=== PATIENT | female | born 1960 | race Caucasian/White ===

== ENCOUNTER 2017-07-11 04:08 | Emergency (ER) | payer OTHER ==
[~2017-07-11] VITALS: Ht 157.5 cm; Wt 59.0 kg
[2017-07-11] MEDS ORDERED: ASPI325 PO (04:38)
[2017-07-11 04:58] LABS: Source, Urine Clean Catch
[2017-07-11 05:00] LABS: Bilirubin, Urine Neg (Neg); Blood, Urine 4+ (Neg); Glucose Qualitative, Urine Neg (Neg); Ketones, Urine Neg (Neg); Leukocyte Esterase, Urine 2+ (Neg); Nitrite, Urine Pos (Neg); Protein, Urine 2+ (Neg); Specific Gravity, Urine 1.015 (1.003-1.022); Urobilinogen, Urine NORM (Normal); pH, Urine 6.5 (5.0-8.0)
[2017-07-11 05:02] LABS: BASOPHILS ABSOLUTE AUTO 0.03 K/mm3 (0.00-0.23); BASOPHILS PERCENT AUTO 0 % (0-2); EOSINOPHILS ABSOLUTE AUTO 0.03 K/mm3 (0.00-0.68); EOSINOPHILS PERCENT AUTO 0 % (0-6); Hematocrit 47.9 % (33.0-51.0); Hemoglobin 16.6 g/dL (11.5-16.0); IMMATURE GRAN ABSOLUTE AUTO 0.04 K/mm3 (0.00-0.10); IMMATURE GRAN PERCENT AUTO 0 % (0-1); LYMPHOCYTES PERCENT AUTO 18 % (21-46); MONOCYTES ABSOLUTE AUTO 0.89 K/mm3 (0.16-1.47); MONOCYTES PERCENT AUTO 7 % (4-13); Mean Corpuscular HGB 29.7 pg (26.0-34.0); Mean Corpuscular HGB Conc 34.7 g/dL (31.5-36.5); Mean Corpuscular Volume 86 fL (80-100); Mean Platelet Volume 9.9 fL (9.1-12.4); NEUTROPHILS ABSOLUTE AUTO 9.38 K/mm3 (1.96-9.15); NEUTROPHILS PERCENT AUTO 75 % (41-73); Platelet Count 361 K/mm3 (150-400); RDW Standard Deviation 37.4 fL (35.1-46.3); Red Blood Cell Count 5.59 M/mm3 (3.80-5.20); White Blood Cell Count 12.57 K/mm3 (4.00-11.30)
[2017-07-11 05:15] LABS: Appearance, Urine Hazy (Clear); Color, Urine Yellow (P-Yellow)
[2017-07-11 05:16] LABS: Bacteria Many /hpf; Squamous Epithelial Cells Mod /hpf (Few)
[2017-07-11 05:17] LABS: Amorphous Light (0-Heavy)
[2017-07-11 05:22] LABS: Alanine Aminotransfer (ALT/SGP 40 U/L (12-78); Albumin, Blood 4.5 g/dL (3.4-5.0); Alk Phos 100 U/L (50-136); Anion Gap 6 mmol/L (6-16); Aspartate Aminotrans (AST/SGOT 19 U/L (12-37); Bilirubin, Total 0.2 mg/dL (0.1-1.0); Blood Urea Nitrogen 15 mg/dL (8-24); CO2, Blood 25 mmol/L (21-32); Calcium, Blood 9.6 mg/dL (8.5-10.1); Chloride, Blood 107 mmol/L (98-108); Creatinine, Blood 0.71 mg/dL (0.40-1.00); Globulin, Blood 4.3 g/dL (2.2-4.0); Glomerular Filtration Rate >60 (60-); Glucose, Blood 105 mg/dL (70-99); Sodium, Blood 138 mmol/L (136-145); Total Protein, Blood 8.8 g/dL (6.4-8.2)
[2017-07-11] MEDS ORDERED: CEPH500 PO (06:41)
[2017-07-11] MEDS ORDERED: Norco 5-325 Ta1 EACH PO (06:41)
[2018-02-19] MEDS ORDERED: LOPRESSOR IV (06:37)
[2018-02-19] MEDS ORDERED: Zofran Odt4 MG PO (07:55)
[2018-02-19] MEDS ORDERED: CEFP200 PO (07:55)
[2018-02-19] MEDS ORDERED: Ultram50 MG PO (08:20)
== END 2017-07-11 06:54 | disposition home or self-care (01) ==
LOC: ER 04:08
PROVIDERS: Emergency Medicine
DX: N39.0 Urinary tract infection, site not specified (principal); Z88.2 Allergy status to sulfonamides; Z88.8 Allergy status to other drugs, medicaments and biological substances; Z79.82 Long term (current) use of aspirin; Z87.891 Personal history of nicotine dependence
CPT/HCPCS: 74176; 80053; 81001; 83690; 85025; 87077; 87086; 87186; 96361; 96374; 96375; 96376; 99284; J0696; J1170; J2405; J7030

== ENCOUNTER 2018-05-11 07:03 | Day surgery (SDC) | payer OTHER ==
[~2018-05-11 07:03] MED LIST: ASPI325 PO; CEFP200 PO; CEPH500 PO; LOPRESSOR IV; Norco 5-325 Ta1 EACH PO; Ultram50 MG PO; Zofran Odt4 MG PO
== END 2018-05-11 23:53 | disposition home or self-care (01) ==
LOC: MOI US 07:03
PROC: 0HBU3ZX Excision of Left Breast, Percutaneous Approach, Diagnostic (ICD-10-PCS; principal; 2018-05-11)
DX: N60.22 Fibroadenosis of left breast (principal); N60.92 Unspecified benign mammary dysplasia of left breast
CPT/HCPCS: 19083; 77065; 88305; 88342; A4648; G0279

== ENCOUNTER 2018-06-11 07:12 | Day surgery (SDC) | payer OTHER ==
[2018-06-11] MEDS ORDERED: Lopressor 50 mg50 MG PO (14:02)
[2018-06-11] MEDS ORDERED: METO50 PO (14:02)
== END 2018-06-11 22:58 | disposition home or self-care (01) ==
LOC: MOI MAM 07:12
DX: N63.20 Unspecified lump in the left breast, unspecified quadrant (principal)
CPT/HCPCS: 19285; 77065

== ENCOUNTER → 2018-11-19 | Outpatient (CLI) | payer OTHER ==
[~2018-11-19] MED LIST changes: +Lopressor 50 mg50 MG PO; +METO50 PO; +Prinivil10 MG PO
== END | disposition home or self-care (01) ==
LOC: LAB SHORT 13:42 → LAB 13:42 → LAB FUT 11-20 13:15
DX: N39.0 Urinary tract infection, site not specified (principal)
CPT/HCPCS: 87077; 87086; 87186

== ENCOUNTER → 2018-12-20 | Outpatient (CLI) | payer OTHER | END | disposition home or self-care (01) | LOC: LAB SHORT 09:18 → LAB 09:18 | DX: N39.0 Urinary tract infection, site not specified (principal) | CPT/HCPCS: 87077; 87086; 87186 ==

== ENCOUNTER → 2019-01-10 | Outpatient (CLI) | payer OTHER | END | disposition home or self-care (01) | LOC: LAB SHORT 09:21 → LAB 09:21 | DX: N39.0 Urinary tract infection, site not specified (principal) | CPT/HCPCS: 87086 ==

== ENCOUNTER 2019-05-14 08:05 | Emergency (ER) | payer OTHER ==
[~2019-05-14] VITALS: Ht 157.5 cm; Wt 75.8 kg
[2019-05-14 08:41] LABS: Source, Urine Clean Catch
[2019-05-14 08:46] LABS: Bilirubin, Urine Neg (Neg); Blood, Urine 4+ (Neg); Glucose Qualitative, Urine Neg (Neg); Ketones, Urine Neg (Neg); Leukocyte Esterase, Urine 3+ (Neg); Nitrite, Urine Pos (Neg); Protein, Urine 1+ (Neg); Urobilinogen, Urine NORM (Normal); pH, Urine 6.5 (5.0-8.0)
[2019-05-14 08:51] LABS: Appearance, Urine Hazy (Clear); Color, Urine Yellow (P-Yellow)
[2019-05-14 08:53] LABS: White Blood Cells, Urine 50-100 /hpf (0-5)
[2019-05-14 08:54] LABS: Amorphous Light (0-Heavy); Bacteria Many /hpf; Squamous Epithelial Cells Few /hpf (Few)
[2019-05-14 09:12] LABS: BASOPHILS ABSOLUTE AUTO 0.02 K/mm3 (0.00-0.23); BASOPHILS PERCENT AUTO 0 % (0-2); EOSINOPHILS ABSOLUTE AUTO 0.12 K/mm3 (0.00-0.68); EOSINOPHILS PERCENT AUTO 1 % (0-6); Hematocrit 40.6 % (33.0-51.0); Hemoglobin 13.6 g/dL (11.5-16.0); IMMATURE GRAN ABSOLUTE AUTO 0.05 K/mm3 (0.00-0.10); IMMATURE GRAN PERCENT AUTO 0 % (0-1); LYMPHOCYTES ABSOLUTE AUTO 0.91 K/mm3 (0.84-5.20); LYMPHOCYTES PERCENT AUTO 8 % (21-46); MONOCYTES ABSOLUTE AUTO 0.54 K/mm3 (0.16-1.47); MONOCYTES PERCENT AUTO 5 % (4-13); Mean Corpuscular HGB 30.2 pg (26.0-34.0); Mean Corpuscular HGB Conc 33.5 g/dL (31.5-36.5); Mean Corpuscular Volume 90 fL (80-100); Mean Platelet Volume 9.8 fL (9.1-12.4); NEUTROPHILS ABSOLUTE AUTO 9.57 K/mm3 (1.96-9.15); NEUTROPHILS PERCENT AUTO 85 % (41-73); Platelet Count 210 K/mm3 (150-400); RDW Coefficient Variation 11.8 % (11.7-14.2); RDW Standard Deviation 39.1 fL (35.1-46.3); Red Blood Cell Count 4.51 M/mm3 (3.80-5.20); White Blood Cell Count 11.21 K/mm3 (4.00-11.30)
[2019-05-14 09:30] LABS: Alanine Aminotransfer (ALT/SGP 55 U/L (12-78); Albumin/Globulin Ratio 1.1 (0.8-1.8); Anion Gap 8 mmol/L (6-16); Aspartate Aminotrans (AST/SGOT 27 U/L (12-37); Bilirubin, Total 0.5 mg/dL (0.1-1.0); Blood Urea Nitrogen 12 mg/dL (8-24); Bun/Creatinine Ratio 15.2 (12.0-20.0); CO2, Blood 27 mmol/L (21-32); Calcium, Blood 9.1 mg/dL (8.5-10.1); Chloride, Blood 105 mmol/L (98-108); Creatinine, Blood 0.79 mg/dL (0.40-1.00); Globulin, Blood 3.7 g/dL (2.2-4.0); Glomerular Filtration Rate >60 (60-); Glucose, Blood 94 mg/dL (70-99); Potassium, Blood 3.9 mmol/L (3.5-5.5); Sodium, Blood 140 mmol/L (136-145); Total Protein, Blood 7.7 g/dL (6.4-8.2)
[2019-05-14 09:31] LABS: Alk Phos 84 U/L (50-136)
[2019-05-14] MEDS ORDERED: ONDA4ODT MM (09:37)
[2019-05-14] MEDS ORDERED: Cefpodoxime Pr100 MG PO (09:37)
== END 2019-05-14 12:01 | disposition home or self-care (01) ==
LOC: ER 08:05
PROVIDERS: Emergency Medicine; Physician Assistant
DX: N12 Tubulo-interstitial nephritis, not specified as acute or chronic (principal); Z88.2 Allergy status to sulfonamides; Z88.8 Allergy status to other drugs, medicaments and biological substances; Z88.5 Allergy status to narcotic agent; Z79.82 Long term (current) use of aspirin; Z79.899 Other long term (current) drug therapy; Z87.891 Personal history of nicotine dependence
CPT/HCPCS: 36415; 80053; 81001; 85025; 87077; 87086; 87186; 96365; 99283-25; J0696; J7030

== ENCOUNTER → 2019-05-31 | Outpatient (CLI) | payer OTHER ==
[~2019-05-31] MED LIST changes: +Cefpodoxime Pr100 MG PO; +ONDA4ODT MM
== END | disposition home or self-care (01) ==
LOC: LAB SHORT 09:36 → LAB EV 09:36
DX: N39.0 Urinary tract infection, site not specified (principal)
CPT/HCPCS: 87086

== ENCOUNTER 2019-06-27 15:12 | Emergency (ER) | payer OTHER ==
[~2019-06-27] VITALS: Ht 157.5 cm; Wt 72.6 kg
[2019-06-27 15:48] LABS: BASOPHILS ABSOLUTE AUTO 0.02 K/mm3 (0.00-0.23); BASOPHILS PERCENT AUTO 0 % (0-2); EOSINOPHILS ABSOLUTE AUTO 0.13 K/mm3 (0.00-0.68); EOSINOPHILS PERCENT AUTO 2 % (0-6); Hematocrit 39.2 % (33.0-51.0); Hemoglobin 13.1 g/dL (11.5-16.0); IMMATURE GRAN ABSOLUTE AUTO 0.04 K/mm3 (0.00-0.10); IMMATURE GRAN PERCENT AUTO 0 % (0-1); LYMPHOCYTES ABSOLUTE AUTO 1.27 K/mm3 (0.84-5.20); LYMPHOCYTES PERCENT AUTO 14 % (21-46); MONOCYTES ABSOLUTE AUTO 0.33 K/mm3 (0.16-1.47); MONOCYTES PERCENT AUTO 4 % (4-13); Mean Corpuscular HGB 30.7 pg (26.0-34.0); Mean Corpuscular HGB Conc 33.4 g/dL (31.5-36.5); Mean Corpuscular Volume 92 fL (80-100); Mean Platelet Volume 10.3 fL (9.1-12.4); NEUTROPHILS ABSOLUTE AUTO 7.14 K/mm3 (1.96-9.15); NEUTROPHILS PERCENT AUTO 80 % (41-73); Platelet Count 208 K/mm3 (150-400); RDW Coefficient Variation 12.5 % (11.7-14.2); RDW Standard Deviation 41.8 fL (35.1-46.3); Red Blood Cell Count 4.27 M/mm3 (3.80-5.20); White Blood Cell Count 8.93 K/mm3 (4.00-11.30)
[2019-06-27 15:57] LABS: Ethanol (Alcohol), Blood, Med <3 mg/dL; Troponin I <0.015 ng/mL (0.000-0.040)
[2019-06-27 15:58] LABS: Alanine Aminotransfer (ALT/SGP 45 U/L (12-78); Albumin/Globulin Ratio 1.1 (0.8-1.8); Alk Phos 91 U/L (50-136); Anion Gap 6 mmol/L (6-16); Aspartate Aminotrans (AST/SGOT 24 U/L (12-37); Bilirubin, Total 0.4 mg/dL (0.1-1.0); Blood Urea Nitrogen 15 mg/dL (8-24); Bun/Creatinine Ratio 18.1 (12.0-20.0); CO2, Blood 27 mmol/L (21-32); Calcium, Blood 8.5 mg/dL (8.5-10.1); Chloride, Blood 106 mmol/L (98-108); Creatinine, Blood 0.83 mg/dL (0.40-1.00); Globulin, Blood 3.5 g/dL (2.2-4.0); Glomerular Filtration Rate >60 (60-); Glucose, Blood 86 mg/dL (70-99); Potassium, Blood 3.8 mmol/L (3.5-5.5); Sodium, Blood 139 mmol/L (136-145); Total Protein, Blood 7.5 g/dL (6.4-8.2)
[2019-06-27 16:04] LABS: International Normalized Ratio 0.96; Prothrombin Time Results 10.3 Sec (9.7-11.5)
== END 2019-06-27 17:10 | disposition short-term general hospital (02) ==
LOC: ER 15:12
PROVIDERS: Emergency Medicine
DX: I61.9 Nontraumatic intracerebral hemorrhage, unspecified (principal); J18.9 Pneumonia, unspecified organism; Z88.2 Allergy status to sulfonamides; Z88.8 Allergy status to other drugs, medicaments and biological substances; Z88.5 Allergy status to narcotic agent; Z79.899 Other long term (current) drug therapy; Z79.82 Long term (current) use of aspirin; Z87.891 Personal history of nicotine dependence
CPT/HCPCS: 31500; 36415; 70450; 71045; 80053; 84484; 85025; 85610; 85730; 93005; 93010; 96365-59; 99291-25; G0480; J1956; J2704; J7050

== ENCOUNTER 2020-02-13 07:26 | Observation (INO) | payer OTHER ==
[~2020-02-13] VITALS: Wt 67.2 kg
[~2020-02-13 07:26] MED LIST changes: +CEFD300 PO; +FURO40 PO; +Klor-Con 1010 MEQ PO
[2020-02-13 11:25] LABS: Alanine Aminotransfer (ALT/SGP 21 U/L (12-78); Albumin, Blood 3.7 g/dL (3.4-5.0); Alk Phos 75 U/L (50-136); Anion Gap 15 mmol/L (6-16); Aspartate Aminotrans (AST/SGOT 17 U/L (12-37); Bilirubin, Total 0.4 mg/dL (0.1-1.0); Blood Urea Nitrogen 9 mg/dL (8-24); Bun/Creatinine Ratio 11.4 (12.0-20.0); CO2, Blood 18 mmol/L (21-32); Calcium, Blood 8.9 mg/dL (8.5-10.1); Chloride, Blood 104 mmol/L (98-108); Creatinine, Blood 0.79 mg/dL (0.40-1.00); Globulin, Blood 3.6 g/dL (2.2-4.0); Glomerular Filtration Rate >60 (60-); Glucose, Blood 120 mg/dL (70-99); Potassium, Blood 3.9 mmol/L (3.5-5.5); Sodium, Blood 137 mmol/L (136-145); Total Protein, Blood 7.3 g/dL (6.4-8.2); Troponin I <0.015 ng/mL (0.000-0.040)
[2020-02-13 13:44] LABS: Source, Urine Clean Catch
[2020-02-13 14:46] LABS: Appearance, Urine Clear (Clear); Bilirubin, Urine Neg (Neg); Blood, Urine 2+ (Neg); Color, Urine Yellow (P-Yellow); Glucose Qualitative, Urine Neg (Neg); Ketones, Urine Neg (Neg); Leukocyte Esterase, Urine Neg (Neg); Nitrite, Urine Neg (Neg); Protein, Urine Neg (Neg); Specific Gravity, Urine 1.015 (1.003-1.022); Urobilinogen, Urine NORM (Normal)
[2020-02-13 14:47] LABS: Bacteria Many /hpf; Squamous Epithelial Cells Mod /hpf (Few)
[2020-02-13 15:03] LABS: BASOPHILS ABSOLUTE AUTO 0.03 K/mm3 (0.00-0.23); BASOPHILS PERCENT AUTO 0 % (0-2); EOSINOPHILS ABSOLUTE AUTO 0.28 K/mm3 (0.00-0.68); EOSINOPHILS PERCENT AUTO 4 % (0-6); Hematocrit 40.1 % (33.0-51.0); Hemoglobin 13.1 g/dL (11.5-16.0); IMMATURE GRAN ABSOLUTE AUTO 0.03 K/mm3 (0.00-0.10); IMMATURE GRAN PERCENT AUTO 0 % (0-1); LYMPHOCYTES ABSOLUTE AUTO 2.52 K/mm3 (0.84-5.20); LYMPHOCYTES PERCENT AUTO 32 % (21-46); MONOCYTES ABSOLUTE AUTO 0.67 K/mm3 (0.16-1.47); MONOCYTES PERCENT AUTO 8 % (4-13); Mean Corpuscular HGB 29.9 pg (26.0-34.0); Mean Corpuscular HGB Conc 32.7 g/dL (31.5-36.5); Mean Corpuscular Volume 92 fL (80-100); Mean Platelet Volume 10.5 fL (9.1-12.4); NEUTROPHILS ABSOLUTE AUTO 4.47 K/mm3 (1.96-9.15); NEUTROPHILS PERCENT AUTO 56 % (41-73); Platelet Count 221 K/mm3 (150-400); RDW Coefficient Variation 13.9 % (11.7-14.2); Red Blood Cell Count 4.38 M/mm3 (3.80-5.20)
[2020-02-13 15:04] LABS: Prothrombin Time Results 10.7 Sec (9.7-11.5)
[2020-02-13] MEDS ORDERED: FAMO20 PO (15:14)
[2020-02-13] MEDS ORDERED: METO50 PO (15:14)
[2020-02-13] MEDS ORDERED: FURO20 PO (15:14)
[2020-02-13] MEDS ORDERED: CITA20 PO (15:14)
[2020-02-13] MEDS ORDERED: LISI20 PO (15:14)
[2020-02-13] MEDS ORDERED: POTA10T PO (15:15)
--- NOTE | 2020-02-13 18:52 | NUR ---
PATIENT TRANSFERED FROM ED VIA GURNEY, PATIENT IS POSTICTAL, ARMS TENSED AND CONTRACTED. NO SIGNS OF ACUTE DISTRESS, WCTM.
[2020-02-14 03:42] LABS: BASOPHILS ABSOLUTE AUTO 0.03 K/mm3 (0.00-0.23); BASOPHILS PERCENT AUTO 1 % (0-2); EOSINOPHILS ABSOLUTE AUTO 0.11 K/mm3 (0.00-0.68); EOSINOPHILS PERCENT AUTO 2 % (0-6); Hematocrit 35.2 % (33.0-51.0); Hemoglobin 11.5 g/dL (11.5-16.0); IMMATURE GRAN ABSOLUTE AUTO 0.01 K/mm3 (0.00-0.10); IMMATURE GRAN PERCENT AUTO 0 % (0-1); LYMPHOCYTES PERCENT AUTO 20 % (21-46); MONOCYTES ABSOLUTE AUTO 0.53 K/mm3 (0.16-1.47); MONOCYTES PERCENT AUTO 9 % (4-13); Mean Corpuscular HGB 29.9 pg (26.0-34.0); Mean Corpuscular HGB Conc 32.7 g/dL (31.5-36.5); Mean Corpuscular Volume 92 fL (80-100); Mean Platelet Volume 10.5 fL (9.1-12.4); NEUTROPHILS ABSOLUTE AUTO 3.99 K/mm3 (1.96-9.15); NEUTROPHILS PERCENT AUTO 68 % (41-73); Platelet Count 168 K/mm3 (150-400); RDW Coefficient Variation 13.9 % (11.7-14.2); RDW Standard Deviation 46.9 fL (35.1-46.3); Red Blood Cell Count 3.84 M/mm3 (3.80-5.20); White Blood Cell Count 5.87 K/mm3 (4.00-11.30)
[2020-02-14 04:00] LABS: Alanine Aminotransfer (ALT/SGP 14 U/L (12-78); Albumin, Blood 3.2 g/dL (3.4-5.0); Albumin/Globulin Ratio 1.1 (0.8-1.8); Alk Phos 65 U/L (50-136); Anion Gap 6 mmol/L (6-16); Aspartate Aminotrans (AST/SGOT 15 U/L (12-37); Bilirubin, Total 0.3 mg/dL (0.1-1.0); Blood Urea Nitrogen 4 mg/dL (8-24); CO2, Blood 25 mmol/L (21-32); Calcium, Blood 8.6 mg/dL (8.5-10.1); Chloride, Blood 113 mmol/L (98-108); Creatinine, Blood 0.57 mg/dL (0.40-1.00); Globulin, Blood 2.9 g/dL (2.2-4.0); Glomerular Filtration Rate >60 (60-); Glucose, Blood 85 mg/dL (70-99); Potassium, Blood 3.6 mmol/L (3.5-5.5); Sodium, Blood 144 mmol/L (136-145); Total Protein, Blood 6.1 g/dL (6.4-8.2)
--- NOTE | 2020-02-14 05:24 | NUR ---
SHIFT SUMMARY PT LETHARGIC; AT TIMES PARTICIPATES W/ ATTENDS CHANGE; R SIDED WEAKNESS CONTINUES; PT CLUTCHES R ARM; AT TIMES MOANS W/ REPOSITIONING; CURRENTLY PT IS COMMUNICATING SHE WANTS TO GO HOME; VSS; NSR NOTED ON TELE; O2 SATS >93 ON 4L NC; PT INCONTINENT W/ ATTENDS IN PLACE; ORIENTED TO ROOM / CALL LIGHT; SAFETY EDUCATION PROVIDED; SEIZURE PRECAUTIONS IN PLACE; CALL LIGHT IN REACH; BED IN LOWEST POSITION; WILL CONTINUE TO MONITOR CLOSELY UNTIL HAND OFF TO DAY SHIFT RN.
[2020-02-14 07:30] LABS: Calcium, Ionized (POC) 1.17 mmol/L (1.10-1.46); Chloride (POC) 101 mmol/L (98-108); Creatinine (POC) 0.8 mg/dL (0.6-1.0); Glucose (ISTAT POC) 117 mg/dL (70-99); Hemoglobin (POC) 13.9 g/dL (12.0-16.0); Potassium (POC) 3.9 mmol/L (3.5-5.5); Sodium (POC) 138 mmol/L (135-148); Total CO2 (POC) 19 mmol/L (21-32)
[2020-02-14] MEDS ORDERED: CEPH500 PO (15:54)
[2020-02-14] MEDS ORDERED: Diastat2.5 MG PR (16:02)
[2020-02-14] MEDS ORDERED: LEVE500 PO (16:03)
--- NOTE | 2020-02-14 18:16 | NUR ---
DISCHARGE: PACKET PRINTED AND PT/PT EDUCATED. EDUCATED ON WHAT ACTIONS TO TAKE IF PT WERE TO HAVE ANOTHER SEIZURE. PT GIVEN SCRIPT, IRAJ, SOAP INSPECTOR FAXED MEDS TO [facility]. PT LEFT UNIT VIA WHEELCHAIR WITH PCU BRIM IRONER HAND AT ABOUT 1640.
== END 2020-02-14 17:01 | disposition home or self-care (01) ==
LOC: ER 07:26 → ERHOLD 07:27 → PCU 18:41
PROVIDERS: Emergency Medicine; ADMIT Family Medicine
DX: R56.9 Unspecified convulsions (principal); I95.9 Hypotension, unspecified; N39.0 Urinary tract infection, site not specified; I10 Essential (primary) hypertension; F32.9 Major depressive disorder, single episode, unspecified; I69.351 Hemiplegia and hemiparesis following cerebral infarction affecting right dominant side; I69.391 Dysphagia following cerebral infarction; R13.10 Dysphagia, unspecified; Z90.710 Acquired absence of both cervix and uterus; Z87.891 Personal history of nicotine dependence; Z88.2 Allergy status to sulfonamides; Z88.5 Allergy status to narcotic agent; Z91.041 Radiographic dye allergy status; Z79.899 Other long term (current) drug therapy; Z23 Encounter for immunization
CPT/HCPCS: 36415; 70450; 71045; 80047; 80053; 81001; 84484; 85014; 85025; 85610; 85730; 87077; 87086; 87186; 92610; 93005; 93010; 96361; 96365; 96367; 96372; 96375; 97165; 97530; 99285-25; G0378; J0696; J1650; J1953; J2060; J7030

== ENCOUNTER 2020-03-22 05:14 | Inpatient (IN) | payer OTHER ==
[~2020-03-22] VITALS: Ht 167.6 cm; Wt 64.4 kg
[~2020-03-22 05:14] MED LIST changes: +CITA20 PO; +Diastat2.5 MG PR; +FAMO20 PO; +FURO20 PO; +LEVE500 PO; +LISI20 PO; +POTA10T PO
[2020-03-22] MEDS ORDERED: METO25 PO (05:41)
[2020-03-22] MEDS ORDERED: FURO40 PO (05:42)
[2020-03-22 05:58] LABS: BASOPHILS ABSOLUTE AUTO 0.04 K/mm3 (0.00-0.23); BASOPHILS PERCENT AUTO 0 % (0-2); EOSINOPHILS ABSOLUTE AUTO 0.15 K/mm3 (0.00-0.68); EOSINOPHILS PERCENT AUTO 2 % (0-6); Hematocrit 41.6 % (33.0-51.0); Hemoglobin 13.9 g/dL (11.5-16.0); IMMATURE GRAN ABSOLUTE AUTO 0.04 K/mm3 (0.00-0.10); IMMATURE GRAN PERCENT AUTO 0 % (0-1); LYMPHOCYTES ABSOLUTE AUTO 2.25 K/mm3 (0.84-5.20); LYMPHOCYTES PERCENT AUTO 25 % (21-46); MONOCYTES ABSOLUTE AUTO 0.64 K/mm3 (0.16-1.47); MONOCYTES PERCENT AUTO 7 % (4-13); Mean Corpuscular HGB 29.9 pg (26.0-34.0); Mean Corpuscular HGB Conc 33.4 g/dL (31.5-36.5); Mean Corpuscular Volume 90 fL (80-100); Mean Platelet Volume 10.4 fL (9.1-12.4); NEUTROPHILS ABSOLUTE AUTO 5.81 K/mm3 (1.96-9.15); NEUTROPHILS PERCENT AUTO 65 % (41-73); Platelet Count 295 K/mm3 (150-400); RDW Coefficient Variation 12.3 % (11.7-14.2); RDW Standard Deviation 40.3 fL (35.1-46.3); Red Blood Cell Count 4.65 M/mm3 (3.80-5.20); White Blood Cell Count 8.93 K/mm3 (4.00-11.30)
[2020-03-22 06:09] LABS: Alanine Aminotransfer (ALT/SGP 18 U/L (12-78); Albumin, Blood 3.8 g/dL (3.4-5.0); Albumin/Globulin Ratio 1.1 (0.8-1.8); Alk Phos 76 U/L (50-136); Anion Gap 14 mmol/L (6-16); Aspartate Aminotrans (AST/SGOT 24 U/L (12-37); Bilirubin, Total 0.3 mg/dL (0.1-1.0); Blood Urea Nitrogen 9 mg/dL (8-24); Bun/Creatinine Ratio 11.4 (12.0-20.0); CO2, Blood 21 mmol/L (21-32); Chloride, Blood 103 mmol/L (98-108); Creatinine, Blood 0.79 mg/dL (0.40-1.00); Ethanol (Alcohol), Blood, Med <3 mg/dL; Globulin, Blood 3.6 g/dL (2.2-4.0); Glomerular Filtration Rate >60 (60-); Glucose, Blood 129 mg/dL (70-99); Potassium, Blood 3.8 mmol/L (3.5-5.5); Salicylate 1.8 mg/dL (2.8-20.0); Sodium, Blood 138 mmol/L (136-145); Total Protein, Blood 7.4 g/dL (6.4-8.2); Troponin I 0.095 ng/mL (0.000-0.040)
[2020-03-22 06:13] LABS: Acetaminophen, Random <2.0 ug/mL (10.0-30.0)
[2020-03-22 06:36] LABS: Source, Urine Clean Catch
[2020-03-22 06:39] LABS: Bilirubin, Urine Neg (Neg); Blood, Urine 3+ (Neg); Glucose Qualitative, Urine Neg (Neg); Ketones, Urine 1+ (Neg); Leukocyte Esterase, Urine Neg (Neg); Nitrite, Urine Pos (Neg); Protein, Urine 1+ (Neg); Specific Gravity, Urine 1.015 (1.003-1.022); Urobilinogen, Urine NORM (Normal); pH, Urine 6.5 (5.0-8.0)
[2020-03-22 06:46] LABS: Appearance, Urine Hazy (Clear); Color, Urine Yellow (P-Yellow)
[2020-03-22 06:48] LABS: Bacteria Many /hpf; Squamous Epithelial Cells Many /hpf (Few)
[2020-03-22 07:03] LABS: U Amphetamine Screen Not Detected; U Barbituate Screen Not Detected; U Benzodiazapine Screen Not Detected; U Buprenorphine Screen Not Detected; U Cannabinoids Screen Not Detected; U Cocaine Screen Not Detected; U Methadone Screen Not Detected; U Methamphetamine Screen Not Detected; U Opiates Screen Not Detected; U Oxycodone Screen Not Detected; U Phencyclidine Screen Not Detected; U Propoxyphene Screen Not Detected
--- NOTE | 2020-03-22 15:30 | NUR ---
UPDATE PT HAS BEEN HAVING PAIN. AT 1430 - THIS RN AND THE RESTAURANT KITCHEN AND SERVICE MANAGER WENT TO REPOSITION THE PT AND WHEN WE WOKE HER UP TO REPOSITION HER TO HER RIGHT SIDE, SHE STARTED MOANING/CRYING OUT SHE APPEARED TO BE IN PAIN, SHE WAS SQURIMING AROUND - TRYING TO GET OFF HER BUTT, BUT WHEN WE PUT HER ON HER SIDE, SHE DIDN'T WANT THAT AND WENT BACK ON HER BACK/BUTT. IT WAS DIFFICULT COMMUNICATING WITH HER SHE HAS AN APHASIA FROM A PREVIOUS CVA. SHE CAN NOD YES AND SHAKE HER HEAD NO TO MOST QUESTIONS - SOMETIMES SHE DOESN'T EVEN DO THAT. SHE POINTED ON OUR COMMUNICATION BOARD TO THE [place] REGION. I TALKED TO HER AND HE TOLD ME THAT SHE WILL OFTEN HAVE PAIN IN HER [place] REGION AND RIGHT LOWER EXTREMITY. I THEN DID A BEDSIDE SWALLOW EVAL SHE WAS AWAKE AND MAINTAING HER ALERTNESS. SHE DID FINE, NO APPARENT ISSUES, NO VOICE CHANGES, NO COUGHING. I THEN GAVE HER A DOSE OF NORCO AND TORADOL IV. SHE HAS BEEN SLEEPING SINCE, AND HAS A FLACC OF 3 OR LESS. HER IS AT THE BEDSIDE, HE TAKES CARE OF HER AT HOME. WILL CONTINUE TO MONITOR.
--- NOTE | 2020-03-22 16:44 | NUR ---
UPDATE/BLOOD PRESSURE PT HAS HAD SOFT BLOOD PRESSURES T/O DAY, MAP HAS BEEN MAINTAINED IN THE 60-67 RANGE, WITH A FEW IN THE UPPER 50s. SBP HAS BEEN 75-85 FOR THE MAJORITY OF THE DAY WITH A FEW IN THE 90s. AND DIASTOLIC HAS BEEN IN THE 50s. FAINT PULSES IN THE PEDAL, BUT STRONG IN THE RADIAL, CAP REFIL < 3s ALL FOUR EXTREMITIES. COLOR APPEARS TO BE AT BASELINE, PER . PT HAS COOL FEET, BUT THIS IS NOT ABNORMAL FOR PT. ASIDE FROM THE TIME SHE WAS AWAKE IN PAIN, SHE HAS BEEN SLEEPING FOR THE MAJORITY OF THE DAY. I HAVE TRIED BOTH ARMS - HER RIGHT ARM HAS CONTRACTURES, AND HER LEFT ARM SHE WOULD MOVE QUITE A BIT. SOME OF THE BLOOD PRESSURES MAY NOT BE COMPLETELY ACCURATE. I CALLED DR. MCKEON AND TOLD HIM ABOUT THE BLOOD PRESSURE, AND THE POOR INTAKE SHE HAS BEEN SLEEPING -- AND HE ORDERED A 500 ML NS BOLUS, AND A BMP TO BE DRAWN AT 1999.
[2020-03-22] MEDS ORDERED: DOCU100 PO (17:02)
--- NOTE | 2020-03-22 18:27 | NUR ---
SHIFT SUMMARY 500 ML NS BOLUS GIVEN, PT REMAINS HYPOTENSIVE MAP 55-65 - PT WILL OFTEN MOVE LEFT ARM SOON IT STARTS TAKING HER BP IT CAN BE UNCOMFORTABLE FOR HER. I HAVE MOVED IT TO HER RIGHT ARM - BUT UNSURE HOW ACCURATE THAT SITE IS. BESIDES BEING SLEEPY - SHE DOES NOT APPEAR TO BE SYMPTOMATIC OF HYPOTENSION. WARM EXTREMETIES, CAP REFILL < 3s IN ALL EXTREMS, FAINT PEDAL PULSES (BASELINE), STRONG RADIAL PULSES -- (ALL EQUAL BILATERALLY), SHE HAS HAD 750 ML OF URINE IN HER CORTES FOR THE DAY, AND WHEN SHE IS AWAKE SHE IS ABLE TO NOD YES, AND SHAKE HER HEAD NO APPROPRIATELY TO MOST QUESTIONS. THE HAS BEEN BY HER SIDE FROM [id number], AND STATES THAT SHE IS AT HER BASELINE, DESPITE THE SLEEPINESS - BUT THAT THIS IS WHAT SHE WAS LIKE AFTER HER LAST TWO SEIZURES. D5-1/2NS WITH 20 KCL IS INFUSING AT 75 ML/HR. SHE IS CURRENTLY ASLEEP. HR HAS TRENDED DOWNWARD FROM THE 110s TO NOW IN THE 90s, SINUS. SHE IS ON 2L NC FOR SUPPORT BUT HAS HAD HIGH 90s FOR SPO2 T/O DAY. FLACC HAS BEEN < 3 SINCE HER EPISODE OF PAIN EARLIER ( BELIEVES THE PAIN WAS IN HER TAILBONE/RIGHT LEG). SHE IS LEANED ON HER RIGHT SIDE CURRENTLY AND IS SLOUCHED DOWN - BUT APPEARS COMFORTABLE - PER . BED LOW AND LOCKED. CALL LIGHT WITHIN REACH. YULY - NURSING SUPERVISER - HAS APPROVED DI () TO BE ABLE TO BE HERE WHENEVER POSSIBLE HE CAN COMMUNICATE WITH HER BETTER, AND IS HER DECISION MAKER/LIFT MECHANIC AND HELPS CALM HER DOWN.
--- NOTE | 2020-03-22 18:45 | NUR ---
ANNA MARIE RN CALLING TO VERFIY ADMIT ORDERS. PT PLACED PCU STATUS.
--- NOTE | 2020-03-22 19:00 | NUR ---
ASSUMED CARE NOTE: ASSUMED CARE OF PT AT 1900, RECEVIED REPORT FROM ANNA MARIE RN. PT IS AWAKE HOWEVER DROSWY. ABLE TO COMMUNICATE USING HEAD GEASTURES TO ANSWER YES/NO QUESTIONS, ABLE TO USE THE COMMUNICATION BOARD. PT IS ON 2L OF 02 VIA NC, SPO2 ABOVE 95%, LUNG SOUNDS DIMINISHED T/O, NO COUGH PRESENT. PT IS IN SINUS TO SINUS TACH, HR BETWEEN 90-110. BP'S ARE LOW, 60'S/40'S WITH MAP IN THE LOW 50'S. WAS NOTIFIED OF LOW BP'S PER ANNA MARIE CARDOSO RN, ORDERS GIVEN FOR NS 500ML BOLUS. WILL CONTINUE TO MONITOR BP Q15. MANUAL BP OBTAIN TO LEFT ARM, AND RIGHT ARM BOTH READING SBP IN THE 60'S. PT PALE, NON- DIAPORETIC, COOL TO THE TOUCH IN ALL EXTREMITIES, AFEBRILE, CAP REFILL LESS THAN 3 SECOUNDS TO ALL EXTREMITIES. ABDOMEN SOFT, NON-TENDER TO PALPATIONS, ACTIVE BT HEARD IN ALL QUADRANTS. CORTES CATHETER CLAMPED TO OBTAIN CATHETER INSERTION UA PER PROTOCOL. PT REPOSITIONED FOR COMFORT. BED AT LOWEST LEVEL.
--- NOTE | 2020-03-22 20:00 | NUR ---
CALLED REGARDING BMP RESULTS, AND UPDATED HIM ON PT'S BP, THE 500ML BOLUS GIVEN AT SHIFT CHANGE HAD NO EFFECT. ADVISED TO HAVE NIGHT HOSPITALIST CALLED FOR MANAGMENT OF BP.
[2020-03-22 20:01] LABS: Anion Gap 7 mmol/L (6-16); Blood Urea Nitrogen 8 mg/dL (8-24); Bun/Creatinine Ratio 11.9 (12.0-20.0); CO2, Blood 23 mmol/L (21-32); Calcium, Blood 8.4 mg/dL (8.5-10.1); Chloride, Blood 116 mmol/L (98-108); Creatinine, Blood 0.67 mg/dL (0.40-1.00); Glomerular Filtration Rate >60 (60-); Glucose, Blood 102 mg/dL (70-99); Potassium, Blood 3.8 mmol/L (3.5-5.5); Sodium, Blood 146 mmol/L (136-145)
--- NOTE | 2020-03-22 20:18 | NUR ---
CALLED REGARDING LOW BLOOD PRESSURE 66/46, MAP 53, HR IN THE 80'S. ORDERS WILL BE PLACED SHORTLY.
--- NOTE | 2020-03-22 21:22 | NUR ---
CALLED REGARDING LOW BP 67/52, MAP OF 57, HR IN THE 80'S. PT IS DROWSY, HOWEVER ABLE TO AROUSE TO VERBAL STIMULI. LEVOPHED WILL BE STARTED VIA PHERIPHERAL IV, CAN TITRATE UP TO 8MCG/MIN -PER ORDERS.
[2020-03-22 22:00] LABS: Source, Urine Catheter
--- NOTE | 2020-03-22 22:05 | NUR ---
UPDATE/BP NEW 18G TO R AC PLACED BY GEORGINA CHARGE NURSE USING ULTRASOUND. LEVOPHED INITATED AT 2MCG/MIN AT Y SITE TO 10ML/HR NS RUNNING. WILL CONTINUE TO MONITOR SITE T/O SHIFT. PT REPOSITIONED, DENIES ANY PAIN AT THIS TIME.
[2020-03-22 22:08] LABS: Appearance, Urine Clear (Clear); Bilirubin, Urine Neg (Neg); Blood, Urine 2+ (Neg); Color, Urine Amber (P-Yellow); Glucose Qualitative, Urine Neg (Neg); Ketones, Urine 1+ (Neg); Leukocyte Esterase, Urine 3+ (Neg); Nitrite, Urine Pos (Neg); Protein, Urine 2+ (Neg); Specific Gravity, Urine 1.025 (1.003-1.022); Urobilinogen, Urine 1+ (Normal)
[2020-03-22 22:14] LABS: Bacteria Many /hpf; Mucus Heavy (0-Heavy); Red Blood Cells, Urine 0-2 /hpf (0-2); Squamous Epithelial Cells Few /hpf (Few); White Blood Cells, Urine 25-50 /hpf (0-5)
--- NOTE | 2020-03-23 00:49 | NUR ---
UPDATE: LEVOPHED RUNNING AT 3MCG/MIN VIA R AC PERIPHERAL IV, IV FLUSHED AND WAS ABLE TO OBTAIN BLOOD RETURN, NO REDNESS, INFILTRATION NOTED TO SITE. WILL CONTINUE TO MONITOR PT.
--- NOTE | 2020-03-23 02:05 | NUR ---
UPDATE: URINE OUTPUT INCREASED, PRODUCED 200ML IN THE LAST HOUR. PT CONTINUES TO BE ON LEVOPHED AT 3MCG/MIN, SBP 90'S, MAP ABOVE 65. RIGHT AC 20G IV SITE IS FREE FROM SWELLING, REDDNESS.
--- NOTE | 2020-03-23 02:51 | NUR ---
UPDATE: PT WOKE UP FROM SLEEP, YELLING " WATER", PT SAT UP 90 DEGREES AND GIVEN WATER. PT WAS UPSET THAT SHE WAS WOKEN UP BY REPOSITIONING. SHE HAS HAVING DIFFICULTIES COMMUNICATING AND WANTED TO BE LEFT ALONE. CALL LIGHT WITHIN IN REACH, BED AT LOWEST LEVEL.
[2020-03-23 03:32] LABS: BASOPHILS ABSOLUTE AUTO 0.02 K/mm3 (0.00-0.23); BASOPHILS PERCENT AUTO 0 % (0-2); EOSINOPHILS ABSOLUTE AUTO 0.05 K/mm3 (0.00-0.68); EOSINOPHILS PERCENT AUTO 1 % (0-6); Hematocrit 34.5 % (33.0-51.0); Hemoglobin 11.3 g/dL (11.5-16.0); IMMATURE GRAN ABSOLUTE AUTO 0.02 K/mm3 (0.00-0.10); IMMATURE GRAN PERCENT AUTO 0 % (0-1); LYMPHOCYTES ABSOLUTE AUTO 1.88 K/mm3 (0.84-5.20); LYMPHOCYTES PERCENT AUTO 22 % (21-46); MONOCYTES ABSOLUTE AUTO 0.71 K/mm3 (0.16-1.47); MONOCYTES PERCENT AUTO 8 % (4-13); Mean Corpuscular HGB 29.4 pg (26.0-34.0); Mean Corpuscular HGB Conc 32.8 g/dL (31.5-36.5); Mean Corpuscular Volume 90 fL (80-100); Mean Platelet Volume 10.4 fL (9.1-12.4); NEUTROPHILS ABSOLUTE AUTO 5.93 K/mm3 (1.96-9.15); NEUTROPHILS PERCENT AUTO 69 % (41-73); Platelet Count 231 K/mm3 (150-400); RDW Coefficient Variation 12.4 % (11.7-14.2); RDW Standard Deviation 41.1 fL (35.1-46.3); Red Blood Cell Count 3.84 M/mm3 (3.80-5.20); White Blood Cell Count 8.61 K/mm3 (4.00-11.30)
[2020-03-23 03:50] LABS: Alanine Aminotransfer (ALT/SGP 18 U/L (12-78); Albumin/Globulin Ratio 1.1 (0.8-1.8); Alk Phos 59 U/L (50-136); Anion Gap 6 mmol/L (6-16); Aspartate Aminotrans (AST/SGOT 20 U/L (12-37); Bilirubin, Total 0.4 mg/dL (0.1-1.0); Blood Urea Nitrogen 5 mg/dL (8-24); Bun/Creatinine Ratio 7.7 (12.0-20.0); CO2, Blood 24 mmol/L (21-32); Calcium, Blood 8.1 mg/dL (8.5-10.1); Chloride, Blood 115 mmol/L (98-108); Creatinine, Blood 0.65 mg/dL (0.40-1.00); Globulin, Blood 2.8 g/dL (2.2-4.0); Glomerular Filtration Rate >60 (60-); Glucose, Blood 117 mg/dL (70-99); Potassium, Blood 3.7 mmol/L (3.5-5.5); Sodium, Blood 145 mmol/L (136-145); Total Protein, Blood 5.8 g/dL (6.4-8.2)
--- NOTE | 2020-03-23 05:51 | NUR ---
SHIFT SUMMARY: PT IS ALERT AND ORINETED TO SELF, PLACE. IS ABLE TO FOLLOW COMMANDS. COMMUINCATES BY USING HEAD GESTURES. ABLE TO USE COMMUNICATION BOARD. BECOMES FRUSTRATED WHEN CANNOT BE UNDERSTOOD. PT CAN SAY A FEW WORDS, HOWEVER EXPERIENCES APHASIA. PT SWALLOWS LIQUIDS AND PILLS SAFLEY, NO SIGNS OF ASPIRATION NOTED. PT CONTINUES TO BE ON 2L OF 02 VIA NC, SPO2 AT 94%. WHEN ASKED IF SHE USES OXYGEN AT HOME, SHE NODS " YES" PT HAS BEEN IN SINUS-SINUS TACH T/O SHIFT , HR RANGING FROM 80-110. LEVOPHED TITRATED DURING SHIFT, CURRENTLY ON STAND-BY OFF 0500. MAP MAINTAINING ABOVE 65. PT HAS NOT HAD A BM, THIS SHIFT. CORTES DRAINING CLEAR YELLOW URINE, 900ML OUTPUT THIS SHIFT. PT STS SHE WANTS "HOME" PT HAS BEEN REFUSING TO BE REPOSITIONED THE LAST FEW HOURS. WILL CONTINUE TO MONITOR PT UNTIL REPORT IS GIVEN TO ONCOMING SHIFT.
--- NOTE | 2020-03-23 08:55 | NUR ---
03/23/2020 AT 0700 STUDENT REQUESTED PERMISSION TO PROVIDE CARE AND ACCESS CHART. PATIENT AGREES.
--- NOTE | 2020-03-23 09:02 | NUR ---
CARE ASSUMED CARE AND REPORT ASSUMED FROM NURY GUAJARDO. PT AWAKE AND ALERT IN ROOM. SHE DOES HAVE EXPRESSIVE APHASIA, AND EASILY BECOMES FRUSTRATED WHEN SHE CANNOT PROPERLY EXPRESS HER WORDS. R SIDED WEAKNESS WITH CONTRACTURE TO R ARM. R ARM IS STIFF WITH LIMITED ROM. R LEG DOES STRAIGHTEN. PT REPORTS TINGLING SENSATION IN RUE AND RLE. NSR, HR 80-90S WITH ST DEPRESSION. NOC SHIFT REPORTS RHYTHM CHANGE SOMETIME DURING HER SHIFT. EKG COMPLETED THIS AM; WILL SHOW TO PHYSICIAN. CURRENTLY WEARING 2L NC, REPORTS SHE DOES WEAR O2 AT HOME; UNKNOWN AMOUNT. PT HAD MODERATE, BROWN BM THIS MORNING; VILLA CARE COMPLETED AND LINENS CHANGED. CORTES CATH SECURED AND PATENT. MARTINE PERIPHERAL IV INFILTRATED; REMOVED AND ANOTHER INSERTED. LEVOPHED GTT INFUSING AT 1 MCG THROUGH 18G IN MICAELA; WILL MONTIOR CLOSELY. LR INFUSING AT 125 ML/HR PER ORDER. PT REFUSED BREAKFAST THIS AM. STATING SHE WANTS TO GO HOME. WILL CONTINUE TO MONITOR.
--- NOTE | 2020-03-23 11:41 | NUR ---
REASSESSMENT LEVOPHED GTT OFF SINCE 829. MAP 80-90S. PT STOOD AND PIVOTED INTO RECLINER CHAIR WHERE SHE SAT UP FOR A FEW HOURS. WORKED WITH OT WELL. PT WAS ABLE TO STAND AND PIVOT TO BEDSIDE COMMODE WHERE SHE HAD A LARGE BM. FOLLOWING HER STANDING AND PIVOTING, SHE BECOMES EASILY DYSPNIC. LUNG SOUNDS COARSE AND WHEEZY THROUGHOUT ALL QUACH. CHEST XR OBTAINED PER MD ORDER. PT DOES HAVE MOIST SOUNDING COUGH. MD ANTONIA FALL CALLED TO INFORM OF RESPIRATORY CHANGES. LR MIV DISCONTINUED. ALBUTEROL INHALER ORDERERED AND GIVEN TO PT AT THIS TIME BY RT. AFEBRILE. WILL CONTINUE TO MONITOR.
[2020-03-23 13:51] LABS: International Normalized Ratio 1.03
--- NOTE | 2020-03-23 14:33 | NUR ---
Echocardiogram using 0.50ml of Definity contrast performed.
--- NOTE | 2020-03-23 17:23 | NUR ---
SHIFT SUMMARY PT UP MOST OF DAY. OUT OF BED WITH 1-2 PERSON ASSIST AND ONLY PIVOTS AROUND. SHE DID WORK WITH OCCUPATIONAL AND PHYSICAL THERAPIES TODAY. SAT IN RECLINER CHAIR FOR FEW HOURS TODAY AND VISITED WITH . LEVOPHED GTT TURNED OFF AT 0830 THIS AM. PT HAS REMAINED ON 2L NC ALL DAY; DESATURATES TO 87% WITH NO O2. CXR OBTAINED THIS AM. THROUGHOUT MID DAY, PT HAD EPISODES WHERE SHE WOULD HAVE SOB WITH EXERTION AND BECOME ANXIOUS. HER LUNG SOUNDS MIDDAY WERE COARSE AND WHEEZY THROUGHOUT. ALBUTEROL INHALER ADMINISTERED 2X TODAY. CARDIO LUNA CONSULTED AND EVALUATED PT AT BEDSIDE. PT STARTED ON HEPARIN GTT AND LASIX GTT THIS AFTERNOON. ECHO COMPLETED AT BEDSIDE. PER LUNA, HE PLANS TO TAKE PT FOR ANGIOGRAM TOMORROW, 03/24. LASIX CURRENTLY AT 5 MG/HR; PT HAS DIURESED 2 LITERS TODAY; REMAINS 2 POSITIVE. ADDITIONAL PERIPHERAL IV THAT WAS PLACED THIS AM WAS NO LONGER PATENT THIS AFTERNOON AND WAS REMOVED. ATTEMPTED US GUIDANCE POWERGLIDE IN MICAELA AND WAS UNSUCCESSFUL. PT YELLED AT STAFF AND CLEARLY STATED "NO MORE". TOLERATES SWALLOWING AND TAKING PILLS WITH NO DIFFICULTY. DOES HAVE SOME EXPRESSIVE APHASIA AND IS SLOW TO RESPOND. WILL GIVE BEDSIDE, HANDOFF REPORT TO NOC RN.
--- NOTE | 2020-03-23 19:34 | NUR ---
ASSUMED CARE: PT ALERT AND ORIENTED. IN ST WITH HR IN THE 110S, SBP IN THE 100S. ON 2L NC. SPO2 >90%. HAS CORTES IN PLACE. BT PRESENT X 4 ONLY 1 PIV IN R HAND. HAS LASIX GTT INFUSING AT 5MG/HR AND HEPARIN GTT AT 13U/HR. DOSING WT IS 61KG. CALL LIGHT IN REACH, BED IN LOWEST POSITION
--- NOTE | 2020-03-23 22:19 | NUR ---
CALL PLACED TO DR ACRRASCO RE PTS URINE OUTPUT AND LASIX GTT. PT HAS PUT OUT 2049 BETWEEN 1899 AND 2144. TITRATED LASIX DOWN TO 3MG/HR. FLUID BALANCE IS ABOUT EVEN AT THIS POINT. DR. CARRASCO OK WITH LASIX AT 3MG/HR. ORDERS ALSO RECEIVED FOR AM LABS-BNP AND MAG.
[2020-03-24 05:27] LABS: Alanine Aminotransfer (ALT/SGP 16 U/L (12-78); Albumin, Blood 3.6 g/dL (3.4-5.0); Albumin/Globulin Ratio 1.1 (0.8-1.8); Alk Phos 65 U/L (50-136); Anion Gap 7 mmol/L (6-16); Aspartate Aminotrans (AST/SGOT 21 U/L (12-37); Bilirubin, Total 0.9 mg/dL (0.1-1.0); Blood Urea Nitrogen 4 mg/dL (8-24); Bun/Creatinine Ratio 5.7 (12.0-20.0); CO2, Blood 31 mmol/L (21-32); Calcium, Blood 8.8 mg/dL (8.5-10.1); Chloride, Blood 103 mmol/L (98-108); Globulin, Blood 3.3 g/dL (2.2-4.0); Glomerular Filtration Rate >60 (60-); Glucose, Blood 91 mg/dL (70-99); Magnesium, Blood 1.8 mg/dL (1.6-2.4); Sodium, Blood 141 mmol/L (136-145); Total Protein, Blood 6.9 g/dL (6.4-8.2)
--- NOTE | 2020-03-24 05:55 | NUR ---
SHIFT SUMMARY: PT SLEPT OFF AND ON T/O SHIFT. VSS. LEVOPHED REMAINED OFF. BT PRESENT. 3L OF URINE OFF. URINE IS CLEAR YELLOW. PT HAS 20G IN RH INFUSING WITH LASIX AT 3MG/HR AND HEPARIN AT 14U. PTS K+ LOW THIS AM AT 3.0. NEW ORDER FROM ABUS[facility] FOR 40MEQ PO LIQUID POTASSIUM. WILL PASS REPORT TO ONCOMING SHIFT
--- NOTE | 2020-03-24 08:12 | NUR ---
CARE ASSUMED CARE AND REPORT ASSUMED FROM SERGEI GUAJARDO. PT SITTING UP IN BED. C/O PAION TO RIGHT LEG AND ARM, 10/01. REQUESTING TRAMADOL INSTEAD OF NARCOTICS. ORDER OBTAINED FROM MD FALL FOR TRAMADOL. PT A/O X 3, CALM AND COOPERATIVE. AFEBRILE. NSR, HR 90-100. BP WNL. LUNG SOUNDS CLEAR THIS AM; NO SIGNS OF RESP DISTRESS. 94% ON RA. LASIX GTT INFUSING AT 3 MG/HR. HEPARIN GTT INFUSING AT 14 UNITS/HR. PT SITTING UPRIGHT EATING BREAKFAST. CONTINUES TO REFUSE ADDITIONAL IV INSERTION. R ARM AND R LEG CONTRACTED AND IMMOBILE. WILL CONTINUE TO MONITOR.
--- NOTE | 2020-03-24 10:20 | NUR ---
REASSESSMENT LASIX GTT DISCONTINUED AT 0830 BY MD CARRASCO. HEPARIN GTT CONTINUES TO INFUSE AT 14 UNITS/HR. VSS. PT PCU STATUS AND AWAITING BED TRANSFER. WORKED WITH PHYSICAL THERAPY THIS MORNING. CURRENTLY SITTING UPRIGHT IN CHAIR, TALKING WITH AT BEDSIDE. WILL CONTINUE TO MONITOR.
--- NOTE | 2020-03-24 11:29 | NUR ---
REASSESSMENT PT RECIEVED BEDBATH AND LINEN CHANGE. ASSISTED WITH CARE. TOLERATED SITTING UP IN RECLINER CHAIR FOR 2 HOURS BUT IS NOW BACK IN BED. VSS. NSR, HR 90S. BP WNL. HEPARIN GTT CONTINUES INFUSING. AT BEDSIDE VISITING WITH PT. WILL CONTINUE TO MONITOR.
[2020-03-24 14:10] LABS: Anion Gap 6 mmol/L (6-16); Blood Urea Nitrogen 5 mg/dL (8-24); Bun/Creatinine Ratio 6.8 (12.0-20.0); CO2, Blood 31 mmol/L (21-32); Calcium, Blood 8.6 mg/dL (8.5-10.1); Chloride, Blood 103 mmol/L (98-108); Creatinine, Blood 0.74 mg/dL (0.40-1.00); Glomerular Filtration Rate >60 (60-); Glucose, Blood 105 mg/dL (70-99); Magnesium, Blood 1.8 mg/dL (1.6-2.4); Sodium, Blood 140 mmol/L (136-145)
--- NOTE | 2020-03-24 14:16 | NUR ---
ELEVATED HR 1200 - PT HAD ELEVATED HR 120-170 AT THIS TIME. PT COMPLAINS OF CHEST PAIN WELL. NO DYSPNEA. SPO2 95% ON RA. BP 90S/60S. MD CARRASCO CALLED AND INFORMED. T.O. TO ADMINISTER NS 250 ML BOLUS FOLLOWED BY 100 ML/HR X 4 HOURS, ALONG WITH CHEMISTRY PANEL AND MAGNESIUM LEVEL. 1400 - PT CONTINUES TO HAVE ELEVATED HR 120-170S. BP 103/64. K 3.0. PT COMPLAINS OF CHEST PAIN. MD CARRASCO CALLED AND NOTIFIED. NO NEW ORDERS AT THIS TIME. WILL CONTINUE MONITORING.
[2020-03-24 15:23] LABS: BASOPHILS ABSOLUTE AUTO 0.03 K/mm3 (0.00-0.23); BASOPHILS PERCENT AUTO 0 % (0-2); EOSINOPHILS ABSOLUTE AUTO 0.16 K/mm3 (0.00-0.68); EOSINOPHILS PERCENT AUTO 2 % (0-6); Hematocrit 36.6 % (33.0-51.0); Hemoglobin 12.1 g/dL (11.5-16.0); IMMATURE GRAN ABSOLUTE AUTO 0.02 K/mm3 (0.00-0.10); IMMATURE GRAN PERCENT AUTO 0 % (0-1); LYMPHOCYTES ABSOLUTE AUTO 2.28 K/mm3 (0.84-5.20); LYMPHOCYTES PERCENT AUTO 30 % (21-46); MONOCYTES ABSOLUTE AUTO 0.73 K/mm3 (0.16-1.47); MONOCYTES PERCENT AUTO 10 % (4-13); Mean Corpuscular HGB 29.4 pg (26.0-34.0); Mean Corpuscular HGB Conc 33.1 g/dL (31.5-36.5); Mean Corpuscular Volume 89 fL (80-100); Mean Platelet Volume 10.7 fL (9.1-12.4); NEUTROPHILS ABSOLUTE AUTO 4.32 K/mm3 (1.96-9.15); NEUTROPHILS PERCENT AUTO 57 % (41-73); Platelet Count 225 K/mm3 (150-400); RDW Coefficient Variation 12.5 % (11.7-14.2); RDW Standard Deviation 40.4 fL (35.1-46.3); Red Blood Cell Count 4.11 M/mm3 (3.80-5.20); White Blood Cell Count 7.54 K/mm3 (4.00-11.30)
--- NOTE | 2020-03-24 17:48 | NUR ---
SHIFT SUMMARY PT PCU STATUS. LASIX GTT TURNED OFF THIS MORNING AT 0830. HEPARIN GTT DISCONTINUED AND PT STARTED ON SUBCUTANEOUS HEPARIN. PT WORKED WITH PT AND OT. AT BEDSIDE FOR A FEW HOURS TODAY. SEE NOTE REGARDING HEART RHYTHM AND RATE CHANGE. CHEST PAIN RESOLVED ONCE HR DECREASED TO NORMAL RATE. PT DID RECEIVE DOSE OF METOPROLOL 12.5 MG. HR NOW 90S. PT COMPLAINED OF SEVERE PAIN TO R ARM AND R LEG; MD FALL CALLED AND NORCO ORDERED. PT NOW RESTING COMORTABLY AFTER RECIEVING NORCO 1 TAB. POTASSIUM REPLACEMENT INFUSING. WILL GIVE BEDSIDE, HANDOFF REPORT TO KIARA RN.
--- NOTE | 2020-03-24 19:50 | NUR ---
ASSUMED CARE OF PT AT 1915. REPORT RECEIVED AT BEDSIDE. PT PRESENTS IN BED. HAS HERSELF TURNED TO LEFT SIDE. PT ALERT AND ORIENTED. PLEASANT AND COOPERATIVE WITH CARE AND ASSESSMENT. NO S/S DISTRESS AT THIS TIME. WILL REVIEW CHART AND PLAN OF CARE FOR THIS PT.
--- NOTE | 2020-03-24 23:36 | NUR ---
CALL MADE TO PCU 6 NURSE, CASANDRA MCDONALD. REPORT GIVEN IN SBAR FASHION. ALLOWED FOR QUESTIONS. PT CURRENTLY SLEEPING AND WILL BE TOLD OF TRANSFER WHEN READY FOR MOVE.
--- NOTE | 2020-03-25 06:33 | NUR ---
SUMMARY ASSUMED CARE OF PATIENT AT 0000. PATIENT IS ALERT AND ORIENTED. PATIENT SLEPT MOST THE NIGHT. REPOSITIONED Q2H. AGREE WITH LOUIS GUAJARDOQUAHOGGER OF PATIENT. 02 SATS >90% ON 2L VIA NC. PATIENTS SYSTOLIC BP IN THE 80s, CALLED AND 500ML BOLUS OF NS GIVEN, BP AFTER BOLUS 84/53. CALL LIGHT IN REACH, WILL CONTINUE TO MONITOR.
--- NOTE | 2020-03-25 10:47 | NUR ---
ASSUMED CARE THIS MORNING FROM KIARA RN. PT WAS SLEEPING AT SHIFT CHANGE. PT HAD LOW BP THIS MORNING, DR. FALL HAD ME GIVE A BOLUS OF 250NS WIDE OPEN AND HOLD THE LASIX. CORTES IN PLACE AND DRAINING CLEAR, YELLOW URINE. PT IS DIFFICULT TO UNDERSTAND, BUT IS RESTING WELL AT THIS TIME
--- NOTE | 2020-03-25 10:51 | NUR ---
ANGIO SCHEDULED FOR TOMORROW WITH MELISSA LIMA PT TO BE NPO AT MIDNIGHT
[2020-03-25 12:33] LABS: Anion Gap 5 mmol/L (6-16); Blood Urea Nitrogen 9 mg/dL (8-24); Bun/Creatinine Ratio 12.2 (12.0-20.0); CO2, Blood 28 mmol/L (21-32); Calcium, Blood 8.6 mg/dL (8.5-10.1); Chloride, Blood 110 mmol/L (98-108); Creatinine, Blood 0.74 mg/dL (0.40-1.00); Glomerular Filtration Rate >60 (60-); Glucose, Blood 94 mg/dL (70-99); Potassium, Blood 3.8 mmol/L (3.5-5.5); Sodium, Blood 143 mmol/L (136-145)
[2020-03-25 14:14] LABS: Influenza A, PCR Negative (NEGATIVE); Influenza B, PCR Negative (NEGATIVE); Resp Syncytial Virus, PCR Negative (NEGATIVE); SARS-Cov-2 (COVID-19) PCR, MMC Negative (NEGATIVE)
--- NOTE | 2020-03-25 15:15 | NUR ---
Call to Dr. Nunez regarding the pt's persistently low blood pressures today. No new orders received at this time.
--- NOTE | 2020-03-25 17:05 | NUR ---
TRANSFER TO ICU PT HAS HAD LOW BP ALL DAY, NO MAP ABOVE 60. PT HAS BEEN LETHARGIC AND OCCASSIONALLY CONFUSED, SHE HAS HAD ONLY 80ML OF URINE PUT OUT FROM THE CORTES. DR. FALL HAD 2 NS BOLUSES OF 250ML ADMINISTERED EARLIER IN THE DAY AND HAD NS RUNNING AT 50ML AFTER THE 2ND BOLUS. NO IMPROVEMENT IN BP WAS MADE. MORNING LASIX WAS HELD SINCE BP WAS SO LOW. IT WAS THEN DECIDED TO TRANSFER PT TO ICU 8, AND CONSULT DR. WEBB THE EMU FARMER. PT WAS TRANSFERRED VIA BED ACCOMPANIED BY RN NATHEN AND LEONARD.
--- NOTE | 2020-03-25 17:17 | NUR ---
Assumed care of pt at 1700 upon arrival to ICU from PCU 6. Bedside report received from PCU nurses. Hypotensive. MAP 50-60. group burner machine, Julia, in room to place PICC line. Discussed hypotension with Dr Becerra. Per report from PCU nurse, patient only had 80 mL of urine output this shift. This was reported to Dr Becerra. Discussed with provider that patient is only receiving NS at 50 mL/hr. No new orders at this time. SR per monitor, rate 84. Lungs clear, dim in bases on auscultation. SpO2 96% with 3 LPM NC. Pt alert. Correctly states name and current location. PCU nurse states plan to notify pt's of transfer.
--- NOTE | 2020-03-25 18:00 | NUR ---
PHONE CALL TO INFORM , DI, OF TRANSFER TO ICU. PT WAS REMINDED OF VISITING HOUR RESTRICTIONS.
--- NOTE | 2020-03-25 18:54 | NUR ---
SUMMARY No acute changes since arrival to unit. Blood pressure improved. PICC line to MICAELA. Levophed available, pt not receiving at this time. Pt sitting up in bed eating dinner. Will continue to closely monitor until care handoff and bedside report with oncoming RN.
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
[2020-03-26 04:23] LABS: BASOPHILS ABSOLUTE AUTO 0.02 K/mm3 (0.00-0.23); BASOPHILS PERCENT AUTO 0 % (0-2); EOSINOPHILS PERCENT AUTO 5 % (0-6); Hemoglobin 9.8 g/dL (11.5-16.0); IMMATURE GRAN ABSOLUTE AUTO 0.02 K/mm3 (0.00-0.10); IMMATURE GRAN PERCENT AUTO 0 % (0-1); LYMPHOCYTES ABSOLUTE AUTO 1.18 K/mm3 (0.84-5.20); LYMPHOCYTES PERCENT AUTO 19 % (21-46); MONOCYTES ABSOLUTE AUTO 0.58 K/mm3 (0.16-1.47); MONOCYTES PERCENT AUTO 9 % (4-13); Mean Corpuscular HGB Conc 32.7 g/dL (31.5-36.5); Mean Corpuscular Volume 92 fL (80-100); Mean Platelet Volume 10.8 fL (9.1-12.4); NEUTROPHILS ABSOLUTE AUTO 4.28 K/mm3 (1.96-9.15); NEUTROPHILS PERCENT AUTO 67 % (41-73); Platelet Count 168 K/mm3 (150-400); RDW Coefficient Variation 12.7 % (11.7-14.2); RDW Standard Deviation 42.6 fL (35.1-46.3); Red Blood Cell Count 3.27 M/mm3 (3.80-5.20); White Blood Cell Count 6.38 K/mm3 (4.00-11.30)
--- NOTE | 2020-03-26 04:27 | NUR ---
UPDATE PT IS AWAKE A/O TO LOCATION, EVENT, AND FOLLOWING DIRECTIONS. COOPERATIVE AND CALM. STATES PAIN 9/10 ON RIGHT SIDE, TREATED PER EMAR. STATES HER COMES TO VISIT HER EVERYDAY AND THAT SHE HAS MANY GRANDKIDS. DISCUSSED WITH PATIENT THE IMPORTANCE OF NOT LEANING TO THE RIGHT TO SLEEP ALL NIGHT AND WAS ABLE TO PLACE A PILLOW ON RIGHT SIDE. ON 2 L VIA NC, SPO2 > 95%. LEVOPHED ON STANDBY, MAP > 65 AND NSR.
[2020-03-26 04:50] LABS: Anion Gap 5 mmol/L (6-16); Blood Urea Nitrogen 12 mg/dL (8-24); Bun/Creatinine Ratio 15.5 (12.0-20.0); CO2, Blood 27 mmol/L (21-32); Calcium, Blood 8.2 mg/dL (8.5-10.1); Chloride, Blood 113 mmol/L (98-108); Creatinine, Blood 0.77 mg/dL (0.40-1.00); Glomerular Filtration Rate >60 (60-); Glucose, Blood 93 mg/dL (70-99); Potassium, Blood 3.9 mmol/L (3.5-5.5); Sodium, Blood 145 mmol/L (136-145); Thyroid Stimulating Hormone 0.944 uIU/mL (0.360-4.800)
--- NOTE | 2020-03-26 05:41 | NUR ---
SHIFT SUMMARY PT HAD INCREASED A/O T/O SHIFT, NOW ABLE TO STATE LOCATION, TIME, EVENT, AND DISCUSS FAMILY COMING IN TO VISIT HER. NS INFUSING AT 50 ML/HR VIA PICC (MICAELA). PT REMAINS ON 2 L VIA NC, SPO2 > 95%. LEVOPHED HAS REMAINED OFF T/O THE SHIFT, MAP > 65, NSR, AND HR 70-80'S. PT STATES PAIN IS STILL PRESENT ON RIGHT SIDE BUT "HAS IMPROVED" FROM PRIOR TO MEDICATION, SEE EMAR. CORTES DRAINING TO GRAVITY, 250 MLS OF DARK CLOUDY YELLOW URINE TOTAL T/O SHIFT, INPUT OF 679. SEE SHIFT ASSESSMENTS. WILL REPORT TO ONCOMING SHIFT.
--- NOTE | 2020-03-26 08:00 | NUR ---
Assumed care of pt at 0700. Bedside report received from Bess GUAJARDO. Pt A&O x 3. Answers questions, Has expressive aphasia but still able to communicate needs. Initially on 2 LPM NC, SpO2 97%. Titrated to room air. SpO2 94%. Will continue to closely monitor. SR per monitor. BP stable. Bed in lowest position. Call light in reach. Pt denies need at this time.
--- NOTE | 2020-03-26 09:00 | NUR ---
Dr Hattie Nunez in to see patient. Notified provider that over night, urine changed from clear yellow, to cloudy with a lot of sediment. Provider states plan to continue with PO cipro and IV zosyn.
--- NOTE | 2020-03-26 12:41 | NUR ---
Dr Razo in to see patient. Discussed BP with provider. Orders given to stop IV fluids.
--- NOTE | 2020-03-26 18:45 | NUR ---
SUMMARY Pt remains off levophed. Pt A&O x 4. Pleasant and cooperative with care. Answers questions, follows commands, communicates needs. Pt on 2 LPM NC. Attempted to titrate off but after a few hours, pt ultimately unable to maintain SpO2 90% or greater. SR-ST per monitor. BP stable. Excellent urine output this shift. Pt had one BM in bedpan. Plan for angiogram tomorrow. Will continue to closely monitor pt until care handoff and bedside report with oncoming RN.
--- NOTE | 2020-03-26 21:25 | NUR ---
CARE ASSUMED 1900 PT IS A/O TO LOCATION, TIME, AND FAMILY. STATES BEING IN PAIN (9/10) ON THE RIGHT SIDE, TREATED PER EMAR. OCCASIONALLY HARD TO UNDERSTAND DUE TO DYSARTHRIA, USES PAD TO WRITE WORDS TO EXPLAIN. AGREED TO BE BOOSTED IN BED AND HAVE PARTIAL LINEN CHANGES BUT DOES NOT WANT PILLOW UNDER EXTREMS. REFUSED TO HAVE RIGHT LEG STRETCHED OUT, PREFERS KEEPING IT BENT. RIGHT HAND CONTRACTURE PRESENT. VSS, IN SINUS TACHY (100-110'S), ON 2 L VIA NC, SPO2 > 95%, SBP 90-107'S, MAP > 65. TKO FLUIDS INFUSING VIA PICC TO MICAELA.
[2020-03-27 04:42] LABS: BASOPHILS ABSOLUTE AUTO 0.01 K/mm3 (0.00-0.23); BASOPHILS PERCENT AUTO 0 % (0-2); EOSINOPHILS ABSOLUTE AUTO 0.24 K/mm3 (0.00-0.68); EOSINOPHILS PERCENT AUTO 4 % (0-6); Hematocrit 30.9 % (33.0-51.0); IMMATURE GRAN ABSOLUTE AUTO 0.01 K/mm3 (0.00-0.10); IMMATURE GRAN PERCENT AUTO 0 % (0-1); LYMPHOCYTES ABSOLUTE AUTO 1.02 K/mm3 (0.84-5.20); LYMPHOCYTES PERCENT AUTO 17 % (21-46); MONOCYTES ABSOLUTE AUTO 0.52 K/mm3 (0.16-1.47); MONOCYTES PERCENT AUTO 9 % (4-13); Mean Corpuscular HGB 29.4 pg (26.0-34.0); Mean Corpuscular HGB Conc 32.4 g/dL (31.5-36.5); Mean Corpuscular Volume 91 fL (80-100); Mean Platelet Volume 10.5 fL (9.1-12.4); NEUTROPHILS ABSOLUTE AUTO 4.29 K/mm3 (1.96-9.15); NEUTROPHILS PERCENT AUTO 71 % (41-73); Platelet Count 194 K/mm3 (150-400); RDW Coefficient Variation 12.6 % (11.7-14.2); RDW Standard Deviation 41.4 fL (35.1-46.3); White Blood Cell Count 6.09 K/mm3 (4.00-11.30)
[2020-03-27 05:01] LABS: Anion Gap 6 mmol/L (6-16); Blood Urea Nitrogen 10 mg/dL (8-24); Bun/Creatinine Ratio 13.2 (12.0-20.0); CO2, Blood 26 mmol/L (21-32); Calcium, Blood 8.4 mg/dL (8.5-10.1); Chloride, Blood 111 mmol/L (98-108); Creatinine, Blood 0.76 mg/dL (0.40-1.00); Glomerular Filtration Rate >60 (60-); Glucose, Blood 92 mg/dL (70-99); Phosphorus, Blood 4.1 mg/dL (2.5-4.9); Potassium, Blood 3.7 mmol/L (3.5-5.5); Sodium, Blood 143 mmol/L (136-145)
--- NOTE | 2020-03-27 05:29 | NUR ---
SHIFT SUMMARY PT SLEPT T/O THE NIGHT AND AWAKE NOW, WATCHING TV. SHE IS MORE A/O COMPARED TO BEGINNING OF SHIFT, PT STATES SHE HAD A SEIZURE AT HOME, IS IN [facility], AND IS AWARE OF THE YEAR. PT ALSO STATES SHE HAD A SEIZURE ONCE BEFORE WHEN SHE WAS 12 YEARS OLD BUT DID NOT TAKE MEDICATION FOR IT. EDUCATED PT ON IMPORTANCE OF FOLLOWING UP WITH HER NEUROLOGIST AND TAKING HER KEPPRA AT HOME. PT ALSO STATES SHE WAS OUT OF HER KEPPRA AT HOME BECAUSE SHE DOES NOT HAVE A NEUROLOGIST, WILL RELAY MESSAGE ON DAYSHIFT. VSS T/O SHIFT, MAP > 60. NSR, HR 68-80'S, REMAINS ON 2 L VIA NC, SPO2 >90%. NS 10 ML/HR TKO INFUSING VIA PICC IN MICAELA. CORTES IN PLACE, DRAINING TO GRAVITY, 350 MLS OF CLEAR YELLOW URINE FOR THIS SHIFT. WILL REPORT TO ONCOMING SHIFT.
--- NOTE | 2020-03-27 08:00 | NUR ---
ASSUMED CARE BEDSIDE REPORT RECIEVED. PT IS AWAKE, ALERT, AND ORIENTED. PT WITH HX OF CVA AND EXPRESSIVE APHASIA NOTED. PT IS ABLE TO MAKE NEEDS KNOWN. RIGHT SIDE DEFICET NOTED WITH CONTRACTURES TO RIGHT UPPER EXTREMITY. PT DENIES PAIN OR DISCOMFORT AT THIS TIME. VITAL SIGNS STABLE. PT ON 2L O2 NC. CORTES IN PLACE DRAINING YELLOW URINE OUTPUT. 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 WILL CONTINUE TO MONITOR.
--- NOTE | 2020-03-27 14:45 | NUR ---
PT TO APPLIANCE SERVICE REPRESENTATIVE AT THIS TIME.
--- NOTE | 2020-03-27 16:56 | NUR ---
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 PT IS RESTING QUIETLY. PT DROWSEY, BUT AROUSES TO VOICE. NON REBREATHER IN PLACE AT 6L. VITAL SIGNS STABLE. TR BAND IN PLACE TO RIGHT ULNAR ACCESS SITE. SITE IS SOFT, NONTENDER, NO HEMATOMA OR OOZING NOTED. ARM BOARD IN PLACE. PT SPOUSE AT BEDSIDE. WILL CONTINUE TO MONITOR.
--- NOTE | 2020-03-27 17:56 | NUR ---
SHIFT SUMMARY NO ACUTE CHANGES THIS SHIFT. PT HAS REMAINED ALERT AND ORIENTED THROUGHOUT THE SHIFT. PT TAKEN TO BENCH BORING MACHINE OPERATOR THIS AFTERNOON. PT REMAINS DROWSEY SINCE RETURN TO ROOM, BUT IS AROUSEABLE BY VOICE. VITAL SIGNS HAVE REMAINED STABLE. PT ON 4L O2 NC AT THIS TIME. PT ON RA PRIOR TO BENCH BORING MACHINE OPERATOR. PICC TO [facility]ICAELA C/D/I, NS INFUSING TKO. CORTES REMAINS IN PLACE WITH YELLOW URINE OUTPUT NOTED. PT WITH RIGHT SIDED DEFICIT UNCHANGED. PT SPOUSE AT BEDSIDE THIS AFTERNOON. PER DR DEL ROSARIO, PT OK FOR MEDICAL STATUS AFTER TR BAND IS REMOVED AND ACCESS SITE IS STABLE. WILL CONTINUE TO MONITOR AND REPORT OFF TO ONCOMING RN.
--- NOTE | 2020-03-27 21:00 | NUR ---
ASSUMPTION OF CARE PT RESTING IN BED, VERY DIFFICULT TO AROUSE BUT DOES AROUSE TO VERBAL STIMULI, ANSWERS SOME YES/NO QUESTIONS AND FOLLOW COMMANDS THEN FALLS BACK TO SLEEP. PT ON 4L PER NC TO MAINTAIN O2> 90%, MONITOR SHOWS SINUS RHYTHM, SBP 90'S-110 WITH MAPS 70'S. R ULNAR SITE STABLE WITH TR BAND IN PLACE, AIR CONTINUES TO BE RELEASED FROM TR BAND. CORTES IN PLACE WITH LITTLE URINE OUTPUT. PT WITH R SIDE HEMIPARALYSIS, Hx CVA WITH R SIDE DEFICITS. CALL LIGHT WITHIN REACH.
--- NOTE | 2020-03-28 01:22 | NUR ---
CALL PLACED TO DR ODOM REGARDING LOW BP, SBP 70'S-90'S MAPS 50'S-60'S. ORDER FOR 500ml FLUID BOLUS THEN 100ml/hr x500ml.
[2020-03-28 05:08] LABS: BASOPHILS ABSOLUTE AUTO 0.01 K/mm3 (0.00-0.23); BASOPHILS PERCENT AUTO 0 % (0-2); EOSINOPHILS ABSOLUTE AUTO 0.01 K/mm3 (0.00-0.68); EOSINOPHILS PERCENT AUTO 0 % (0-6); IMMATURE GRAN ABSOLUTE AUTO 0.02 K/mm3 (0.00-0.10); IMMATURE GRAN PERCENT AUTO 0 % (0-1); LYMPHOCYTES ABSOLUTE AUTO 0.92 K/mm3 (0.84-5.20); LYMPHOCYTES PERCENT AUTO 17 % (21-46); MONOCYTES ABSOLUTE AUTO 0.42 K/mm3 (0.16-1.47); MONOCYTES PERCENT AUTO 8 % (4-13); Mean Corpuscular HGB 29.8 pg (26.0-34.0); Mean Corpuscular HGB Conc 33.3 g/dL (31.5-36.5); Mean Corpuscular Volume 89 fL (80-100); Mean Platelet Volume 10.5 fL (9.1-12.4); NEUTROPHILS ABSOLUTE AUTO 4.19 K/mm3 (1.96-9.15); NEUTROPHILS PERCENT AUTO 75 % (41-73); Platelet Count 207 K/mm3 (150-400); RDW Coefficient Variation 12.3 % (11.7-14.2); RDW Standard Deviation 40.2 fL (35.1-46.3); Red Blood Cell Count 3.36 M/mm3 (3.80-5.20); White Blood Cell Count 5.57 K/mm3 (4.00-11.30)
[2020-03-28 05:24] LABS: Anion Gap 6 mmol/L (6-16); Blood Urea Nitrogen 9 mg/dL (8-24); Bun/Creatinine Ratio 15.3 (12.0-20.0); CO2, Blood 25 mmol/L (21-32); Calcium, Blood 8.2 mg/dL (8.5-10.1); Chloride, Blood 113 mmol/L (98-108); Creatinine, Blood 0.59 mg/dL (0.40-1.00); Glomerular Filtration Rate >60 (60-); Glucose, Blood 88 mg/dL (70-99); Potassium, Blood 3.5 mmol/L (3.5-5.5); Sodium, Blood 144 mmol/L (136-145)
--- NOTE | 2020-03-28 06:38 | NUR ---
SHIFT SUMMARY PT REMAINS VERY DIFFIFULT TO AROUSE FOR MOST OF SHIFT, WITH NURSE ROUNDING THIS AM @ APPROX 0430 PT WAS AWAKE AND ALERT IN BED, ORIENTED TO SELF, LOCATION, EVENT AND FOLLOWING DIRECTIONS. BLOOD PRESSURE IMPROVED AFTER 500ml NS BOLUS WITH SBP 90'S-110 AND MAPS 60'S-70'S. CORTES REMAINS IN PLACE WITH 400ml OUT THIS SHIFT. R SIDE HEMIPARESIS REMAINS BUT PT ABLE TO MAKE SMALL REPOSITIONS INDEPENDENTLY IN BED. CALL LIGHT REMAINS WITHIN REACH. PHONE WITH IN REACH, CALL FROM PTS SPOUSE TRANSFERED TO ROOM THIS AM, PT USES PHONE INDEPENDENTLY.
--- NOTE | 2020-03-28 07:52 | NUR ---
ASSUMED CARE BEDSIDE REPORT RECIEVED. PT IS AWAKE, ALERT, AND ORIENTED. PT WITH EXPRESSIVE APHASIA, BUT PT IS ABLE TO MAKE NEEDS KNOWN. PT WITH RIGHT SIDED DEFICIT AND CONTRACTURES NOTED TO RIGHT UPPER EXTREMITY. VITAL SIGNS STABLE, PT ON ROOM AIR. PICC TO MICAELA C/D/I WITH NS INFUSING TKO. CORTES IN PLACE WITH YELLOW OUTPUT NOTED. PT WITH ARM BOARD IN PLACE TO RIGHT WRIST. RIGHT ULNAR ACCESS SITE IS SOFT, NONTENDER, NO HEMATOMA NOTED. WILL CONTINUE TO MONITOR.
--- NOTE | 2020-03-28 17:22 | NUR ---
SHIFT SUMMARY NO ACUTE CHANGES THIS SHIFT. PT HAS DONE WELL THROUGHOUT THE DAY. PT REMAINS ALERT AND ORIENTED. PT ABLE TO COMMUNICATE NEEDS. RIGHT SIDED DEFICIT UNCHANGED. VITAL SIGNS STABLE, PT ON ROOM AIR. RIGHT ULNAR ACCESS SITE UNCHANGED, ARMBOARD REMAINS IN PLACE. PICC TO MICAELA IN PLACE WITH NS INFUSING TKO. CORTES IN PLACE WITH CLEAR YELLOW URINE OUTPUT NOTED. ATTENDS IN PLACE, PT WITH MULTIPLE BM'S THIS SHIFT. PT SPOUSE AT BEDSIDE THIS AFTERNOON. PLAN FOR POSSIBLE DISCHARGE HOME TOMORROW. PT AND SPOUSE AWARE. WILL CONTINUE TO MONITOR AND REPORT OFF TO ONCOMING RN.
--- NOTE | 2020-03-28 21:47 | NUR ---
ASSUMPTION OF CARE PT RESTING BED, AROUSES TO VERBAL STIMULI, PT HAS DIFFICULTY EXPRESSING NEEDS, Hx CVA WITH R SIDE DEFEICITS AND EXPRESSIVE APHASIA. VSS, PT ABLE TO MAKE SMALL REPOSITIONS IN BED. PT TOLERATING PO INTAKE, SWALLOWS PILLS WHOLE WITH WATER. WATER ON BEDSIDE TABLE WITHIN REACH. CALL LIGHT WITHIN REACH AND ROOM TELEPHONE AT BEDSIDE. PT DENIES ANY OTHER NEEDS AT THIS TIME.
--- NOTE | 2020-03-29 06:35 | NUR ---
SHIFT SUMMARY PT RESTED WELL T/O NIGHT, VSS. PT FRUSTRATED AT TIMES WITH DIFFICULTY COMMUNICATING BUT IS ABLE TO MAKE NEEDS KNOWN. CALL LIGHT WITHIN REACH, TELEPHONE WITHIN REACH, PT USING APPROPRIATELY.
--- NOTE | 2020-03-29 07:30 | NUR ---
ASSUMED CARE BEDSIDE REPORT RECIEVE. PT IS RESTING QUIETLY UPON ENTERING ROOM. PT AWAKENS EASILY TO VERBAL STIMULI. PT IS ALERT AND ORIENTED. PT WITH EXPRESSIVE APHASIA. PT WITH RIGHT SIDED DEFICIT. PT ABLE TO MAKE NEEDS KNOW. VITAL SIGNS STABLE, PT ON ROOM AIR. PICC TO MICAELA C/D/I, NS INFUSING TKO. CORTES IN PLACE WITH YELLOW OUTPUT NOTED. ATTENDS IN PLACE. ARM BOARD TO RIGHT WRIST IN PLACE. PT DENIES PAIN OR DISCOMFORT. WILL CONTINUE TO MONITOR.
--- NOTE | 2020-03-29 11:14 | NUR ---
DR LORENZO VENTURA HERE TO SEE PT. PLANS TO DISCHARGE HOME TODAY. PT AND PT SPOUSE DI AGREEABLE TO DISCHARGE AND FEEL PREPARED TO TAKE CARE OF PT AT HOME. AWAITING DC ORDERS AT THIS TIME.
[2020-03-29] MEDS ORDERED: METO25ER PO (13:31)
[2020-03-29] MEDS ORDERED: Lisinopril2.5 MG PO (13:31)
[2020-03-29] MEDS ORDERED: ASPI325 PO (13:32)
[2020-03-29] MEDS ORDERED: AMOCLA500 PO (13:33)
[2020-03-29] MEDS ORDERED: LEVE500 PO (13:33)
--- NOTE | 2020-03-29 14:36 | NUR ---
DISCHARGE HOME ALL NEW MEDICATIONS NEEDED FAXED TO [facility]. ALL DISCHARGE INSTRUCTIONS, EDUCATION, AND NEW MEDICATIONS REVIEWED WITH PT AND PT SPOUSE DI. PT SPOUSE VERBALIZED UNDERSTANDING. PT TAKEN TO CAR VIA WHEELCHAIR. ALL PT BELONGINGS SENT WITH PT.
== END 2020-03-29 14:29 | disposition home or self-care (01) | DRG 100 ==
LOC: ER 05:14 → ICUE 08:12 → PCU 08:12 → ICUW 08:12 → PCU 03-25 → ICUE 03-25 16:43
PROVIDERS: Emergency Medicine; Family Medicine; Internal Medicine Critical Care Medicine; Internal Medicine Endocrinology, Diabetes & Metabolism; Internal Medicine Interventional Cardiology; Pharmacist; ADMIT Student in an Organized Health Care Education/Training Program
PROC: 02HV33Z Insertion of Infusion Device into Superior Vena Cava, Percutaneous Approach (ICD-10-PCS; principal; 2020-03-25)
PROC: 4A023N8 Measurement of Cardiac Sampling and Pressure, Bilateral, Percutaneous Approach (ICD-10-PCS; 2020-03-27)
PROC: B2111ZZ Fluoroscopy of Multiple Coronary Arteries using Low Osmolar Contrast (ICD-10-PCS; 2020-03-27)
DX: G40.909 Epilepsy, unspecified, not intractable, without status epilepticus (principal); I50.21 Acute systolic (congestive) heart failure; J96.01 Acute respiratory failure with hypoxia; I21.4 Non-ST elevation (NSTEMI) myocardial infarction; I69.351 Hemiplegia and hemiparesis following cerebral infarction affecting right dominant side; N39.0 Urinary tract infection, site not specified; I51.81 Takotsubo syndrome; Z87.891 Personal history of nicotine dependence; I95.89 Other hypotension; I69.321 Dysphasia following cerebral infarction; I48.91 Unspecified atrial fibrillation; I95.9 Hypotension, unspecified; I11.0 Hypertensive heart disease with heart failure
CPT/HCPCS: 0241U; 36415; 36569; 51702; 70450; 71045; 76937; 80048; 80053; 80177; 81001; 81025; 82330; 82533; 82550; 83735; 84100; 84443; 84484; 85025; 85347; 85610; 85730; 87077; 87086; 87186; 93005; 93010; 93458; 94640; 94760; 96365-59; 97162; 97166; 97530; 99285-25; A9270-GY; C1751; C1769; C1894; C8929; G0480; J0696; J1200; J1644; J1650; J1720; J1885; J1940; J1953; J2543; J2704; J3480; J7030; J7040; J7050; J7060; J7120; Q9957; Q9967

== ENCOUNTER 2020-07-09 14:38 | Inpatient (IN) | payer OTHER ==
[~2020-07-09] VITALS: Ht 162.6 cm; Wt 54.3 kg
[~2020-07-09 14:38] MED LIST changes: +AMOCLA500 PO; +ASPI325EC PO; +DOCU100 PO; +Lisinopril2.5 MG PO; +METO25 PO; +METO25ER PO
[2020-07-09 15:19] LABS: Source, Urine Catheter
[2020-07-09 15:20] LABS: BASOPHILS ABSOLUTE AUTO 0.02 K/mm3 (0.00-0.23); BASOPHILS PERCENT AUTO 0 % (0-2); EOSINOPHILS ABSOLUTE AUTO 0.03 K/mm3 (0.00-0.68); EOSINOPHILS PERCENT AUTO 0 % (0-6); Hematocrit 38.3 % (33.0-51.0); Hemoglobin 13.1 g/dL (11.5-16.0); IMMATURE GRAN ABSOLUTE AUTO 0.08 K/mm3 (0.00-0.10); IMMATURE GRAN PERCENT AUTO 1 % (0-1); LYMPHOCYTES ABSOLUTE AUTO 0.69 K/mm3 (0.84-5.20); LYMPHOCYTES PERCENT AUTO 5 % (21-46); MONOCYTES ABSOLUTE AUTO 0.27 K/mm3 (0.16-1.47); MONOCYTES PERCENT AUTO 2 % (4-13); Mean Corpuscular HGB 29.8 pg (26.0-34.0); Mean Corpuscular HGB Conc 34.2 g/dL (31.5-36.5); Mean Corpuscular Volume 87 fL (80-100); Mean Platelet Volume 11.1 fL (9.1-12.4); NEUTROPHILS ABSOLUTE AUTO 11.61 K/mm3 (1.96-9.15); NEUTROPHILS PERCENT AUTO 92 % (41-73); Platelet Count 145 K/mm3 (150-400); RDW Coefficient Variation 12.9 % (11.7-14.2); RDW Standard Deviation 40.7 fL (35.1-46.3)
[2020-07-09 15:25] LABS: Alanine Aminotransfer (ALT/SGP 17 U/L (12-78); Albumin, Blood 3.2 g/dL (3.4-5.0); Albumin/Globulin Ratio 0.9 (0.8-1.8); Alk Phos 86 U/L (50-136); Anion Gap 8 mmol/L (6-16); Aspartate Aminotrans (AST/SGOT 21 U/L (12-37); Bilirubin, Total 0.4 mg/dL (0.1-1.0); Blood Urea Nitrogen 12 mg/dL (8-24); Bun/Creatinine Ratio 16.4 (12.0-20.0); CO2, Blood 26 mmol/L (21-32); Calcium, Blood 8.6 mg/dL (8.5-10.1); Chloride, Blood 107 mmol/L (98-108); Creatinine, Blood 0.73 mg/dL (0.40-1.00); Globulin, Blood 3.5 g/dL (2.2-4.0); Glomerular Filtration Rate >60 (60-); Glucose, Blood 147 mg/dL (70-99); Potassium, Blood 3.9 mmol/L (3.5-5.5); Sodium, Blood 141 mmol/L (136-145); Total Protein, Blood 6.7 g/dL (6.4-8.2)
[2020-07-09 15:26] LABS: Appearance, Urine Clear (Clear); Bilirubin, Urine Neg (Neg); Blood, Urine 4+ (Neg); Color, Urine Amber (P-Yellow); Glucose Qualitative, Urine Neg (Neg); Ketones, Urine Neg (Neg); Leukocyte Esterase, Urine 1+ (Neg); Nitrite, Urine Pos (Neg); Protein, Urine 2+ (Neg); Specific Gravity, Urine 1.015 (1.003-1.022); Urobilinogen, Urine NORM (Normal)
[2020-07-09 15:32] LABS: Bacteria Many /hpf; Squamous Epithelial Cells Few /hpf (Few)
[2020-07-09 16:48] LABS: Influenza A, PCR NEGATIVE (NEGATIVE); Influenza B, PCR NEGATIVE (NEGATIVE); Resp Syncytial Virus, PCR NEGATIVE (NEGATIVE); SARS-Cov-2 (COVID-19) PCR, MMC NEGATIVE (NEGATIVE)
[2020-07-09] MEDS ORDERED: Norco 5-325 Ta1 EACH PO (17:39)
--- NOTE | 2020-07-10 04:26 | NUR ---
SHIFT SUMMARY PT ARRIVED TO THE UNIT AROUND 1999. BP 98/61, BP REMAINED HYPOTENSIVE FOR SHORT TIME, BEGAN TO INCREASE AFTER FOURTH BOLUS OF LR. BP 123/69 BY AM. HR LOW 100'S T/O THE SHIFT. O2 SATS >90% ON ROOM AIR. TEMP <100F. PT WAS LETHARGIC AND RESPONSIVE ONLY TO PAINFUL SITMULI. PT WAS UNABLE TO FOLLOW DIRECTIONS AND WOULD NOT OPEN HER EYES TO ANY STIMULI. GCS OF 9. LIMBS WERE EITHER FLACCID OR RIGID. PT BECAME MORE RESTLESS AND MOVED ABOUT IN BED MORE BY AM. PT WAS ABLE TO OPEN EYES AND WAS RESPONSIVE TO VERBAL STIMULI. PT DID NOT HAVE ANY WITNESSED SEIZURES. RESPONSIVENESS HAS IMPROVED SINCE ADMISSION.
[2020-07-10 04:39] LABS: BASOPHILS ABSOLUTE AUTO 0.03 K/mm3 (0.00-0.23); BASOPHILS PERCENT AUTO 0 % (0-2); EOSINOPHILS PERCENT AUTO 0 % (0-6); Hemoglobin 10.3 g/dL (11.5-16.0); IMMATURE GRAN PERCENT AUTO 1 % (0-1); LYMPHOCYTES ABSOLUTE AUTO 1.09 K/mm3 (0.84-5.20); LYMPHOCYTES PERCENT AUTO 7 % (21-46); MONOCYTES ABSOLUTE AUTO 1.17 K/mm3 (0.16-1.47); MONOCYTES PERCENT AUTO 8 % (4-13); Mean Corpuscular HGB 29.7 pg (26.0-34.0); Mean Corpuscular HGB Conc 34.3 g/dL (31.5-36.5); Mean Corpuscular Volume 87 fL (80-100); Mean Platelet Volume 10.8 fL (9.1-12.4); NEUTROPHILS ABSOLUTE AUTO 12.74 K/mm3 (1.96-9.15); NEUTROPHILS PERCENT AUTO 84 % (41-73); Platelet Count 103 K/mm3 (150-400); RDW Coefficient Variation 13.1 % (11.7-14.2); RDW Standard Deviation 41.2 fL (35.1-46.3); Red Blood Cell Count 3.47 M/mm3 (3.80-5.20); White Blood Cell Count 15.13 K/mm3 (4.00-11.30)
[2020-07-10 05:12] LABS: Anion Gap 7 mmol/L (6-16); Blood Urea Nitrogen 6 mg/dL (8-24); Bun/Creatinine Ratio 11.4 (12.0-20.0); CO2, Blood 27 mmol/L (21-32); Calcium, Blood 8.4 mg/dL (8.5-10.1); Chloride, Blood 113 mmol/L (98-108); Creatinine, Blood 0.53 mg/dL (0.40-1.00); Glomerular Filtration Rate >60 (60-); Glucose, Blood 93 mg/dL (70-99); Potassium, Blood 2.9 mmol/L (3.5-5.5); Sodium, Blood 147 mmol/L (136-145)
--- NOTE | 2020-07-10 12:47 | NUR ---
ADMIT: 07/09/20 DISCHARGE: DX: UTI, Sepsis CC: [email or web address] ADMIT: 03/22/20 DISCHARGE: DX: SEIZURE, HYPOTENSION VICTORINO CALL: RESIDENCE: Home CAREGIVER: CAREGIVER: DI FARIAS, SPOUSE / PARTNER, DX: CVA, HTN, acute hypoxemic resp. failure, see list DME: none CCM: Referral- 03/2020 HOME HEALTH: [facility]- 2019 SUMMARY: Admit: 07/09/20 07/10/20- per chart review with Dr. Roblero, pt is currently septic. She will order OT & PT services. No plan to d/c pt today or over the weekend. -unruly
--- NOTE | 2020-07-10 17:58 | NUR ---
SHIFT SUMMARY PT MORE RESPONSIVE AT THE END OF SHIFT. PER , SPEECH IS INCOMPREHENSIBLE AT BASELINE DUE TO PREVIOUS STROKE. PT STATES SHE "SEEMS MORE LIKE HERSELF" THIS EVENING. VS STABLE. O2 SATS REMAIN ABOVE 90% ON RA. HR NSR. PT COMPLAINED OF PAIN EARLY IN THE SHIFT AND WAS RESTLESS IN THE BED. PT MEDICATED AND REPOSITIONED NEEDED TO RELIEVE PAIN. PT HAS BEEN INCONTINENT OF BLADDER AND BOWEL THIS SHIFT. ATTENDS IN PLACE. PG TO LEFT UPPER ARM SL. WILL CONTINUE TO MONITOR AND REPORT TO ONCOMING RN. BED ALARM ON FOR SAFETY.
--- NOTE | 2020-07-11 04:49 | NUR ---
SHIFT SUMMARY PT WAS MORE ALERT AND RESPONSIVE THAN PREVIOUS NOC SHIFT. COMMUNICATION WITH PT WAS DIFFICULT, PT ONLY ABLE TO SAY YES AND NO AND NOT ABLE TO COMMUNICATE NEEDS APPROPRIATELY. R SIDED WEAKNESS FROM PREVIOUS CVA. THIS AM PT BECAME VERY ANXIOUS, CRYING AND YELLING OUT. PT WAS SHOWING TO HAVE PAIN IN R LEG/HIP, PRN MEDICATION WAS GIVEN AND PT CALMED. VITALS WERE STABLE. O2 SATS >94% ON ROOM AIR. PT HAD AN UNEVENTFUL NIGHT.
--- NOTE | 2020-07-11 14:53 | NUR ---
DR PEREZ IN TO SEE PT AND SPOUSE. PLAN TO DC HOME.
[2020-07-11] MEDS ORDERED: CIPR500 PO (15:35)
--- NOTE | 2020-07-11 16:46 | NUR ---
DISCHARGED REVIEWED DC INSTRUCTIONS W/PT AND SPOUSE. DC'D IV, CATHETER INTACT. PT LEFT UNIT IN OWN WC W/POSSESSIONS AND DC INSTRUCTIONS ACCOMPANIED BY SPOUSE.
== END 2020-07-11 16:40 | disposition home or self-care (01) | DRG 872 ==
LOC: ER 14:38 → PCU 18:45
PROVIDERS: Nurse Practitioner Acute Care; Student in an Organized Health Care Education/Training Program; ADMIT Internal Medicine
DX: A41.9 Sepsis, unspecified organism (principal); N39.0 Urinary tract infection, site not specified; I69.951 Hemiplegia and hemiparesis following unspecified cerebrovascular disease affecting right dominant side; R65.20 Severe sepsis without septic shock; I10 Essential (primary) hypertension; F32.9 Major depressive disorder, single episode, unspecified; G89.29 Other chronic pain; Z88.5 Allergy status to narcotic agent; Z88.2 Allergy status to sulfonamides; Z88.8 Allergy status to other drugs, medicaments and biological substances; Z87.891 Personal history of nicotine dependence; Z79.82 Long term (current) use of aspirin
CPT/HCPCS: 0241U; 36415; 71045; 80048; 80053; 81001; 83605; 83690; 85025; 87040; 87077; 87086; 87186; 93005; 93010; 96365; 96375; 99285-25; A9270; C1751; J0696; J0744; J1650; J1953; J3010; J3480; J7120

== ENCOUNTER 2020-07-17 08:46 | Emergency (ER) | payer OTHER ==
[~2020-07-17] VITALS: Ht 160 cm; Wt 68.0 kg
[~2020-07-17 08:46] MED LIST changes: +CIPR500 PO
[2020-07-17] MEDS ORDERED: HYDR1TAB94 PO (10:27)
== END 2020-07-17 10:40 | disposition home or self-care (01) ==
LOC: ER 08:46
DX: S20.211A Contusion of right front wall of thorax, initial encounter (principal); Z88.2 Allergy status to sulfonamides; Z88.5 Allergy status to narcotic agent; Z88.8 Allergy status to other drugs, medicaments and biological substances; Z79.82 Long term (current) use of aspirin; Z79.899 Other long term (current) drug therapy; W18.30XA Fall on same level, unspecified, initial encounter
CPT/HCPCS: 71101; 73080; 96372; 99283-25; A9270; J3010

== ENCOUNTER 2020-08-02 02:37 | Emergency (ER) | payer OTHER ==
[~2020-08-02] VITALS: Ht 167.6 cm; Wt 56.7 kg
[~2020-08-02 02:37] MED LIST changes: +HYDR1TAB94 PO
[2020-08-02 04:07] LABS: BASOPHILS ABSOLUTE AUTO 0.02 K/mm3 (0.00-0.23); BASOPHILS PERCENT AUTO 0 % (0-2); EOSINOPHILS ABSOLUTE AUTO 0.21 K/mm3 (0.00-0.68); EOSINOPHILS PERCENT AUTO 3 % (0-6); Hematocrit 37.2 % (33.0-51.0); IMMATURE GRAN ABSOLUTE AUTO 0.02 K/mm3 (0.00-0.10); IMMATURE GRAN PERCENT AUTO 0 % (0-1); LYMPHOCYTES ABSOLUTE AUTO 1.84 K/mm3 (0.84-5.20); LYMPHOCYTES PERCENT AUTO 28 % (21-46); MONOCYTES ABSOLUTE AUTO 0.58 K/mm3 (0.16-1.47); MONOCYTES PERCENT AUTO 9 % (4-13); Mean Corpuscular HGB Conc 32.3 g/dL (31.5-36.5); Mean Corpuscular Volume 90 fL (80-100); Mean Platelet Volume 10.7 fL (9.1-12.4); NEUTROPHILS ABSOLUTE AUTO 3.86 K/mm3 (1.96-9.15); NEUTROPHILS PERCENT AUTO 59 % (41-73); Platelet Count 195 K/mm3 (150-400); RDW Coefficient Variation 13.4 % (11.7-14.2); RDW Standard Deviation 43.8 fL (35.1-46.3); Red Blood Cell Count 4.14 M/mm3 (3.80-5.20); White Blood Cell Count 6.53 K/mm3 (4.00-11.30)
[2020-08-02 04:15] LABS: Anion Gap 11 mmol/L (6-16); Blood Urea Nitrogen 9 mg/dL (8-24); Bun/Creatinine Ratio 12.8 (12.0-20.0); CO2, Blood 24 mmol/L (21-32); Calcium, Blood 8.6 mg/dL (8.5-10.1); Chloride, Blood 103 mmol/L (98-108); Glomerular Filtration Rate >60 (60-); Glucose, Blood 69 mg/dL (70-99); Potassium, Blood 3.3 mmol/L (3.5-5.5); Sodium, Blood 138 mmol/L (136-145)
[2020-08-02 04:38] LABS: Source, Urine Catheter
[2020-08-02 04:42] LABS: Bilirubin, Urine Neg (Neg); Blood, Urine 2+ (Neg); Glucose Qualitative, Urine Neg (Neg); Ketones, Urine Neg (Neg); Leukocyte Esterase, Urine Neg (Neg); Nitrite, Urine Neg (Neg); Protein, Urine Neg (Neg); Specific Gravity, Urine 1.025 (1.003-1.022); Urobilinogen, Urine NORM (Normal)
[2020-08-02 04:56] LABS: Appearance, Urine Clear (Clear); Color, Urine Yellow (P-Yellow)
[2020-08-02 05:07] LABS: Bacteria Not Seen /hpf; Squamous Epithelial Cells Not Seen /hpf (Few); White Blood Cells, Urine Not Seen /hpf (0-5)
== END 2020-08-02 06:37 | disposition home or self-care (01) ==
LOC: ER 02:37
PROVIDERS: Student in an Organized Health Care Education/Training Program
DX: G40.909 Epilepsy, unspecified, not intractable, without status epilepticus (principal); Z86.73 Personal history of transient ischemic attack (TIA), and cerebral infarction without residual deficits; Z88.2 Allergy status to sulfonamides; Z88.8 Allergy status to other drugs, medicaments and biological substances; Z88.5 Allergy status to narcotic agent; Z79.82 Long term (current) use of aspirin
CPT/HCPCS: 36415; 80048; 81001; 82947; 85025; 93005; 93010; 99284-25

== ENCOUNTER 2020-08-02 06:59 | Emergency (ER) | payer OTHER ==
[~2020-08-02] VITALS: Ht 167.6 cm; Wt 56.7 kg
[2020-08-02 08:53] LABS: Influenza A, PCR NEGATIVE (NEGATIVE); Influenza B, PCR NEGATIVE (NEGATIVE); Resp Syncytial Virus, PCR NEGATIVE (NEGATIVE); SARS-Cov-2 (COVID-19) PCR, MMC NEGATIVE (NEGATIVE)
== END 2020-08-02 11:05 | disposition home or self-care (01) ==
LOC: ER 06:59
PROVIDERS: Emergency Medicine
DX: G40.909 Epilepsy, unspecified, not intractable, without status epilepticus (principal); I63.9 Cerebral infarction, unspecified; G81.91 Hemiplegia, unspecified affecting right dominant side; Z79.82 Long term (current) use of aspirin; Z88.2 Allergy status to sulfonamides; Z79.899 Other long term (current) drug therapy; Z20.822 Contact with and (suspected) exposure to COVID-19
CPT/HCPCS: 0241U; 70450; 71045; 93005; 93010; 96365; 99285-25; J1953

== ENCOUNTER → 2020-09-08 | Outpatient (CLI) | payer OTHER ==
[2020-09-08 09:57] LABS: Source, Urine Voided
[2020-09-08 10:07] LABS: Appearance, Urine Clear (Clear); Bilirubin, Urine Neg (Neg); Color, Urine Yellow (P-Yellow); Glucose Qualitative, Urine Neg (Normal); Ketones, Urine Neg (Neg); Leukocyte Esterase, Urine Trace (Neg); Nitrite, Urine Neg (Neg); Protein, Urine Neg (Neg); Specific Gravity, Urine 1.025 (1.003-1.022); Urobilinogen, Urine NORM (Normal)
[2020-09-08 10:08] LABS: Bacteria Not Seen /hpf; Blood, Urine 2+ (Neg); Calcium Oxalate Crystals Many /hpf; Squamous Epithelial Cells Few /hpf (Few); White Blood Cells, Urine Rare /hpf (0-5)
== END | disposition home or self-care (01) ==
LOC: LAB EV 09:56 → LAB 09:56 → LAB SHORT 09:56
PROVIDERS: Family Medicine
DX: R30.0 Dysuria (principal)
CPT/HCPCS: 81001; 87086

== ENCOUNTER 2021-05-13 20:27 | Emergency (ER) | payer OTHER ==
[~2021-05-13] VITALS: Ht 157.5 cm; Wt 65.8 kg
[2021-05-13] MEDS ORDERED: ZEBUTAL 50-3251 EAC1 PO (22:41)
== END 2021-05-13 23:06 | disposition home or self-care (01) ==
LOC: ER 20:27
DX: R51.9 Headache, unspecified (principal); Z87.891 Personal history of nicotine dependence; Z86.73 Personal history of transient ischemic attack (TIA), and cerebral infarction without residual deficits; Z88.2 Allergy status to sulfonamides; Z88.5 Allergy status to narcotic agent; Z79.899 Other long term (current) drug therapy; Z91.040 Latex allergy status
CPT/HCPCS: 70450; 93005; 93010; 96374; 96375; 99284-25; A9270; J2405; J3010

== ENCOUNTER → 2021-05-31 | Outpatient (CLI) | payer OTHER ==
[~2021-05-31] MED LIST changes: +ZEBUTAL 50-3251 EAC1 PO
== END | disposition home or self-care (01) ==
LOC: LAB 12:31 → LAB SHORT 12:31
PROVIDERS: Family Medicine
DX: G89.4 Chronic pain syndrome (principal)
CPT/HCPCS: G0480

== ENCOUNTER 2021-08-24 01:25 | Day surgery (SDC) | payer OTHER ==
[~2021-08-24 01:25] MED LIST changes: +ABILIFY MYCITE2 M2 PO; +ALPR.25 PO; +BACL10 PO; +FISH OIL 1,2001 EAC7 PO; +MAGNESIUM OXID500 MG PO
== END 2021-08-24 23:11 | disposition home or self-care (01) ==
LOC: WOUND 01:25
DX: L89.322 Pressure ulcer of left buttock, stage 2 (principal); L89.311 Pressure ulcer of right buttock, stage 1; I69.251 Hemiplegia and hemiparesis following other nontraumatic intracranial hemorrhage affecting right dominant side; R15.9 Full incontinence of feces; R32 Unspecified urinary incontinence; Z88.2 Allergy status to sulfonamides; Z88.5 Allergy status to narcotic agent; Z88.8 Allergy status to other drugs, medicaments and biological substances; Z87.891 Personal history of nicotine dependence
CPT/HCPCS: G0463

== ENCOUNTER 2021-09-08 08:10 | Day surgery (SDC) | payer OTHER | END 2021-09-08 22:49 | disposition home or self-care (01) | LOC: WOUND 08:10 | DX: L89.322 Pressure ulcer of left buttock, stage 2 (principal); L89.311 Pressure ulcer of right buttock, stage 1; I69.251 Hemiplegia and hemiparesis following other nontraumatic intracranial hemorrhage affecting right dominant side; R15.9 Full incontinence of feces; R32 Unspecified urinary incontinence | CPT/HCPCS: G0463 ==

== ENCOUNTER 2021-09-15 01:01 | Day surgery (SDC) | payer OTHER | END 2021-09-15 23:10 | disposition home or self-care (01) | LOC: WOUND 01:01 | DX: L89.322 Pressure ulcer of left buttock, stage 2 (principal); I69.251 Hemiplegia and hemiparesis following other nontraumatic intracranial hemorrhage affecting right dominant side; R15.9 Full incontinence of feces; R32 Unspecified urinary incontinence | CPT/HCPCS: A9270; G0463 ==

== ENCOUNTER 2021-09-29 01:19 | Day surgery (SDC) | payer OTHER | END 2021-10-04 23:34 | disposition home or self-care (01) | LOC: WOUND 01:19 | DX: L89.322 Pressure ulcer of left buttock, stage 2 (principal); L89.310 Pressure ulcer of right buttock, unstageable; I69.251 Hemiplegia and hemiparesis following other nontraumatic intracranial hemorrhage affecting right dominant side; R15.9 Full incontinence of feces; R32 Unspecified urinary incontinence | CPT/HCPCS: G0463 ==

== ENCOUNTER 2022-01-31 11:38 | Emergency (ER) | payer OTHER ==
[~2022-01-31] VITALS: Ht 162.6 cm; Wt 72.6 kg
[2022-01-31 13:09] LABS: BASOPHILS ABSOLUTE AUTO 0.05 K/mm3 (0.00-0.23); BASOPHILS PERCENT AUTO 1 % (0-2); EOSINOPHILS PERCENT AUTO 4 % (0-6); Hemoglobin 11.6 g/dL (11.5-16.0); IMMATURE GRAN ABSOLUTE AUTO 0.03 K/mm3 (0.00-0.10); IMMATURE GRAN PERCENT AUTO 0 % (0-1); LYMPHOCYTES PERCENT AUTO 30 % (21-46); MONOCYTES ABSOLUTE AUTO 0.58 K/mm3 (0.16-1.47); MONOCYTES PERCENT AUTO 8 % (4-13); Mean Corpuscular HGB 27.9 pg (26.0-34.0); Mean Corpuscular HGB Conc 32.2 g/dL (31.5-36.5); Mean Corpuscular Volume 87 fL (80-100); Mean Platelet Volume 10.4 fL (9.1-12.4); NEUTROPHILS PERCENT AUTO 58 % (41-73); Platelet Count 235 K/mm3 (150-400); RDW Standard Deviation 53.9 fL (35.1-46.3); Red Blood Cell Count 4.16 M/mm3 (3.80-5.20); White Blood Cell Count 7.76 K/mm3 (4.00-11.30)
[2022-01-31 13:22] LABS: Albumin, Blood 3.7 g/dL (3.4-5.0); Albumin/Globulin Ratio 1.1 (0.8-1.8); Bilirubin, Total 0.3 mg/dL (0.1-1.0); Bun/Creatinine Ratio 20.4 (12.0-20.0); Calcium, Blood 9.1 mg/dL (8.5-10.1); Creatinine, Blood 0.74 mg/dL (0.40-1.00); Globulin, Blood 3.3 g/dL (2.2-4.0); Potassium, Blood 4.5 mmol/L (3.5-5.5)
[2022-01-31 13:24] LABS: Valproic Acid 23.4 ug/mL (50.0-100.0)
[2022-01-31 14:51] LABS: Source, Urine Clean Catch
[2022-01-31 15:00] LABS: Appearance, Urine Hazy (Clear); Bilirubin, Urine Neg (Neg); Blood, Urine 3+ (Neg); Color, Urine Yellow (P-Yellow); Glucose Qualitative, Urine Neg (Neg); Ketones, Urine Neg (Neg); Leukocyte Esterase, Urine 3+ (Neg); Nitrite, Urine Neg (Neg); Protein, Urine 1+ (Neg); Urobilinogen, Urine NORM (Normal)
[2022-01-31 15:09] LABS: White Blood Cells, Urine 50-100 /hpf (0-5)
[2022-01-31 15:10] LABS: Bacteria Many /hpf; Squamous Epithelial Cells Mod /hpf (Few)
[2022-01-31 15:11] LABS: Renal Epithelial Few /hpf (0-Rare)
[2022-01-31] MEDS ORDERED: CEPH500 PO (16:09)
[2022-01-31] MEDS ORDERED: OXYC5 PO (16:09)
== END 2022-01-31 17:10 | disposition home or self-care (01) ==
LOC: ER 11:38
PROVIDERS: Emergency Medicine
DX: R56.9 Unspecified convulsions (principal); R51.9 Headache, unspecified; N39.0 Urinary tract infection, site not specified; G20 Parkinson's disease; Z87.891 Personal history of nicotine dependence
CPT/HCPCS: 36415; 70450; 80053; 80164; 81001; 85025; 87077; 87086; 87186; 96365; 96375; 96376; 99284-25; A9270; J0696; J1953; J2405; J3010; J7030

== ENCOUNTER → 2022-06-03 | Outpatient (CLI) | payer OTHER ==
[~2022-06-03] MED LIST changes: +AMOCLA875 PO; +Baclofen20 MG PO; +CARBIDOPA-LEVO1 EAC9 PO; +CELEXA40 M1 PO; +DIABETIC T100 MG/5 M PO; +DIAZ5 PO; +DIVA250EC PO; +DOXY100 PO; +FISH OIL-VIT D1 EACH PO; +IPRAT-ALBUT 0.5-3 ML INH; +LISI5 PO; +MIRALAX17 GM PO; +OXAYDO5 M1 PO; +OXYC5 PO; +SIME40L PO
== END ==
LOC: LAB SHORT 17:10 → LAB 17:10
DX: G40.89 Other seizures (principal)
CPT/HCPCS: 80177

== ENCOUNTER 2022-06-19 01:36 | Inpatient (IN) | payer OTHER ==
[~2022-06-19] VITALS: Ht 160 cm; Wt 57.7 kg
[~2022-06-19 01:36] MED LIST changes: +CARBIDOPA-LEVO1 EA15 PO; -CARBIDOPA-LEVO1 EAC9 PO; +KEPPRA100 MG/1 M PO
[2022-06-19 02:16] LABS: BASOPHILS ABSOLUTE AUTO 0.06 K/mm3 (0.00-0.23); BASOPHILS PERCENT AUTO 1 % (0-2); EOSINOPHILS ABSOLUTE AUTO 0.47 K/mm3 (0.00-0.68); EOSINOPHILS PERCENT AUTO 4 % (0-6); Hematocrit 37.5 % (33.0-51.0); Hemoglobin 12.2 g/dL (11.5-16.0); IMMATURE GRAN ABSOLUTE AUTO 0.04 K/mm3 (0.00-0.10); IMMATURE GRAN PERCENT AUTO 0 % (0-1); LYMPHOCYTES ABSOLUTE AUTO 0.64 K/mm3 (0.84-5.20); LYMPHOCYTES PERCENT AUTO 6 % (21-46); MONOCYTES ABSOLUTE AUTO 0.56 K/mm3 (0.16-1.47); MONOCYTES PERCENT AUTO 5 % (4-13); Mean Corpuscular HGB 30.2 pg (26.0-34.0); Mean Corpuscular HGB Conc 32.5 g/dL (31.5-36.5); Mean Corpuscular Volume 93 fL (80-100); Mean Platelet Volume 10.3 fL (9.1-12.4); NEUTROPHILS ABSOLUTE AUTO 9.45 K/mm3 (1.96-9.15); NEUTROPHILS PERCENT AUTO 84 % (41-73); Platelet Count 240 K/mm3 (150-400); RDW Coefficient Variation 14.3 % (11.7-14.2); RDW Standard Deviation 49.1 fL (35.1-46.3); Red Blood Cell Count 4.04 M/mm3 (3.80-5.20); White Blood Cell Count 11.22 K/mm3 (4.00-11.30)
[2022-06-19 02:34] LABS: International Normalized Ratio 1.02; Prothrombin Time Results 10.7 Sec (9.7-11.5)
[2022-06-19 02:42] LABS: Magnesium, Blood 2.2 mg/dL (1.6-2.4)
[2022-06-19 02:50] LABS: Albumin, Blood 3.1 g/dL (3.4-5.0); Albumin/Globulin Ratio 0.7 (0.8-1.8); Bilirubin, Total 0.3 mg/dL (0.1-1.0); Bun/Creatinine Ratio 46.2 (12.0-20.0); Calcium, Blood 9.2 mg/dL (8.5-10.1); Creatinine, Blood 0.33 mg/dL (0.40-1.00); Globulin, Blood 4.4 g/dL (2.2-4.0); Potassium, Blood 3.9 mmol/L (3.5-5.5); Thyroid Stimulating Hormone 0.814 uIU/mL (0.360-4.800); Total Protein, Blood 7.5 g/dL (6.4-8.2)
[2022-06-19 03:00] LABS: Source, Urine Straight Cath
[2022-06-19 03:07] LABS: Bilirubin, Urine Neg (Neg); Blood, Urine 1+ (Neg); Glucose Qualitative, Urine Neg (Neg); Ketones, Urine 1+ (Neg); Leukocyte Esterase, Urine Neg (Neg); Nitrite, Urine Neg (Neg); Protein, Urine 1+ (Neg); Specific Gravity, Urine 1.015 (1.003-1.022); Urobilinogen, Urine NORM (Normal); pH, Urine 6.5 (5.0-8.0)
[2022-06-19 03:11] LABS: Appearance, Urine Hazy (Clear); Color, Urine Yellow (P-Yellow)
[2022-06-19 03:12] LABS: Red Blood Cells, Urine 0-2 /hpf (0-2); White Blood Cells, Urine 0-2 /hpf (0-5)
[2022-06-19 03:13] LABS: Amorphous Light (0-Heavy); Bacteria Few /hpf; Mucus Mod (0-Heavy); Squamous Epithelial Cells Mod /hpf (Few); Transitional Epithelial Cells Few /hpf (0-Rare); Yeast/Fungi Urine Few /hpf
[2022-06-19] MEDS ORDERED: XANAX0.25 MG PO (03:14)
[2022-06-19 03:15] LABS: PCO2 Venous 53.5 mmHg (38-42); pH Blood Venous 7.35 (7.34-7.37)
[2022-06-19 03:16] LABS: U Amphetamine Screen DETECTED; U Barbituate Screen Not Detected; U Benzodiazapine Screen DETECTED; U Buprenorphine Screen Not Detected; U Cannabinoids Screen Not Detected; U Cocaine Screen Not Detected; U Methadone Screen Not Detected; U Methamphetamine Screen Not Detected; U Opiates Screen DETECTED; U Oxycodone Screen Not Detected; U Phencyclidine Screen Not Detected; U Propoxyphene Screen Not Detected
--- NOTE | 2022-06-19 06:56 | NUR ---
0510: PT ARRIVE VIA GURNEY, SLIDER SHEET WHEN TRANSFER TO BED. PT ALERT. LETHARGIC. SOFT BP. 90'S/40-50'S. 89-91% ON HHFNC WITH 45L/MIN, 55%FIO2. ATTENDS IN PLACE. PT HX OF CVA. R SIDE DEFICIT. FLACID ON R ARM. UNABLE TO MOVE BILATERAL LOW EXTREMITIES. COARSE LUNGS SOUNDS T/O. NON-VERBAL. DTR AT BEDSIDE PROVIDING INFORMATION. BEDBOUND ON BASELINE. BOTTOM WITH PRESSURE ULCER UPON ADMISSION. PHOTO ON CHART. SCALY SKIN ON BLE. CALL LIGHT WITHIN REACH. WILL PROVIDE REPORT ONCOMING NURSE.
--- NOTE | 2022-06-19 07:11 | NUR ---
0655: CALLED DR. ODOM FOR SOFT BP. AN ORDER FOR 500MLS BOLUS. BOLUS INFUSING AT THIS TIME. NOTIFIED DILLON GUAJARDO. WILL MONITOR VITALS.
--- NOTE | 2022-06-19 18:43 | NUR ---
SHIFT SUMMARY S/P ACUTE RESPIRATORY FAILURE, A/O BUT NON VERBAL, USES HAND GENSTURES TO ANSWER YES/NO QUESTIONS, DAUGHTER AT BEDSIDE T/O THE SHIFT, PT REMAINED HYPOTENSIVE T/O THE SHIFT WITH PRESSURES SHOWING SLIGHT IMPROVEMENT, MAP HAS BEEN BETWEEN 64 AND 70 T/O MOST OF THE SHIFT AFTER STARTING MIDODRINE, Q2 TURNS AND CHANGING BRIEFS NEEDED. CARDIOLOGY CONSULTED TODAY. NO ACUTE EVENTS THIS SHIFT, CALL LIGHT IN REACH, WILL CTM AND REPORT TO ONCOMING NOC RN.
[2022-06-20 04:02] LABS: BASOPHILS PERCENT AUTO 1 % (0-2); EOSINOPHILS ABSOLUTE AUTO 0.08 K/mm3 (0.00-0.68); EOSINOPHILS PERCENT AUTO 0 % (0-6); Hematocrit 35.9 % (33.0-51.0); Hemoglobin 11.4 g/dL (11.5-16.0); IMMATURE GRAN ABSOLUTE AUTO 0.27 K/mm3 (0.00-0.10); IMMATURE GRAN PERCENT AUTO 1 % (0-1); LYMPHOCYTES ABSOLUTE AUTO 0.85 K/mm3 (0.84-5.20); LYMPHOCYTES PERCENT AUTO 4 % (21-46); MONOCYTES ABSOLUTE AUTO 0.88 K/mm3 (0.16-1.47); MONOCYTES PERCENT AUTO 4 % (4-13); Mean Corpuscular HGB 29.8 pg (26.0-34.0); Mean Corpuscular HGB Conc 31.8 g/dL (31.5-36.5); Mean Corpuscular Volume 94 fL (80-100); Mean Platelet Volume 9.7 fL (9.1-12.4); NEUTROPHILS ABSOLUTE AUTO 19.68 K/mm3 (1.96-9.15); NEUTROPHILS PERCENT AUTO 90 % (41-73); Platelet Count 215 K/mm3 (150-400); RDW Coefficient Variation 14.6 % (11.7-14.2); RDW Standard Deviation 50.1 fL (35.1-46.3); Red Blood Cell Count 3.82 M/mm3 (3.80-5.20); White Blood Cell Count 21.86 K/mm3 (4.00-11.30)
--- NOTE | 2022-06-20 04:12 | NUR ---
0300: PT DESAT TO LOW 80'S. CALLED RESP THERAPIST TO EVAL PT. ADJUSTED HHFNC SETTING WITH NO IMPROVEMENT. LEFT LUNG SOUNDS COARSE. DEEP SUCTIONED BY RESP THERAPIST WITH RELIEF. SETTING ADJUSTED TO 50L/MIN 80FIO2. CALL LIGHT WITHIN REACH. DTR IN ROOM WITH PT. LUNGS SOUNDS IMPROVED AFTER DEEP SUCTION. PT REPORTS RELIEF USING HAND SIGN. REPOSITIONED PT TOWARDS HER RIGHT SIDE. ENC DEEP BREATHING AND COUGHING.
[2022-06-20 04:26] LABS: Magnesium, Blood 2.7 mg/dL (1.6-2.4)
[2022-06-20 04:36] LABS: Albumin, Blood 2.4 g/dL (3.4-5.0); Anion Gap 7 mmol/L (6-16); Blood Urea Nitrogen 12 mg/dL (8-24); Bun/Creatinine Ratio 36.1 (12.0-20.0); CO2, Blood 21 mmol/L (21-32); Calcium, Blood 9.1 mg/dL (8.5-10.1); Chloride, Blood 110 mmol/L (98-108); Creatinine, Blood 0.33 mg/dL (0.40-1.00); Glomerular Filtration Rate 116 (60-); Glucose, Blood 93 mg/dL (70-99); Phosphorus, Blood 3.4 mg/dL (2.5-4.9); Sodium, Blood 138 mmol/L (136-145)
--- NOTE | 2022-06-20 05:10 | NUR ---
SHIFT SUMMARY PT SLEPT GOOD MOST OF THE NIGHT. REPOSITIONED EVERY 2 HOURS. COARSE LUNG SOUND T/O WORST ON LEFT LOBE THIS MORNING. DESAT AT LOW 80'S EPISODE AT 0300 AM. SEE NOTES. RESP THERAPIST DID A DEEP SUCTION WITH ABOUT 75CC LARGE AMT OF YELLOW WHITE THICK MUCOUS. LUNGS IMPROVED AFTER SUCTION AND RELIEF WITH PATIENT. HHFNC ADJUSTED TO 50L/MIN FIO2 80 AT 0330. RESP THERAPIST CAME BACK TITRATE SETTING TO 50L/MIN WITH FIO2 OF 63. PT APPEARS TO BE COMFORTABLE IN BED. REPOSITIONED TO R SIDE. ENC DEEP BREATHING AND COUGHING. PT HAD A HARD TIME SWALLOWING LIQ TYLENOL, PT CAN TOLERATE CRUSHED TABLET WITH APPLE SAUCE BETTER. LIQ FORM CHANGED WITH TAB, NOTIFIED PHARMACY OF THIS CHANGE. CALL LIGHT WITHI REACH. WILL PROVIDE REPORT TO ONCOMING NURSE.
--- NOTE | 2022-06-20 17:24 | NUR ---
Pt is a 62 year old female who is non-verbal, with hx of CVA, R side hemiplegia, heart failure, dysphagia, with hospitalization for Covid in Mar 2022. According to her daughter Sophia, pt didn't "bounce back" after Covid, and is no longer able to sit up unassisted. She has been refusing most food and fluids, and has been placed on a pureed diet with thickened liquids today. Pt's sister Juju is POA, and is planning to come see pt in the next day or two. She was made aware by Dr. Bonilla today that pt's overall health is declining. However, no changes to plan of care or decisions to change course have been made at this time. Pt's sister Juju would like to get an update from physician again tomorrow before making any decisions. However, she is realistic and seems to understand pt may not recover from this illness. Palliative care to remain involved.
--- NOTE | 2022-06-20 19:15 | NUR ---
ASSUMED CARE PATIENT IN BED EYES OPEN. HIFLOW NC WAS OFF AND ON TOP OF HER HEAD O2 SATS WERE IN 80'S. REPLACED HIFLOW NC O2 SATS CAME UP TO 93%. PATIENT COMMUNICATION IS NON VERBAL
--- NOTE | 2022-06-20 19:17 | NUR ---
SHIFT SUMMARY PT ALERT, ANSWERS YES OR NO QUESTIONS OCCASIONALLY. SP02>90% ON AIRVO 45L 55%. TELEMETRY SHOWS MSTLY NSR, HR 80'S. BP SOFT, MIDODRINE GIVEN PER EMAR. PURWIK TO LIS, DARK YELLOW URINE. C/D ATTENDS IN PLACE. DAUGHTER STATED PT WAS IN PAIN MULTIPLE TIMES. MEDICATED PER EMAR W/ 5MG D/T SOFT BP. PT NOT ABLE TO STATE PAIN, BUT POINTS TO ABD. ABX INFUSED PER EMAR. PT HAD SPEECH EVALUATION TODAY. THICKENED LIQUIDS, PUREE DIET, MEDS W/ APPLESAUCE. PT REPOSITIONED Q2H. ORAL TID. DIFFICULTY WITH DAUGHTER THIS EVENING. DAUGHTER UPSET STAFF IN ROOM "WOKE HER (THE DAUGHTER, NOT THE PT) UP". ONEIL FROM PALLATIVE IN ROOM WITH THIS RN AND OPERATIONS RESEARCH ENGINEER. DAUGHTER INFORMED PLEASANTLY OF STAFF HERE TO HELP PT. DAUGHTER YELLING AT STAFF, STATED, "I AM ANXIOUS I AM GOING HOME" AND WENT HOME. PT RESTING IN ROOM. REPORT GIVEN TO NOC NURSE. CALL LIGHT IN REACH.
[2022-06-21 04:19] LABS: BASOPHILS ABSOLUTE AUTO 0.04 K/mm3 (0.00-0.23); BASOPHILS PERCENT AUTO 0 % (0-2); EOSINOPHILS ABSOLUTE AUTO 0.08 K/mm3 (0.00-0.68); EOSINOPHILS PERCENT AUTO 0 % (0-6); Hematocrit 28.6 % (33.0-51.0); Hemoglobin 9.4 g/dL (11.5-16.0); IMMATURE GRAN PERCENT AUTO 2 % (0-1); LYMPHOCYTES ABSOLUTE AUTO 0.78 K/mm3 (0.84-5.20); LYMPHOCYTES PERCENT AUTO 4 % (21-46); MONOCYTES ABSOLUTE AUTO 0.92 K/mm3 (0.16-1.47); MONOCYTES PERCENT AUTO 5 % (4-13); Mean Corpuscular HGB 30.4 pg (26.0-34.0); Mean Corpuscular HGB Conc 32.9 g/dL (31.5-36.5); Mean Corpuscular Volume 93 fL (80-100); NEUTROPHILS ABSOLUTE AUTO 18.38 K/mm3 (1.96-9.15); NEUTROPHILS PERCENT AUTO 90 % (41-73); Platelet Count 200 K/mm3 (150-400); RDW Coefficient Variation 14.7 % (11.7-14.2); RDW Standard Deviation 50.2 fL (35.1-46.3); Red Blood Cell Count 3.09 M/mm3 (3.80-5.20)
[2022-06-21 06:46] LABS: Albumin, Blood 2.2 g/dL (3.4-5.0); Albumin/Globulin Ratio 0.6 (0.8-1.8); Bilirubin, Total 0.5 mg/dL (0.1-1.0); Calcium, Blood 8.4 mg/dL (8.5-10.1); Creatinine, Blood 0.31 mg/dL (0.40-1.00); Globulin, Blood 3.7 g/dL (2.2-4.0); Potassium, Blood 3.6 mmol/L (3.5-5.5); Total Protein, Blood 5.9 g/dL (6.4-8.2)
--- NOTE | 2022-06-21 07:08 | NUR ---
PATIENT STABLE OVER NIGHT. NOW ON 6L NC. Q2 TURNS
--- NOTE | 2022-06-21 07:25 | NUR ---
ASSUMED CARE: PT RESTING IN BED ON 6L NC. NSR ON TELE IN 70S. NO ACUTE NEEDS OR CONCERNS AT THIS TIME.
--- NOTE | 2022-06-21 11:07 | NUR ---
SPEECH THERAPY AT BEDSIDE AT THIS TIME. DIETITIAN ENQUIRED ABOUT SUPPLEMENTS ON MEAL TRAY AND GOT UPDATES FROM CHIEF OF SERVICE REGARDING HOW PT IS ABLE TO FEED SELF WITH HEAVY BOWLS AND SPOONS. DIETARY STATES SHE WILL LOOK INTO KITCHEN SUPPLIES AVAILABLE TO PT FOR SELF-FEEDING
--- NOTE | 2022-06-21 12:25 | NUR ---
PT'S SISTER SCOTT CALLED AND WAS GIVEN AN UPDATE REGARDING PT'S VITAL SIGNS AND APPETITE. SISTER REPORTS THAT PT HAS HAD A POOR APPETITE FOR A FEW MONTHS NOW. ASSISTED PT WITH BOWEL CARE MEDS AND PAIN MEDICATION ADMINISTERED. PT DENIES FURTHER NEEDS AT THIS TIME
--- NOTE | 2022-06-21 17:46 | NUR ---
SHIFT SUMMARY: PT REMAINS ON 6L O2 VIA NC. SATS BETWEEN 88 AND 96%. FAMILY CALLED AND HAS BEEN GIVEN UPDATE THIS SHIFT. BEDBATH AND Q2 TURNS THIS SHIFT. NO ACUTE NEEDS OR CONCERNS AT THIS TIME.
[2022-06-21 21:18] LABS: U Amphetamine Screen Not Detected; U Barbituate Screen Not Detected; U Benzodiazapine Screen DETECTED; U Buprenorphine Screen Not Detected; U Cannabinoids Screen Not Detected; U Cocaine Screen Not Detected; U Methadone Screen Not Detected; U Methamphetamine Screen Not Detected; U Opiates Screen DETECTED; U Oxycodone Screen DETECTED; U Phencyclidine Screen Not Detected; U Propoxyphene Screen Not Detected
[2022-06-22 00:43] LABS: Vancomycin, Trough 14.6 ug/mL (5.0-10.0)
--- NOTE | 2022-06-22 05:33 | NUR ---
PT IS NONVERBAL BUT ABLE TO MAKE NEEDS KNOWN WITH HAND GESTURES, ANSWERS YES OR NO QUESTIONS. ON 6LNC WITH 02 SAT 88-94%. PT IS ANXIOUS, PRN XANAX GIVE WITH RELIEF, C/O FLANK/ BACK PAIN RELIEVED WITH OXY. PT NEEDS FREQUENT REPOSITIONING, TOTAL CARE. VSS.
[2022-06-22 06:41] LABS: BASOPHILS ABSOLUTE AUTO 0.05 K/mm3 (0.00-0.23); BASOPHILS PERCENT AUTO 0 % (0-2); EOSINOPHILS ABSOLUTE AUTO 0.03 K/mm3 (0.00-0.68); EOSINOPHILS PERCENT AUTO 0 % (0-6); Hematocrit 28.2 % (33.0-51.0); Hemoglobin 9.4 g/dL (11.5-16.0); IMMATURE GRAN PERCENT AUTO 5 % (0-1); LYMPHOCYTES ABSOLUTE AUTO 0.76 K/mm3 (0.84-5.20); LYMPHOCYTES PERCENT AUTO 6 % (21-46); MONOCYTES ABSOLUTE AUTO 0.83 K/mm3 (0.16-1.47); MONOCYTES PERCENT AUTO 6 % (4-13); Mean Corpuscular HGB 30.1 pg (26.0-34.0); Mean Corpuscular HGB Conc 33.3 g/dL (31.5-36.5); Mean Corpuscular Volume 90 fL (80-100); Mean Platelet Volume 9.1 fL (9.1-12.4); NEUTROPHILS PERCENT AUTO 83 % (41-73); Platelet Count 245 K/mm3 (150-400); RDW Coefficient Variation 14.4 % (11.7-14.2); RDW Standard Deviation 47.7 fL (35.1-46.3); Red Blood Cell Count 3.12 M/mm3 (3.80-5.20); White Blood Cell Count 13.67 K/mm3 (4.00-11.30)
[2022-06-22 07:00] LABS: Bun/Creatinine Ratio 14.5 (12.0-20.0); Calcium, Blood 8.4 mg/dL (8.5-10.1); Creatinine, Blood 0.34 mg/dL (0.40-1.00); Potassium, Blood 2.8 mmol/L (3.5-5.5)
--- NOTE | 2022-06-22 07:38 | NUR ---
Bedside report from CASANDRA Serna. Pt is awake, alert, and attempting to communicate by pointing to her attends. Verified that she is clean and dry. She shakes her head when asked if she is in pain. She is non-verbal, except for saying "no" I am told in report. She is able to nod/shake her head to yes/no questions. She is using her left hand to point or communicate as well, albeit with some apparent difficulty. I asked her again if she was in pain, she nodded yes, and when I asked her to point to her painful area, she touches her abdomen.
--- NOTE | 2022-06-22 12:19 | NUR ---
Pt is is eating lunch, sitting up in bed, feeding herself puree diet, and appears to have a good appetite. OT stroke plate and utensils in use to promote as much self feeding as possible.
--- NOTE | 2022-06-22 12:23 | NUR ---
At rest, spo2 maintaining above 90% while on 3 l/min of O2. Increased to 4.5 l/min while she is feeding herself. spo2 92% while eating on 4.5 l/min of o2 delivery.
--- NOTE | 2022-06-22 13:17 | NUR ---
Given scheduled medication. She is lying down, appears to be falling asleep at this time. spo2 96% on 4.5 l/min O2; decreased flow to 3 l/min.
--- NOTE | 2022-06-22 14:30 | NUR ---
Returned the phone call from pt's sister Juju. Her questions regarding pt's general condition, oxygen requirements, appetite, pain level, vital signs and improved WBC count were answered. She said that the pt's daughter Sophia is leaving for her home in [place] tomorrow to care for her own medical needs, and she needs to talk to the digital media planner about the plan afterwards. Her phone number was passed along to the digital media planner Yamel.
[2022-06-22 15:49] LABS: Bun/Creatinine Ratio 18.8 (12.0-20.0); Calcium, Blood 8.8 mg/dL (8.5-10.1); Creatinine, Blood 0.32 mg/dL (0.40-1.00); Potassium, Blood 3.6 mmol/L (3.5-5.5)
--- NOTE | 2022-06-22 16:54 | NUR ---
Kathya appears to be sleeping comfortably, respirations regular and unlabored, spo2 98% on 3 l/min of O2.
[2022-06-23 05:46] LABS: Hematocrit 29.9 % (33.0-51.0); Hemoglobin 9.7 g/dL (11.5-16.0); Mean Corpuscular HGB 29.9 pg (26.0-34.0); Mean Corpuscular HGB Conc 32.4 g/dL (31.5-36.5); Mean Corpuscular Volume 92 fL (80-100); Mean Platelet Volume 9.1 fL (9.1-12.4); Platelet Count 266 K/mm3 (150-400); RDW Coefficient Variation 14.6 % (11.7-14.2); RDW Standard Deviation 50.1 fL (35.1-46.3); Red Blood Cell Count 3.24 M/mm3 (3.80-5.20); White Blood Cell Count 16.22 K/mm3 (4.00-11.30)
--- NOTE | 2022-06-23 06:14 | NUR ---
PATIENT SLEPT WELL OVERNIGHT, ABLE TO COMMUNICATE BY NODDING YES AND NO. NC REMAINS AT 3L WITH SATS ABOVE 94%. PUREWICK IN PLACE, VOIDED 600 OVERNIGHT. POSITIONED CHANFGED FREQUENTLY. NO ACUTE SAFETY CONCERNS AT THIS TIME.
[2022-06-23 06:41] LABS: BASOPHILS PERCENT MAN 0 % (0-2); EOSINOPHILS PERCENT MAN 0 % (0-6); LYMPHOCYTES ABSOLUTE MAN 1.29 K/mm3 (0.84-5.20); LYMPHOCYTES PERCENT MAN 8 % (21-46); MONOCYTES ABSOLUTE MAN 0.48 K/mm3 (0.16-1.47); MONOCYTES PERCENT MAN 3 % (4-13); NEUTROPHILS ABSOLUTE MAN 14.43 K/mm3 (1.96-9.15); SEG NEUTROPHILS PERCENT MAN 89 % (41-73); TOTAL CELLS COUNTED 101
--- NOTE | 2022-06-23 09:22 | NUR ---
PURWICK CHANGED, PT REPOSITIONED TO HER LEFT SIDE.
--- NOTE | 2022-06-23 11:32 | NUR ---
Repositioned to a more supine position, from left side lying. Urine evacuating via purwick noted. Pt appears to be sleeping.
--- NOTE | 2022-06-23 13:16 | NUR ---
Pt was repositioned to her right side. Medicated for pain (points to right shoulder and head).
--- NOTE | 2022-06-23 14:17 | NUR ---
Telephone report given to Cony Stoll RN at this time. Pt to be transferred to [facility] shortly.
--- NOTE | 2022-06-23 14:30 | NUR ---
Pt transferred to medical floor.
[2022-06-23 16:53] LABS: Bun/Creatinine Ratio 14.1 (12.0-20.0); Creatinine, Blood 0.43 mg/dL (0.40-1.00); Potassium, Blood 3.8 mmol/L (3.5-5.5)
--- NOTE | 2022-06-23 18:40 | NUR ---
SHIFT SUMMARY: ASSUMED CARE OF PATIENT UPON HER TRANSFER FROM PCU AT 1430. AGREE WITH PREVIOUS CHILD WELFARE MANAGER. NO EVENTS ON TELMETRY, SR 70'S, NO ECTOPY. MOSTLY NON VERBAL, CAN GIVE ONE WORD ANSWERS TO QUESTIONS AT TIMES. R SIDE AND LLE FLACCID. ON O2 @ 3 L/MIN NC. ENDORSES PAIN (BUTLER, SHOULDER); MEDICATED WITH TYLENOL OXYCODONE WAS NOT YET WITHIN DOSING INTERVAL. TOLERATING PO INTAKE THUS FAR. PUREWICK IN PLACE TO MEASURE URINE AND AID IN REDUCING EXCORIATION IN VILLA AREA.
[2022-06-24 05:03] LABS: BASOPHILS ABSOLUTE AUTO 0.05 K/mm3 (0.00-0.23); BASOPHILS PERCENT AUTO 0 % (0-2); EOSINOPHILS ABSOLUTE AUTO 0.23 K/mm3 (0.00-0.68); EOSINOPHILS PERCENT AUTO 2 % (0-6); Hemoglobin 9.3 g/dL (11.5-16.0); IMMATURE GRAN PERCENT AUTO 5 % (0-1); LYMPHOCYTES ABSOLUTE AUTO 1.15 K/mm3 (0.84-5.20); LYMPHOCYTES PERCENT AUTO 9 % (21-46); MONOCYTES ABSOLUTE AUTO 0.75 K/mm3 (0.16-1.47); MONOCYTES PERCENT AUTO 6 % (4-13); Mean Corpuscular HGB 29.8 pg (26.0-34.0); Mean Corpuscular HGB Conc 32.1 g/dL (31.5-36.5); Mean Corpuscular Volume 93 fL (80-100); Mean Platelet Volume 9.1 fL (9.1-12.4); NEUTROPHILS ABSOLUTE AUTO 10.11 K/mm3 (1.96-9.15); NEUTROPHILS PERCENT AUTO 78 % (41-73); Platelet Count 275 K/mm3 (150-400); RDW Coefficient Variation 14.6 % (11.7-14.2); RDW Standard Deviation 49.3 fL (35.1-46.3); Red Blood Cell Count 3.12 M/mm3 (3.80-5.20); White Blood Cell Count 12.89 K/mm3 (4.00-11.30)
[2022-06-24 06:09] LABS: Albumin, Blood 2.1 g/dL (3.4-5.0); Albumin/Globulin Ratio 0.5 (0.8-1.8); Bilirubin, Total 0.4 mg/dL (0.1-1.0); Bun/Creatinine Ratio 19.2 (12.0-20.0); Calcium, Blood 8.8 mg/dL (8.5-10.1); Creatinine, Blood 0.42 mg/dL (0.40-1.00); Globulin, Blood 3.9 g/dL (2.2-4.0); Potassium, Blood 3.7 mmol/L (3.5-5.5)
--- NOTE | 2022-06-24 06:22 | NUR ---
SHIFT SUMMARY PT LAYING IN BED WITH EYES CLOSED, NO S/S DISTRESS- PT CURRENTLY ON 3L O2 WHICH IS HER BASELINE - PT DROWSY AT BEGINNING OF SHIFT- PT AWAKENED AROUND 2AM WITH REQUESTING FOOD AND DRINK- PT TOOK FEW BITES OF APPLE SAUCE AND HONEY THICKENED LIQUIDS- PT REQUESTED PAIN AND ANX MEDICATION - BED LOW POSITION, CALL LIGHT WITHIN REACH, BED ALARM IN PLACE
--- NOTE | 2022-06-24 16:45 | NUR ---
PT IS AA/O, NON VERBAL MAKES HAND JESTERS. THE PT APPEAERS TO BE BREATHING EASILY ON O2 # 3L/MIN AT THIS TIME. THE PT WAS MEDICATED FOR BUTLER PAIN PER HER REQUEST. THE PT IS BEDREST, CALL LIGHT IN REACH. FAMILY AT THE BEDSIDE AT THIS TIME
--- NOTE | 2022-06-25 04:46 | NUR ---
SHIFT SUMMARY NO ACUTE CHANGES TO REPORT OVERNIGHT, PT HAS RESTED T/O THE SHIFT, APPEARING COMFOTABLE. MEDICATED FOR PAIN PER EMAR. IVF INFUSING, PT COMMUICATES HER NEEDS WITH HAND JESTURES, OCCASIONALLY WILL MOUTH WORDS BUT IS MOSTLY NON VERBAL. ANTIBIOTICS AND IVF PER ORDERS. PT INCONTINENT WITH PURE WICK IN PLACE, ADEQUATE OUTPUT. VITALS STABLE. BED IN LOWEST POSITION, CALL LIGHT WITHIN REACH.
[2022-06-25 05:19] LABS: Hematocrit 30.1 % (33.0-51.0); Hemoglobin 9.6 g/dL (11.5-16.0); Mean Corpuscular HGB 29.7 pg (26.0-34.0); Mean Corpuscular HGB Conc 31.9 g/dL (31.5-36.5); Mean Corpuscular Volume 93 fL (80-100); Platelet Count 287 K/mm3 (150-400); RDW Coefficient Variation 14.4 % (11.7-14.2); RDW Standard Deviation 48.4 fL (35.1-46.3); Red Blood Cell Count 3.23 M/mm3 (3.80-5.20); White Blood Cell Count 10.54 K/mm3 (4.00-11.30)
[2022-06-25 05:59] LABS: Anion Gap 4 mmol/L (6-16); Blood Urea Nitrogen 4 mg/dL (8-24); CO2, Blood 29 mmol/L (21-32); Calcium, Blood 8.9 mg/dL (8.5-10.1); Chloride, Blood 108 mmol/L (98-108); Creatinine, Blood 0.36 mg/dL (0.40-1.00); Glomerular Filtration Rate 113 (60-); Glucose, Blood 92 mg/dL (70-99); Potassium, Blood 3.5 mmol/L (3.5-5.5); Sodium, Blood 141 mmol/L (136-145); Vancomycin, Trough 16.2 ug/mL (5.0-10.0)
[2022-06-25 06:04] LABS: BAND PERCENT MAN 7 % (0-8); BASOPHILS PERCENT MAN 0 % (0-2); EOSINOPHILS PERCENT MAN 1 % (0-6); LYMPHOCYTES ABSOLUTE MAN 1.26 K/mm3 (0.84-5.20); LYMPHOCYTES PERCENT MAN 12 % (21-46); METAMYELOCYTE ABSOLUTE MAN 0.21 K/mm3 (0.00-0.00); METAMYELOCYTE PERCENT MAN 2 % (0-0); MONOCYTES ABSOLUTE MAN 0.63 K/mm3 (0.16-1.47); MONOCYTES PERCENT MAN 6 % (4-13); MYELOCYTE ABSOLUTE MAN 0.21 K/mm3 (0.00-0.00); MYELOCYTE PERCENT MAN 2 % (0-0); NEUTROPHILS ABSOLUTE MAN 8.11 K/mm3 (1.96-9.15); SEG NEUTROPHILS PERCENT MAN 70 % (41-73); TOTAL CELLS COUNTED 100
--- NOTE | 2022-06-25 09:00 | NUR ---
pt laying in bed using hand gestures to report a bad h/a, roxicodone administered, meds crushed and given with applesauce, lungs are clear in upper barn[place], dim in bases, resp even and unlabored, no cough noted at this time, currently on 3 liters which is her home baseline, hrr, tele in place running sr per monitor, see strip, trace edema noted to b/l le, incont of urine, purwick in place and briefs, skin has protective mepilex to coccyx, right arm in contracted, left arm is moveable but tremors, she is currently bedrest, iv to left wrist that is leaking and slightly puffy, will remove, new one placed to left bicep, call light in reach.
--- NOTE | 2022-06-25 15:48 | NUR ---
medicated for headache pain, family in room, has been turned, bathed and changed. call light in reach.
--- NOTE | 2022-06-25 18:37 | NUR ---
no acute changes this shift, she has freq headaches, pain meds are effective, no further changes, sleeping this evening, call light in reach.
[2022-06-26 05:16] LABS: BASOPHILS ABSOLUTE AUTO 0.02 K/mm3 (0.00-0.23); BASOPHILS PERCENT AUTO 0 % (0-2); EOSINOPHILS ABSOLUTE AUTO 0.22 K/mm3 (0.00-0.68); EOSINOPHILS PERCENT AUTO 3 % (0-6); Hematocrit 29.2 % (33.0-51.0); Hemoglobin 9.2 g/dL (11.5-16.0); IMMATURE GRAN ABSOLUTE AUTO 0.21 K/mm3 (0.00-0.10); IMMATURE GRAN PERCENT AUTO 3 % (0-1); LYMPHOCYTES ABSOLUTE AUTO 1.37 K/mm3 (0.84-5.20); LYMPHOCYTES PERCENT AUTO 18 % (21-46); MONOCYTES ABSOLUTE AUTO 0.51 K/mm3 (0.16-1.47); MONOCYTES PERCENT AUTO 7 % (4-13); Mean Corpuscular HGB 29.4 pg (26.0-34.0); Mean Corpuscular HGB Conc 31.5 g/dL (31.5-36.5); Mean Corpuscular Volume 93 fL (80-100); NEUTROPHILS ABSOLUTE AUTO 5.48 K/mm3 (1.96-9.15); NEUTROPHILS PERCENT AUTO 70 % (41-73); Platelet Count 290 K/mm3 (150-400); RDW Coefficient Variation 14.5 % (11.7-14.2); RDW Standard Deviation 48.6 fL (35.1-46.3); Red Blood Cell Count 3.13 M/mm3 (3.80-5.20); White Blood Cell Count 7.81 K/mm3 (4.00-11.30)
--- NOTE | 2022-06-26 05:33 | NUR ---
SHIFT SUMMARY NO ACUTE CHANGES TO REPORT OVERNIGHT, PT HAS SLEPT T/O THE NIGHT. MEDICATED X1 FOR PAIN WITH EFFECT. ANTIBIOTICS CONTINUED. TAKES SIPS OF NECTAR THICK JUICE HERE AND THERE. ABLE TO MAKE NEEDS KNOWN USING HAND JESTERS. WILL MAKE INCOMPREHENSIBLE SOUNDS WHEN SHE NEEDS HELP, DOES NOT USE CALL LIGHT. VITALS STABLE, BED IN LOWEST POSITION, CALL LIGHT WITHIN REACH.
[2022-06-26 05:52] LABS: Albumin, Blood 2.2 g/dL (3.4-5.0); Albumin/Globulin Ratio 0.6 (0.8-1.8); Bilirubin, Total 0.3 mg/dL (0.1-1.0); Bun/Creatinine Ratio 12.1 (12.0-20.0); Calcium, Blood 8.6 mg/dL (8.5-10.1); Creatinine, Blood 0.41 mg/dL (0.40-1.00); Globulin, Blood 3.9 g/dL (2.2-4.0); Potassium, Blood 3.3 mmol/L (3.5-5.5); Total Protein, Blood 6.1 g/dL (6.4-8.2)
--- NOTE | 2022-06-26 08:03 | NUR ---
pt laying in bed awake calm, looks a bit better than yesterday, states she slept good, does gesture to her head reporting h/a, gave pain medication for that, states she feels some better, lungs are dim t/o, resp even and unlabored, no cough noted, currently on 4 liters 02 via n/c, frequently pulls o2 off, hrr, tele in place running sr in the 70's, distant sounds, trace edema noted to b/l le, ppp+2, cap refill <3sec vs stable, afebrile, iv site to left bicep, flushes well, btx4, hypoactive, briefs in place for incont, purwick in place draining clear yellow urine, skin has excoriation to buttocks, both cheeks, mepilex in place, able to move left arm, and has a tremor, right arm is contracted, is bed rest, will turn and keep dry, able to make needs known. call light in reach. call light in reach.
--- NOTE | 2022-06-26 17:54 | NUR ---
pt has had a h/a throughout the day, her family reports she has them at home, medicated three times for pain, turned and changed throughout the day, new mepilex placed on buttocks, call light in reach.
--- NOTE | 2022-06-27 06:36 | NUR ---
COMMUNICATION IS DIFFICULT, PATIENT ATTEMPTS TO SPEAK BUT NOT DISCERNABLE EXCEPT FOR THE WORD "NO". VSS ON 4L, CONTINUE TO WEAN DOWN TO BASELINE OF 3L NC. POOR INTAKE THIS SHIFT BUT REQUESTING FOOD, DOES NOT WANT PUREE FOODS. REFUSED MALE CAREGIVER FOR PERICARE. NO SIGNIFICANT CHANGES. AWAITING HOME CAREGIVER FOR DISCHARGE. GLUTEAL MEPILEX IN PLACE, OFFLOADING PRESSURE Q2.
--- NOTE | 2022-06-27 17:50 | NUR ---
SHIFT SUMMARY FAMILY AT BEDSIDE ON AND OFF THROUGH THE DAY. CAN BE DIFFICULT TO COMMUNICATE WITH PT DUE TO INABILITY TO VERBALIZE NEEDS. ABLE TO UNDERSTAND MOST OF PTS NEEDS BUT OCC DIFFICULT COME TO A RESOLUTION. REMOVES O2 FREQUENTLY AND IT NEEDS REPLACED. REPORTED PAIN 2X TODAY AND MEDICATED WITH EFFECT. PLANS FOR PT TO DISCHARGE HOME TOMORROW AT 11 BY BARBIE.
--- NOTE | 2022-06-28 06:23 | NUR ---
NONVERBAL, COMMUNICATES WITH GESTURES, NODDING, ETC. TOLERATES CRUSHED PILLS IN APPLESAUCE. VSS ON 3L O2. OFFLOADING PRESSURE, SACRAL/GLUTEAL MEPILEX REPLACED. PUREWICK IN PLACE AND PATENT. LAST BM ON 06/28. NO SIGNIFICANT CHANGES NOTED FROM REPORT. PENDING DISCHARGE TODAY.
[2022-06-28] MEDS ORDERED: VISBIOME 112.51 EACH PO (10:41)
[2022-06-28] MEDS ORDERED: BACL10 PO (10:41)
--- NOTE | 2022-06-28 11:15 | NUR ---
DISCHARGE INSTRUCTIONS COMPLETED AND DISCUSSED WITH PTS SISTER EXPRESSING UNDERSTANDING AND PT MAKING NOISES IMPLYING SHE UNDERSTANDS. NO SCRIPTS NEEDED TO SEND TO [facility] BUT WAS SENT ANYHOW. TO [facility] VIA [employer]. PHOTOS TAKEN OF BUTTOCKS PRIOR TO LEAVING.
== END 2022-06-28 11:24 | disposition home health service (06) | DRG 871 ==
LOC: ER 01:36 → PCU 04:30 → MEDS 06-23 14:29
PROVIDERS: Family Medicine; Internal Medicine; Student in an Organized Health Care Education/Training Program; ADMIT Internal Medicine
PROC: 3E02340 Introduction of Influenza Vaccine into Muscle, Percutaneous Approach (ICD-10-PCS; principal; 2022-06-19)
PROC: 5A0935A Assistance with Respiratory Ventilation, Less than 24 Consecutive Hours, High Flow/Velocity Cannula (ICD-10-PCS; 2022-06-19)
PROC: 3E03329 Introduction of Other Anti-infective into Peripheral Vein, Percutaneous Approach (ICD-10-PCS; 2022-06-19)
DX: A41.9 Sepsis, unspecified organism (principal); G93.41 Metabolic encephalopathy; J69.0 Pneumonitis due to inhalation of food and vomit; J96.21 Acute and chronic respiratory failure with hypoxia; J96.22 Acute and chronic respiratory failure with hypercapnia; I51.81 Takotsubo syndrome; I69.351 Hemiplegia and hemiparesis following cerebral infarction affecting right dominant side; I50.22 Chronic systolic (congestive) heart failure; E44.0 Moderate protein-calorie malnutrition; Z68.1 Body mass index [BMI] 19.9 or less, adult; I47.29 Other ventricular tachycardia; Z66 Do not resuscitate; Z23 Encounter for immunization; F41.8 Other specified anxiety disorders; G40.909 Epilepsy, unspecified, not intractable, without status epilepticus; R13.10 Dysphagia, unspecified; I95.9 Hypotension, unspecified; G89.29 Other chronic pain; G20 Parkinson's disease; F02.80 Dementia in other diseases classified elsewhere, unspecified severity, without behavioral disturbance, psychotic disturbance, mood disturbance, and anxiety; I69.320 Aphasia following cerebral infarction; Z87.19 Personal history of other diseases of the digestive system; Z90.710 Acquired absence of both cervix and uterus; Z98.890 Other specified postprocedural states; Z98.891 History of uterine scar from previous surgery; Z90.10 Acquired absence of unspecified breast and nipple; Z87.891 Personal history of nicotine dependence; Z88.2 Allergy status to sulfonamides; Z88.6 Allergy status to analgesic agent; Z88.8 Allergy status to other drugs, medicaments and biological substances; Z79.82 Long term (current) use of aspirin; Z79.899 Other long term (current) drug therapy
CPT/HCPCS: 31720; 36415; 51701; 70450; 71045; 80048; 80053; 80069; 80202; 81001; 82803; 83605; 83735; 83880; 84145; 84443; 84484; 85025; 85610; 85730; 87040; 90686; 92526; 92610; 93005; 93010; 93306; 94760; 94762; 96365-59; 96367; 96375-59; 99285-25; A9270; G0480; J0282; J0456; J0692; J0696; J1650; J1953; J3370; J3475; J3480; J7030; J7050; J7120

== ENCOUNTER 2022-06-29 18:54 | Emergency (ER) | payer OTHER ==
[~2022-06-29] VITALS: Ht 165.1 cm; Wt 63.5 kg
[~2022-06-29 18:54] MED LIST changes: +VISBIOME 112.51 EACH PO; +XANAX0.25 MG PO
[2022-06-29 20:40] LABS: BASOPHILS ABSOLUTE AUTO 0.02 K/mm3 (0.00-0.23); BASOPHILS PERCENT AUTO 0 % (0-2); EOSINOPHILS ABSOLUTE AUTO 0.15 K/mm3 (0.00-0.68); EOSINOPHILS PERCENT AUTO 2 % (0-6); Hematocrit 34.7 % (33.0-51.0); Hemoglobin 11.5 g/dL (11.5-16.0); IMMATURE GRAN ABSOLUTE AUTO 0.08 K/mm3 (0.00-0.10); IMMATURE GRAN PERCENT AUTO 1 % (0-1); LYMPHOCYTES ABSOLUTE AUTO 1.91 K/mm3 (0.84-5.20); LYMPHOCYTES PERCENT AUTO 23 % (21-46); MONOCYTES PERCENT AUTO 7 % (4-13); Mean Corpuscular HGB 30.2 pg (26.0-34.0); Mean Corpuscular HGB Conc 33.1 g/dL (31.5-36.5); Mean Corpuscular Volume 91 fL (80-100); NEUTROPHILS ABSOLUTE AUTO 5.45 K/mm3 (1.96-9.15); NEUTROPHILS PERCENT AUTO 66 % (41-73); RDW Coefficient Variation 14.6 % (11.7-14.2); RDW Standard Deviation 48.9 fL (35.1-46.3); Red Blood Cell Count 3.81 M/mm3 (3.80-5.20); White Blood Cell Count 8.21 K/mm3 (4.00-11.30)
[2022-06-29 20:47] LABS: Albumin/Globulin Ratio 0.7 (0.8-1.8); Bilirubin, Total 0.2 mg/dL (0.1-1.0); Bun/Creatinine Ratio 25.4 (12.0-20.0); Calcium, Blood 9.2 mg/dL (8.5-10.1); Creatinine, Blood 0.32 mg/dL (0.40-1.00); Globulin, Blood 4.3 g/dL (2.2-4.0); Potassium, Blood 4.3 mmol/L (3.5-5.5); Total Protein, Blood 7.3 g/dL (6.4-8.2)
[2022-06-29 21:00] LABS: Mean Platelet Volume 8.9 fL (9.1-12.4)
[2022-06-29 21:04] LABS: Platelet Count 392 K/mm3 (150-400)
== END 2022-06-30 09:02 | disposition home or self-care (01) ==
LOC: ER 18:54
PROVIDERS: Emergency Medicine
DX: R20.2 Paresthesia of skin (principal); G40.909 Epilepsy, unspecified, not intractable, without status epilepticus; G20 Parkinson's disease; Z88.2 Allergy status to sulfonamides; Z88.8 Allergy status to other drugs, medicaments and biological substances; Z88.5 Allergy status to narcotic agent; Z79.899 Other long term (current) drug therapy
CPT/HCPCS: 36415; 70450; 71045; 80053; 84484; 85025; 96365; 99285-25; A9270; J1953

== ENCOUNTER 2022-07-22 19:52 | Observation (INO) | payer OTHER ==
[~2022-07-22] VITALS: Ht 162.6 cm; Wt 60.0 kg
[2022-07-22] MEDS ORDERED: HYDROCODONE-AC1 EA19 PO (20:44)
[2022-07-22] MEDS ORDERED: ALPRAZOLAM0.5 M1 PO (20:44)
[2022-07-22] MEDS ORDERED: IPRAT-ALBUT 0.5-3 ML INH (20:45)
[2022-07-22 21:23] LABS: Albumin, Blood 2.8 g/dL (3.4-5.0); Albumin/Globulin Ratio 0.8 (0.8-1.8); Bilirubin, Total 0.2 mg/dL (0.1-1.0); Bun/Creatinine Ratio 37.5 (12.0-20.0); Calcium, Blood 8.3 mg/dL (8.5-10.1); Creatinine, Blood 0.35 mg/dL (0.40-1.00); Globulin, Blood 3.4 g/dL (2.2-4.0); Magnesium, Blood 2.2 mg/dL (1.6-2.4); Potassium, Blood 4.2 mmol/L (3.5-5.5); Total Protein, Blood 6.2 g/dL (6.4-8.2)
[2022-07-22 21:34] LABS: BASOPHILS ABSOLUTE AUTO 0.02 K/mm3 (0.00-0.23); BASOPHILS PERCENT AUTO 0 % (0-2); EOSINOPHILS ABSOLUTE AUTO 0.16 K/mm3 (0.00-0.68); EOSINOPHILS PERCENT AUTO 2 % (0-6); Hematocrit 32.6 % (33.0-51.0); Hemoglobin 10.5 g/dL (11.5-16.0); IMMATURE GRAN ABSOLUTE AUTO 0.04 K/mm3 (0.00-0.10); IMMATURE GRAN PERCENT AUTO 1 % (0-1); LYMPHOCYTES ABSOLUTE AUTO 1.56 K/mm3 (0.84-5.20); LYMPHOCYTES PERCENT AUTO 22 % (21-46); MONOCYTES ABSOLUTE AUTO 0.57 K/mm3 (0.16-1.47); MONOCYTES PERCENT AUTO 8 % (4-13); Mean Corpuscular HGB 29.7 pg (26.0-34.0); Mean Corpuscular HGB Conc 32.2 g/dL (31.5-36.5); Mean Corpuscular Volume 92 fL (80-100); Mean Platelet Volume 9.9 fL (9.1-12.4); NEUTROPHILS ABSOLUTE AUTO 4.74 K/mm3 (1.96-9.15); NEUTROPHILS PERCENT AUTO 67 % (41-73); Platelet Count 200 K/mm3 (150-400); RDW Coefficient Variation 13.7 % (11.7-14.2); RDW Standard Deviation 46.4 fL (35.1-46.3); Red Blood Cell Count 3.54 M/mm3 (3.80-5.20); White Blood Cell Count 7.09 K/mm3 (4.00-11.30)
[2022-07-23] MEDS ORDERED: DIVA125 PO (02:04)
[2022-07-23 03:56] LABS: Hematocrit 31.1 % (33.0-51.0)
[2022-07-23 04:25] LABS: Alanine Aminotransfer (ALT/SGP <6 U/L (12-78); Albumin, Blood 2.6 g/dL (3.4-5.0); Albumin/Globulin Ratio 0.8 (0.8-1.8); Alk Phos 50 U/L (50-136); Anion Gap 3 mmol/L (6-16); Aspartate Aminotrans (AST/SGOT 11 U/L (12-37); Bilirubin, Total 0.2 mg/dL (0.1-1.0); Blood Urea Nitrogen 12 mg/dL (8-24); Bun/Creatinine Ratio 33.7 (12.0-20.0); CO2, Blood 31 mmol/L (21-32); Calcium, Blood 8.3 mg/dL (8.5-10.1); Chloride, Blood 105 mmol/L (98-108); Creatinine, Blood 0.36 mg/dL (0.40-1.00); Globulin, Blood 3.3 g/dL (2.2-4.0); Glomerular Filtration Rate 113 (60-); Glucose, Blood 95 mg/dL (70-99); Potassium, Blood 3.9 mmol/L (3.5-5.5); Sodium, Blood 139 mmol/L (136-145); Total Protein, Blood 5.9 g/dL (6.4-8.2)
--- NOTE | 2022-07-23 06:30 | NUR ---
SHIFT SUMMARY PATIENT APHASIC DIFFICUTLY IN DETERMING NEEDS, R SIDE DEFICIT FROM PREVIOUS CVA. BED BOUND WITH EXCORIATION TO VILLA ANAL/BILAT BUTTOCKS AREA. PUREWICK IN PLACE.
--- NOTE | 2022-07-23 08:30 | NUR ---
INITIAL ASSESSMENT PATIENT APHASIC; HX OF CVA. NO MOVEMENT NOTED TO R SIDE. PATIENT CAN BARELY WIGGLE LEFT TOES. PATIENT IS ABLE TO USE L ARM. PATIENT ABLE TO NOD AND SHAKE HEAD TO ANSWER YES AND NO QUESTIONS. PATIENT ONLY NODDED APPROPRIATELY TO HER NAME. FLAT AFFECT NOTED. DYSHPAGIA AT BASELINE. CONTRACTURES NOTED TO R HAND AND BILAT FEET. PATIENT BEDBOUND AT BASELINE. PATIENT AFEBRILE. LUNGS DIMINISHED. PATIENT SATTING 90% AND GREATER ON 2 L NC; HOME DOSE. PATIENT IN SR, HR IN THE 70S. BP 114/76. PATIENT INCONTINENT OF URINE AND STOOL. PUREWICK IN PLACE. DATE OF LAST BM UNKNOWN. BUTTOCKS EXCORIATED. SKIN PALE. REDDENED BREAST FOLDS NOTED. NS INFUSING AT 100 MLS/ HOUR. BED LOW, CALL LIGHT IN REACH. WILL CONTINUE TO MONITOR PATIENT FREQUENTLY THROUGHOUT SHIFT.
--- NOTE | 2022-07-23 10:29 | NUR ---
PATIENT COMPLAINED OF HEADACHE AND CHEST PAIN. DR. MCINTOSH CALLED. EKG PERFORMED. DR. MCINTOSH TO ROOM. DR. PEDRAZA ORDERED. INSTRUCTED TO GIVE PRN TYLENOL. PATIENT AT CT AT THIS TIME.
--- NOTE | 2022-07-23 12:14 | NUR ---
PATIENT AFEBRILE. NO COMPLAINTS AT THIS TIME. HEADACHE RESOLVED AFTER PRN FENTANYL EARLIER. HR IN THE 80S. BP 93/61. POWDER TO BREAST FOLDS AND BUTTOCKS. NO OTHER ACUTE CHANGES TO NOTE ON AT THIS TIME. WILL CONTINUE TO MONITOR.
--- NOTE | 2022-07-23 15:45 | NUR ---
pT IS A 62 Y/O FEMALE, HX CVA WITH R HEMIPLEGIA AND NON-VERBAL AT BASELINE. ADMITTED WITH SOB, BUTLER, CP AND VTACH. VTACH RESOLVED IN ED, ADMITTED FOR MONITORING. ASSKED TP CONCULT WITH PT AND SISTER ANOUT CODE STATUS, PT IS CURRENTLY FULL CODE. CALL PLACED TO PT POA & SISTERELISSA-UPDATE GIVENTO HER ON WHY PT IS HERE IN THE HOSPITAL AND HOW SHE IS DOING TODAY. SHE WOULD LIKE TO BE UPDATED WITH RESULTS OF HEAD CT AND EKG, FAIZA SPENCER RN. WE DISCUSSED CODE STATUS, [facility] REPORTS THAT THEY HAVE TALKED ABOUT THIS AND STATES, "SHE WANTS TO BE A FULL CODE WITH FULL TREATMENT UNLESS NOTHING ELSE CAN BE DONE." ZOE FILLED OUT WITH PT SISTERTHA ON THE PHONE TO REFELCT PT WISHES. WILL HAVE THE SIGN AND KEEP A COPY IN HER CHART FOR OUR RECORDS. SHE ASKED ABOUT A DC PLAN SHE HAS CAREGIVER SHE NEEDS TO COORDINATE WITH. ADVISED THERE IS NO DC PLAN OF TODAY, WILL KEEP HER UPDATED MORE INFORMATION IS AVAIALABLE. SHE IS APPRECIATIVE OF THIS PLAN. PALLIATIVE CARE WILL CONTINUE TO FOLLOW.
--- NOTE | 2022-07-23 16:19 | NUR ---
UPDATED PT RN OF FULL CODE STATUS, POLST FILLED OUT AND IS ON THE WHITE BOARD FOR PROVIDER TO SIGN AND THAT PT SISTER WOULD LIKE AN UPDATE WITH RESULTS OF EKG AND CT WHEN THEY ARE AVAIABLE. CALL PLACED TO DR ZARAGOZA THAT A NEW POLST WAS FILLED OUT WITH PT SISTER VIA PHONE, WHO IS HER POA. PT TO REMAIN A FULL CODE WITH FULL TREATMENT. POLST IS PLACED ON WHITE BOARD FOR HIS SIGNATURE.
--- NOTE | 2022-07-23 17:05 | NUR ---
PATIENT AFEBRILE. HR 70S TO 80S. SBP IN THE LOW 100S. NO ACUTE CHANGES TO NOTE ON AT THIS TIME. WILL CONTINUE TO MONITOR.
--- NOTE | 2022-07-23 18:09 | NUR ---
SHIFT SUMMARY PATIENT REMAINED ORIENTED TO SELF AND ABLE TO ANSWER YES AND NO QUESTIONS WITH SHAKING AND NODDING OF HEAD. PATIENT REMAINED AFEBRILE. PATIENT RECEIVED PRN TYLENOL, NORCO X 2, AND FENTANYL FOR COMPLAINTS OF HEADACHE. PATIENT TOLERATED RELIEF ONLY WITH FENTANYL. LUNGS REMAINED DIM. PATIENT DECREASED FROM 2 L NC TO 1 L NC AND REMAINED SATTING 90% AND GREATER. PATIENT REMAINED IN SR, HR 70S TO 80S. SBP 90S TO 1-TEENS. NO BM THIS SHIFT. SWALLOW EVAL PERFORMED THIS SHIFT. PATIENT PERFORMED WELL PER SPEECH THERAPIST BUT COMMUNICATED THAT SHE DID NOT FEEL SHE WAS SWALLOWING RIGHT BY POINTING TO THE L SIDE OF HER THROAT. SPEECH STATED THEY WILL TRY TO PERFORM BARIUM SWALLOW ON MONDAY BUT TO GIVE MEDS CRUSHED IN APPLESAUCE UNTIL THEN. PUREWICK REMAINED IN PLACE. 700 MLS OF DARK YELLOW URINE OUT THIS SHIFT. MICONAZOLE POWDER ORDERED THIS SHIFT FOR PATIENT BREAST FOLDS AND REDDENED/ MOIST BUTTOCKS. NS INFUSING AT 100 MLS/ HOUR. PATIENT DECLINED BEDBATH THIS SHIFT. HEAD CT PERFORMED THIS SHIFT. BED LOW, CALL LIGHT IN REACH. REPORT WILL BE GIVEN TO ASSUMING DOG AND CAT FOOD COOK NURSE SHORTLY.
--- NOTE | 2022-07-24 05:00 | NUR ---
END OF SHIFT PT RESTED WELL, VSS, ADEQUATE UO, AFEBRILE, NO OTHER ISSUES, ALL NEEDS MET
[2022-07-24] MEDS ORDERED: ACET325 PO (10:27)
--- NOTE | 2022-07-24 11:26 | NUR ---
DISCHARGED AND WAITING FOR RIDE HOME. OK TO GIVE ALL MEDS PO ORDERED PER DR. ANTONY, GAVE GROUND IN APPLESAUCE.
== END 2022-07-24 17:05 | disposition home or self-care (01) ==
LOC: ER 19:52 → PCU 23:43
PROVIDERS: Family Medicine; Student in an Organized Health Care Education/Training Program; ADMIT Internal Medicine
DX: I47.29 Other ventricular tachycardia (principal); R07.89 Other chest pain; D64.9 Anemia, unspecified; G20 Parkinson's disease; F32.A Depression, unspecified; F41.9 Anxiety disorder, unspecified; Z88.5 Allergy status to narcotic agent; Z91.041 Radiographic dye allergy status; Z87.891 Personal history of nicotine dependence; Z86.73 Personal history of transient ischemic attack (TIA), and cerebral infarction without residual deficits
CPT/HCPCS: 36415; 70450; 71045; 80053; 82947; 83735; 83880; 84484; 85014; 85018; 85025; 92610; 93005; 93010; 94760; 94762; 96365; 99285-25; A9270; J1650; J3010; J3475; J7030

== ENCOUNTER 2022-08-18 16:46 | Emergency (ER) | payer OTHER ==
[~2022-08-18] VITALS: Ht 154.9 cm; Wt 77.1 kg
[~2022-08-18 16:46] MED LIST changes: +ACET325 PO; +ALPRAZOLAM0.5 M1 PO; +DIVA125 PO; +HYDROCODONE-AC1 EA19 PO
[2022-08-18 19:18] VITALS: BP 104/68
== END 2022-08-18 20:02 | disposition home or self-care (01) ==
LOC: ER 16:46
DX: G43.909 Migraine, unspecified, not intractable, without status migrainosus (principal); Z88.2 Allergy status to sulfonamides; Z88.8 Allergy status to other drugs, medicaments and biological substances; Z88.5 Allergy status to narcotic agent; Z79.899 Other long term (current) drug therapy; G20 Parkinson's disease; Z87.891 Personal history of nicotine dependence
CPT/HCPCS: 36415; 70450; 96374; 96375; 99284-25; A9270; J1200; J2765; J7030

== ENCOUNTER 2022-10-24 15:17 | Emergency (ER) | payer OTHER ==
[~2022-10-24] VITALS: Ht 162.6 cm; Wt 63.5 kg
[~2022-10-24 15:17] MED LIST changes: +Cephalexin250 MG/5 M PO; +Macrobid 100 M100 MG PO
[2022-10-24 15:40] LABS: BASOPHILS ABSOLUTE AUTO 0.02 K/mm3 (0.00-0.23); BASOPHILS PERCENT AUTO 0 % (0-2); EOSINOPHILS ABSOLUTE AUTO 0.07 K/mm3 (0.00-0.68); EOSINOPHILS PERCENT AUTO 1 % (0-6); IMMATURE GRAN ABSOLUTE AUTO 0.06 K/mm3 (0.00-0.10); IMMATURE GRAN PERCENT AUTO 1 % (0-1); LYMPHOCYTES PERCENT AUTO 15 % (21-46); MONOCYTES ABSOLUTE AUTO 0.94 K/mm3 (0.16-1.47); MONOCYTES PERCENT AUTO 8 % (4-13); Mean Corpuscular HGB 28.9 pg (26.0-34.0); Mean Corpuscular HGB Conc 33.3 g/dL (31.5-36.5); Mean Corpuscular Volume 87 fL (80-100); Mean Platelet Volume 10.4 fL (9.1-12.4); NEUTROPHILS ABSOLUTE AUTO 8.87 K/mm3 (1.96-9.15); NEUTROPHILS PERCENT AUTO 76 % (41-73); Platelet Count 223 K/mm3 (150-400); RDW Coefficient Variation 14.5 % (11.7-14.2); RDW Standard Deviation 45.8 fL (35.1-46.3); Red Blood Cell Count 4.15 M/mm3 (3.80-5.20); White Blood Cell Count 11.66 K/mm3 (4.00-11.30)
[2022-10-24 15:57] LABS: Prothrombin Time Results 10.5 Sec (9.7-11.5)
[2022-10-24 16:11] LABS: Albumin, Blood 3.5 g/dL (3.4-5.0); Bilirubin, Total 0.3 mg/dL (0.1-1.0); Bun/Creatinine Ratio 19.1 (12.0-20.0); Calcium, Blood 8.8 mg/dL (8.5-10.1); Creatinine, Blood 0.47 mg/dL (0.40-1.00); Globulin, Blood 3.5 g/dL (2.2-4.0); Potassium, Blood 3.2 mmol/L (3.5-5.5)
[2022-10-24 16:21] LABS: Source, Urine Straight Cath
[2022-10-24 16:36] LABS: Appearance, Urine Clear (Clear); Bilirubin, Urine Neg (Neg); Blood, Urine 2+ (Neg); Color, Urine Yellow (P-Yellow); Glucose Qualitative, Urine Neg (Neg); Ketones, Urine 1+ (Neg); Leukocyte Esterase, Urine Neg (Neg); Nitrite, Urine Neg (Neg); Protein, Urine Neg (Neg); Specific Gravity, Urine 1.015 (1.003-1.022); Urobilinogen, Urine NORM (Normal)
[2022-10-24 17:07] LABS: Bacteria Many /hpf; Squamous Epithelial Cells Few /hpf (Few)
[2022-10-24] MEDS ORDERED: TRAM50 PO (17:29)
[2022-10-24 17:35] LABS: U Amphetamine Screen Not Detected; U Barbituate Screen Not Detected; U Benzodiazapine Screen DETECTED; U Buprenorphine Screen Not Detected; U Cannabinoids Screen Not Detected; U Cocaine Screen Not Detected; U Methadone Screen Not Detected; U Methamphetamine Screen Not Detected; U Opiates Screen DETECTED; U Oxycodone Screen Not Detected; U Phencyclidine Screen Not Detected; U Propoxyphene Screen Not Detected
[2022-10-24 18:00] VITALS: BP 135/82
[2022-10-25] MEDS ORDERED: ALPR.25 PO (02:55)
== END 2022-10-24 18:10 | disposition home or self-care (01) ==
LOC: ER 15:17
PROVIDERS: Emergency Medicine
DX: S00.83XA Contusion of other part of head, initial encounter (principal); S80.212A Abrasion, left knee, initial encounter; W05.0XXA Fall from non-moving wheelchair, initial encounter; Z88.2 Allergy status to sulfonamides; Z88.8 Allergy status to other drugs, medicaments and biological substances; Z88.5 Allergy status to narcotic agent; Z79.899 Other long term (current) drug therapy; G20 Parkinson's disease; Z87.891 Personal history of nicotine dependence
CPT/HCPCS: 51701; 70450; 71045; 72125; 73502; 80053; 81001; 83605; 83690; 85025; 85610; 86850; 86900; 86901; 87077; 87086; 87186; 90471; 90714; 96374-59; 96376-59; 99285-25; A9270; J2270

== ENCOUNTER 2022-10-24 20:15 | Inpatient (IN) | payer OTHER ==
[~2022-10-24] VITALS: Ht 162.6 cm; Wt 64.4 kg
[~2022-10-24 20:15] MED LIST changes: +TRAM50 PO
[2022-10-25 01:04] VITALS: BP 112/80
--- NOTE | 2022-10-25 01:45 | NUR ---
PT ARRIVED FORM ED ON [facility] ABD WAS TRANSFERED FROM [facility] TO BED WITH 4 PERSONS AND SLIDE SHEET. PT ALERT AND HAS EXSPRESSIVE APHASIA. PT WILL NOD OR THUMBS UP OR DOWN, PT ALSO WILL SAY NO EVEN THOUGHT IT MIGHT MEAN YES. PT HAS RIGHT SIDED WEAKNESS AND NOT ABLE TO MOVE RIGHT ARM AND LEG WELL PTS RIGH HAND CONTRACTED. PT HAS RED ABRASION ESCORIATION AREA TO RIGHT SIDE OF BUTTOCKS 1 OPEN AREA APPLYED TANNER BARIOR CREAM . PT CONT/INCONT. PT ALSO HAS ABRASION/HEMATOMA TO LEFT SIDE OF FORE HEAD FROM FALL TODAY APPLYED TRIPLE ANTIBIOTIC AND A DRG AND PLACED A ICE PACK TO HEAD. PT ALSO MEDICATED FOR A BUTLER WITH TYLENOL. PT HAS K RIDDER INFUSING AT THIS TIME. CALL LIGHT IN REACH OF LEFT HAND.
[2022-10-25] MEDS ORDERED: ALPR.25 PO (02:55)
[2022-10-25 04:44] VITALS: BP 128/69
--- NOTE | 2022-10-25 04:56 | NUR ---
SHIFT SUMMERY, PT RESTING IN BED, PT APPEARS TO BE COMFORTABLE PT WAS ASLEEP BUT AWOKE EASILY WHEN SPOKEN TO. PT MOTIONED UNDERSTANDING OF NOT HAVING TECHNICAL SALES SUPPORT MANAGER OR OTHER IGNITION DEVICE IN ROOM FOR SAFTY. PT NON SMOKER BUT IS ON 3L PER NC. CALL LIGHT IN REACH
[2022-10-25 05:40] LABS: BASOPHILS ABSOLUTE AUTO 0.02 K/mm3 (0.00-0.23); BASOPHILS PERCENT AUTO 0 % (0-2); EOSINOPHILS ABSOLUTE AUTO 0.09 K/mm3 (0.00-0.68); EOSINOPHILS PERCENT AUTO 1 % (0-6); Hemoglobin 11.5 g/dL (11.5-16.0); IMMATURE GRAN ABSOLUTE AUTO 0.04 K/mm3 (0.00-0.10); IMMATURE GRAN PERCENT AUTO 1 % (0-1); LYMPHOCYTES ABSOLUTE AUTO 1.46 K/mm3 (0.84-5.20); LYMPHOCYTES PERCENT AUTO 18 % (21-46); MONOCYTES ABSOLUTE AUTO 0.87 K/mm3 (0.16-1.47); MONOCYTES PERCENT AUTO 11 % (4-13); Mean Corpuscular HGB Conc 31.9 g/dL (31.5-36.5); Mean Corpuscular Volume 91 fL (80-100); Mean Platelet Volume 10.9 fL (9.1-12.4); NEUTROPHILS ABSOLUTE AUTO 5.81 K/mm3 (1.96-9.15); NEUTROPHILS PERCENT AUTO 70 % (41-73); Platelet Count 172 K/mm3 (150-400); RDW Coefficient Variation 14.5 % (11.7-14.2); RDW Standard Deviation 48.1 fL (35.1-46.3); Red Blood Cell Count 3.96 M/mm3 (3.80-5.20); White Blood Cell Count 8.29 K/mm3 (4.00-11.30)
[2022-10-25 06:10] LABS: Albumin, Blood 3.3 g/dL (3.4-5.0); Albumin/Globulin Ratio 1.1 (0.8-1.8); Bilirubin, Total 0.3 mg/dL (0.1-1.0); Bun/Creatinine Ratio 14.9 (12.0-20.0); Calcium, Blood 8.5 mg/dL (8.5-10.1); Creatinine, Blood 0.54 mg/dL (0.40-1.00); Potassium, Blood 4.1 mmol/L (3.5-5.5); Total Protein, Blood 6.3 g/dL (6.4-8.2)
[2022-10-25 07:26] VITALS: BP 110/69
--- NOTE | 2022-10-25 09:33 | NUR ---
PT'S DAUGHTER REPORTED PT APPEARED TO BE HAVING A STROKE WHILE TRYING BE FED. DAUGHTER REMOVED FOOD. PT WAS ABLE TO LOOK AND MAKE EYE CONTACT WITH THIS ENGINEERING DOCUMENT CONTROL CLERK WHEN ACCESSED. PT HAS BEEN HARD TO UNDERSTAND AND MUMBLES WHEN A RESPONSE IS ASKED OF HER. DAUGHTER STATES THIS IS NOT HER NORM. CHARGE NURSE WAS ALSO NOTFIED. WILL CONTINUE TO MONITOR.
[2022-10-25 15:04] VITALS: BP 118/51
--- NOTE | 2022-10-25 16:09 | NUR ---
PT AOX2 AND HAS BEEN COOPERATIVE OF CARE. PT DOING WELL WITH MEDS CRUSHED IN APPLE SAUCE. PT TREATED FOR HEAD PAIN PER EMAR. PT CONTINUES TO WANT TO SLEEP LONG STRETCHES, BUT WILL ROUSE WHEN HER NAME IS CALLED. PT IS TURNED EVERY COUPLE HOURS AND CAN MAKE NEEDS KNOWN WITH SOME EFFORT SHE IS HARD TO UNDERSTAND WITH VERY GARBLED SPEACH. PT IS VERY WEAK OVERALL. WILL CONTINUE TO MONITOR. EDUCATION WAS GIVEN TO FAMILY AND PT ON RISK OF INJURY WITH ANY IGNITABLE ITEMS WITH O2 PRESENT IN ROOMS WHILE STAYING AT THE HOSPITAL.
[2022-10-25 20:19] VITALS: BP 105/64
[2022-10-26 04:04] VITALS: BP 137/64
[2022-10-26 05:05] LABS: BASOPHILS ABSOLUTE AUTO 0.02 K/mm3 (0.00-0.23); BASOPHILS PERCENT AUTO 0 % (0-2); EOSINOPHILS ABSOLUTE AUTO 0.08 K/mm3 (0.00-0.68); EOSINOPHILS PERCENT AUTO 1 % (0-6); Hematocrit 30.5 % (33.0-51.0); Hemoglobin 9.9 g/dL (11.5-16.0); IMMATURE GRAN ABSOLUTE AUTO 0.02 K/mm3 (0.00-0.10); IMMATURE GRAN PERCENT AUTO 0 % (0-1); LYMPHOCYTES ABSOLUTE AUTO 1.01 K/mm3 (0.84-5.20); LYMPHOCYTES PERCENT AUTO 18 % (21-46); MONOCYTES ABSOLUTE AUTO 0.44 K/mm3 (0.16-1.47); MONOCYTES PERCENT AUTO 8 % (4-13); Mean Corpuscular HGB 29.1 pg (26.0-34.0); Mean Corpuscular HGB Conc 32.5 g/dL (31.5-36.5); Mean Corpuscular Volume 90 fL (80-100); Mean Platelet Volume 10.3 fL (9.1-12.4); NEUTROPHILS ABSOLUTE AUTO 4.13 K/mm3 (1.96-9.15); NEUTROPHILS PERCENT AUTO 72 % (41-73); Platelet Count 170 K/mm3 (150-400); RDW Coefficient Variation 14.7 % (11.7-14.2); RDW Standard Deviation 47.9 fL (35.1-46.3)
--- NOTE | 2022-10-26 05:43 | NUR ---
REDUCATED PT ABOUT O2 FIRE SAFETY PT MOTIONED UNDERSTANDING.
[2022-10-26 05:57] LABS: Albumin/Globulin Ratio 1.1 (0.8-1.8); Bilirubin, Total 0.3 mg/dL (0.1-1.0); Bun/Creatinine Ratio 20.4 (12.0-20.0); Calcium, Blood 8.4 mg/dL (8.5-10.1); Creatinine, Blood 0.49 mg/dL (0.40-1.00); Globulin, Blood 2.8 g/dL (2.2-4.0); Potassium, Blood 3.8 mmol/L (3.5-5.5); Total Protein, Blood 5.8 g/dL (6.4-8.2)
[2022-10-26 07:07] VITALS: BP 118/73
--- NOTE | 2022-10-26 16:32 | NUR ---
PT DISCHARGED FROM THE UNIT. IV REMOVED. DISCHARGE INSTRUCTIONS REVIEWED AND SENT WITH PT. LEFT VIA WHEEL CHAIR WITH TRANSPROT.
== END 2022-10-26 15:55 | disposition home or self-care (01) | DRG 101 ==
LOC: ER 20:15 → MEDS 20:16 → ENPENDDIS 10-26 09:13 → MEDS 10-26 15:55
PROVIDERS: Family Medicine; ADMIT Internal Medicine
PROC: 3E033XZ Introduction of Vasopressor into Peripheral Vein, Percutaneous Approach (ICD-10-PCS; principal; 2022-10-25)
DX: G40.909 Epilepsy, unspecified, not intractable, without status epilepticus (principal); S00.03XA Contusion of scalp, initial encounter; Z51.5 Encounter for palliative care; F41.8 Other specified anxiety disorders; E87.6 Hypokalemia; G20 Parkinson's disease; I50.9 Heart failure, unspecified; G89.4 Chronic pain syndrome; Z99.3 Dependence on wheelchair; Z87.19 Personal history of other diseases of the digestive system; W18.30XA Fall on same level, unspecified, initial encounter
CPT/HCPCS: 36415; 70450; 80053; 83735; 83880; 85025; 94760; 96365; 96366; 96375; 99285-25; A9270; G0378; J1650; J1953; J2405; J3480; J7030; J7050

== ENCOUNTER 2022-12-12 19:57 | Inpatient (IN) | payer OTHER ==
[~2022-12-12] VITALS: Ht 162.6 cm; Wt 52.0 kg
[2022-12-12 20:29] LABS: BASOPHILS ABSOLUTE AUTO 0.03 K/mm3 (0.00-0.23); BASOPHILS PERCENT AUTO 0 % (0-2); EOSINOPHILS ABSOLUTE AUTO 0.13 K/mm3 (0.00-0.68); EOSINOPHILS PERCENT AUTO 1 % (0-6); Hematocrit 36.7 % (33.0-51.0); Hemoglobin 12.3 g/dL (11.5-16.0); IMMATURE GRAN ABSOLUTE AUTO 0.03 K/mm3 (0.00-0.10); IMMATURE GRAN PERCENT AUTO 0 % (0-1); LYMPHOCYTES ABSOLUTE AUTO 1.84 K/mm3 (0.84-5.20); LYMPHOCYTES PERCENT AUTO 18 % (21-46); MONOCYTES ABSOLUTE AUTO 0.91 K/mm3 (0.16-1.47); MONOCYTES PERCENT AUTO 9 % (4-13); Mean Corpuscular HGB 29.9 pg (26.0-34.0); Mean Corpuscular HGB Conc 33.5 g/dL (31.5-36.5); Mean Corpuscular Volume 89 fL (80-100); Mean Platelet Volume 10.2 fL (9.1-12.4); NEUTROPHILS PERCENT AUTO 71 % (41-73); Platelet Count 225 K/mm3 (150-400); RDW Coefficient Variation 13.5 % (11.7-14.2); RDW Standard Deviation 43.9 fL (35.1-46.3); Red Blood Cell Count 4.12 M/mm3 (3.80-5.20); White Blood Cell Count 10.14 K/mm3 (4.00-11.30)
[2022-12-12 20:44] LABS: Alanine Aminotransfer (ALT/SGP 8 U/L (12-78); Albumin, Blood 3.7 g/dL (3.4-5.0); Albumin/Globulin Ratio 1.1 (0.8-1.8); Alk Phos 78 U/L (50-136); Anion Gap 5 mmol/L (6-16); Aspartate Aminotrans (AST/SGOT 13 U/L (12-37); Bilirubin, Total 0.4 mg/dL (0.1-1.0); Blood Urea Nitrogen 5 mg/dL (8-24); Bun/Creatinine Ratio 12.6 (12.0-20.0); CO2, Blood 28 mmol/L (21-32); Calcium, Blood 8.9 mg/dL (8.5-10.1); Chloride, Blood 105 mmol/L (98-108); Globulin, Blood 3.4 g/dL (2.2-4.0); Glomerular Filtration Rate 110 (60-); Glucose, Blood 110 mg/dL (70-99); Magnesium, Blood 2.1 mg/dL (1.6-2.4); Potassium, Blood 2.7 mmol/L (3.5-5.5); Sodium, Blood 138 mmol/L (136-145); Total Protein, Blood 7.1 g/dL (6.4-8.2)
[2022-12-12 22:31] LABS: Valproic Acid 47.6 ug/mL (50.0-100.0)
[2022-12-13] VITALS (37 sets, daily range): BP systolic 80–141; BP diastolic 54–118
[2022-12-13 03:34] LABS: BASOPHILS ABSOLUTE AUTO 0.02 K/mm3 (0.00-0.23); BASOPHILS PERCENT AUTO 0 % (0-2); EOSINOPHILS ABSOLUTE AUTO 0.11 K/mm3 (0.00-0.68); EOSINOPHILS PERCENT AUTO 2 % (0-6); Hematocrit 34.2 % (33.0-51.0); Hemoglobin 11.3 g/dL (11.5-16.0); IMMATURE GRAN ABSOLUTE AUTO 0.03 K/mm3 (0.00-0.10); IMMATURE GRAN PERCENT AUTO 0 % (0-1); LYMPHOCYTES ABSOLUTE AUTO 1.32 K/mm3 (0.84-5.20); LYMPHOCYTES PERCENT AUTO 19 % (21-46); MONOCYTES ABSOLUTE AUTO 0.67 K/mm3 (0.16-1.47); MONOCYTES PERCENT AUTO 10 % (4-13); Mean Corpuscular HGB 30.3 pg (26.0-34.0); Mean Corpuscular Volume 92 fL (80-100); Mean Platelet Volume 10.1 fL (9.1-12.4); NEUTROPHILS ABSOLUTE AUTO 4.87 K/mm3 (1.96-9.15); NEUTROPHILS PERCENT AUTO 69 % (41-73); Platelet Count 184 K/mm3 (150-400); RDW Coefficient Variation 13.7 % (11.7-14.2); RDW Standard Deviation 46.2 fL (35.1-46.3); Red Blood Cell Count 3.73 M/mm3 (3.80-5.20); White Blood Cell Count 7.02 K/mm3 (4.00-11.30)
[2022-12-13 04:00] LABS: Albumin/Globulin Ratio 1.1 (0.8-1.8); Bilirubin, Total 0.4 mg/dL (0.1-1.0); Bun/Creatinine Ratio 8.4 (12.0-20.0); Creatinine, Blood 0.48 mg/dL (0.40-1.00); Globulin, Blood 2.8 g/dL (2.2-4.0); Total Protein, Blood 5.8 g/dL (6.4-8.2)
--- NOTE | 2022-12-13 05:53 | NUR ---
ARRIVAL TO ICU PT ARRIVED TO ICU 7 VIA ED BARBIE. PT ALERT, AND TRACKING NURSE. NONVERBAL AT BASELINE. ABLE TO NOD HEAD YES/NO TO SOME QUESTIONS. ABLE TO SQUEEZE LEFT HAND ON COMMAND. R HAND APPEARS TO BE CONTRACTED. MOVES FEET WITH LIGHT STIMULATION. FOOT DROP BILATERALLY. PRESSURE SORE NOTED ON COCCYX. BRUISING ON LEFT ARM IN SHAPE OF HAND. PICTURES IN CHART. PT INCONT OF URINE. BRIEF IN PLACE. NO SEIZURE ACTIVITY NOTED SINCE ARRIVAL TO ICU. SEIZURE PADS ON BED. DAUGHTER RAMU CALLED FOR UPDATE THIS AM. RAMU STATES THAT PT NORMALLY CAN NOD HEAD YES AND SHAKE HEAD NO. PT AT [facility] CAN SAY THE WORD NO WELL. RAMU ALSO STATED THAT PT NORMALLY HAS SEIZURES IN THE AFTERNOON. WILL REPORT OFF TO ONCOMING RN.
[2022-12-13 07:23] LABS: Anion Gap 5 mmol/L (6-16); Blood Urea Nitrogen 4 mg/dL (8-24); Bun/Creatinine Ratio 8.5 (12.0-20.0); CO2, Blood 25 mmol/L (21-32); Calcium, Blood 7.9 mg/dL (8.5-10.1); Chloride, Blood 118 mmol/L (98-108); Creatinine, Blood 0.47 mg/dL (0.40-1.00); Glomerular Filtration Rate 106 (60-); Glucose, Blood 91 mg/dL (70-99); Phosphorus, Blood 3.5 mg/dL (2.5-4.9); Sodium, Blood 148 mmol/L (136-145)
--- NOTE | 2022-12-13 07:47 | NUR ---
CARE OF PT ASSUMED AT 0700. DR RODRIGUES AT BEDSIDE. PT MINIMALLY AROUSABLE. DOES NOT OPEN EYES, NOT FOLLOWING COMMANDS. MOANS WHEN HEAD HELD UP AND WHILE ATTEMPTING TO OPEN EYES; PT SQUEEZES EYES SHUT; PUPILS APPEAR TO BE UNEVEN, RIGHT LARGER THAN LEFT; AGAIN VERY DIFFICULT TO ASSESS. POSSIBLY 8/7MM. BOTH EYES APPEAR SLUGGISH, RIGHT POSSIBLY MORE THAN LEFT. PT WITHDRAWLS LEFT ARM AND BILAT FEET TO NOXIOUS STIMULI. DR RODRIGUES REVIEWING CASE WITH NEUROLOGIST AT [facility].
--- NOTE | 2022-12-13 08:57 | NUR ---
CTA OF HEAD AND NECK COMPLETE. PT WOKE UP AFTER PROCEDURE. NODDING HEAD APPROPRIATELY, ABLE TO COMMUNICATE VIA GESTURES THAT SHE WANTED GLASSES. PT ABLE TO FOLLOW SIMPLE COMMANDS. PT C/O HEADACHE, DENIES PAIN IN OTHER AREAS. PT C/O BEING COLD, WARM BLANKETS GIVEN. IMAGES TO BE PUSHED UP TO [place] PER DR RODRIGUES, DR RODRIGUES CALLED AND UPDATED; HE WILL BE BY TO REASSESS PT.
--- NOTE | 2022-12-13 09:52 | NUR ---
PT'S DAUGHTER IN TO SEE PT, UPDATE GIVEN, DAUGHTER FEELS THAT SHE IS NOT YET AT BASELINE. DAUGHTER LEFT NUMBER FOR UPDATES. EEG TO BE COMPLETED SHORTLY.
--- NOTE | 2022-12-13 11:46 | NUR ---
EEG COMPLETE, PT MORE AWAKE, SQUINTING EYES; PT COMMUNICATES THAT SHE HAS A HEADACHE. DR RODRIGUES CALLED, MS TYLENOL ORDERED. SWALLOW EVAL W SPEECH ORDERED. MRI PLANNED FOR AROUND 1200.
--- NOTE | 2022-12-13 12:32 | NUR ---
PT INCONTINENT OF XLARGE AMT OF URINE. CHG BEDBATH COMPLETE, PUREWICK PLACED. DURING BATH PT GUARDING RIGHT ARM, UNABLE TO MOVE SHOULDER, PAIN W LIGHT TOUCH TO FOREARM, POSSIBLY SOME SLIGHT SWELLING. SKIN TEAR WAS NOTED TO RIGHT ELBOW ON ADMIT. PT HAS FALLIN OUT OF BED LAST NIGHT PER DAUGHTER. DAUGHTER CALLED. PT CAN USUALLY MOVE RIGHT ARM WITHOUT PAIN. DAUGHTER IS NOT SURE WHAT SIDE SHE FELL ON SHE IS HOME ALONE AT NIGHT. THERE IS A CAMERA WHICH DAUGHTER REVIEWED. PROCESS DESIGN CHEMICAL ENGINEER CALLED WITH CONCERNS. PT MAY REQUIRE CARE AT NIGHT. DR RODRIGUES CALLED AND UPDATED. XR OF RIGHT ARM ORDERED. TYLENOL HI GIVEN.
--- NOTE | 2022-12-13 15:55 | NUR ---
MRI COMPLETE, PT TOLERATED PROCEDURE WELL. PT VERY DROWSY BUT DOES AROUSE W CARE, ABLE TO FOLLOW SIMPLE COMMANDS AND COMMUNICATE W GESTURES, ABLE TO NOD HEAD APPROPRIATELY TO QUESTIONS. NO SEIZURE ACTIVITY NOTED THIS SHIFT.
--- NOTE | 2022-12-13 17:30 | NUR ---
ASSUMED CARE REPORT RECIEVED AT 1700. PT IS RESTING QUIETLY IN BED. SALINE LOCKED. VITAL SIGNS STABLE. PT ON 2L O2 NC. WILL CONTINUE TO MONITOR AND REPORT OFF TO NOC SHIFT RN.
[2022-12-14] VITALS (15 sets, daily range): BP systolic 95–141; BP diastolic 62–96
[2022-12-14 03:08] LABS: BASOPHILS ABSOLUTE AUTO 0.01 K/mm3 (0.00-0.23); BASOPHILS PERCENT AUTO 0 % (0-2); EOSINOPHILS PERCENT AUTO 2 % (0-6); Hematocrit 32.3 % (33.0-51.0); Hemoglobin 10.3 g/dL (11.5-16.0); IMMATURE GRAN ABSOLUTE AUTO 0.02 K/mm3 (0.00-0.10); IMMATURE GRAN PERCENT AUTO 0 % (0-1); LYMPHOCYTES ABSOLUTE AUTO 0.81 K/mm3 (0.84-5.20); LYMPHOCYTES PERCENT AUTO 18 % (21-46); MONOCYTES ABSOLUTE AUTO 0.37 K/mm3 (0.16-1.47); MONOCYTES PERCENT AUTO 8 % (4-13); Mean Corpuscular HGB 29.5 pg (26.0-34.0); Mean Corpuscular HGB Conc 31.9 g/dL (31.5-36.5); Mean Corpuscular Volume 93 fL (80-100); NEUTROPHILS ABSOLUTE AUTO 3.18 K/mm3 (1.96-9.15); NEUTROPHILS PERCENT AUTO 71 % (41-73); Platelet Count 176 K/mm3 (150-400); Red Blood Cell Count 3.49 M/mm3 (3.80-5.20); White Blood Cell Count 4.49 K/mm3 (4.00-11.30)
[2022-12-14 03:30] LABS: Albumin, Blood 2.8 g/dL (3.4-5.0); Bilirubin, Total 0.4 mg/dL (0.1-1.0); Bun/Creatinine Ratio 11.5 (12.0-20.0); Calcium, Blood 7.9 mg/dL (8.5-10.1); Creatinine, Blood 0.44 mg/dL (0.40-1.00); Globulin, Blood 2.7 g/dL (2.2-4.0); Phosphorus, Blood 2.9 mg/dL (2.5-4.9); Potassium, Blood 3.4 mmol/L (3.5-5.5); Total Protein, Blood 5.5 g/dL (6.4-8.2)
--- NOTE | 2022-12-14 05:37 | NUR ---
SHIFT SUMMARY PT WAS SLEEPING FOR THE FIRST HALF OF THE SHIFT, AROUSABLE TO VERBAL STIMULI. PT ALERT AT THIS TIME, ABLE TO ANSWER QUESTIONS WITH YES/NO, FOLLOWS COMMANDS. LUNG SOUNDS CLEAR BILATERALLY, PT ON 2L VIA NC. OXYGEN SATURATION >95% THROUGHOUT SHIFT. PT IN SR THROUGHOUT SHIFT. PUREWICK IN PLACE DRAINING YELLOW URINE TO SUCTION.
--- NOTE | 2022-12-14 08:40 | NUR ---
AT 0838 PATIENT STARING STRAIGHT AHEAD AND NOT RESPONDING TO NURSE. PATIENT RESPONDING AND FOLLOWING NURSE COMMANDS UP TO THIS POINT. MACHINIST INSTRUCTORISABELA NOTIFIED AND PRN ATIVAN GRABBED IN CASE WAS SEIZURE. LASTED AROUND A MINUTE AND A HALF. DR. RODRIGUES CALLED AND INFORMED. NO ATIVAN TO BE GIVEN PER DR. RODRIGUES NO LONGER STARING STRAIGHT AHEAD AND IS BACK TO HER BASELINE. DR. RODRIGUES STATES HE WILL BE TO ROOM SHORTLY.
--- NOTE | 2022-12-14 08:40 | NUR ---
INITIAL ASSESSMENT PATIENT AWAKE UPON ENTERING ROOM. PATIENT MOSTLY NON-VERBAL BUT DOES MAKE SOME SOUNDS AND IS ABLE TO SAY YES AND NO FOR THE MOST PART. SOMETIMES PATIENT SAYS "NO" WHEN SHAKING HEAD YES SO UNABLE TO SAY WITH 100% CERTAINTY BUT IT APPEARS THAT PATIENT IS ALERT AND ORIENTED X 4. PATIENT AFEBRILE. PATIENT RECEIVED PRN TYLENOL AT END OF NEUROPSYCHOLOGY SERVICE DIRECTOR FOR COMPLAINTS OF HEADACHE; PATIENT REPORTS PAIN IS IMPROVED. PATIENT ONLY ABLE TO MOVE LEFT ARM; ALL OTHER EXTREMITIES FLACCID. TREMORS NOTED TO LEFT ARM AND HAND ONLY. R ARM AND HAND CONTRACTED. BILAT FOOT DROP NOTED. PATIENT DECREASED FROM 2 L NC TO RA AND REMAINS SATTING 90% AND GREATER. PATIENT IN SR TO ST, HR 90S TO LOW 100S. SBP IN THE 140S. BP LOOKS HIGHER THAN IS AT TIMES BECAUSE OF TREMORS IN L ARM. 1+ EDEMA NOTED TO R HAND AND ARM. DATE OF LAST BM UNKNOWN. PUREWICK AND ATTENDS IN PLACE FOR INCONTINENCE. URINE ILEANA IN COLOR. SKIN PALE AND COOL. SCATTERED BRUISES NOTED. SKIN TEAR NOTED TO R ARM. EXCORATIONS TO VILLA AREA AND UNDER BREASTS. COCCYX REDDENED. BED LOW, CALL LIGHT IN REACH.
--- NOTE | 2022-12-14 11:00 | NUR ---
PATIENT TAKEN TO BARIUM SWALLOW.
--- NOTE | 2022-12-14 11:38 | NUR ---
PATIENT BACK FROM BARIUM SWALLOW.
--- NOTE | 2022-12-14 13:50 | NUR ---
SHIFT SUMMMARY PATIENT REMAINED MOSTLY NON-VERBAL BUT ABLE TO COMMUNICATE NEEDS. PATIENT APPEARED ALERT AND ORIENTED X 4. PATIENT REMAINED AFEBRILE. PATIENT COMPLAINED OF HEADACHE EARLY IN THE MORNING BUT REPORTED RELIEF AFTER PAYROLL SERVICES ANALYST GAVE HER TYLENOL. NO OTHER COMPLAINTS THIS SHIFT. PATIENT HAD A 1 TO 2 MINUTE EPISODE THIS AM WHERE SHE WAS STARING STRAIGHT AHEAD AND NOT RESPONDING, BUT THEN CAME TO AND LOOKED AT NURSE AND STARTED REPONDING AGAIN. DR. RODRIGUES WAS NOTIFIED AND CAME TO UNIT. PO KEPPRA CHANGED TO IV. ALSO CHANGED OTHER SEIZURE MEDS TO LIQUID FORM. PATIENT REMAINED SATTING 90% AND GREATER ON RA. PATIENT REMAINED IN SR TO ST, HR 70S TO LOW 100S. SBP LOW 100S TO 140S. NO BM THIS SHIFT. PATIENT HAD MODIFIED BARIUM SWALLOW AFTER SPEECH THERAPY EVALUATED PATIENT THIS AM. RESULTS NOT KNOWN AT TIME OF THIS NOTE. DR. RODRIGUES STATED THAT PATIENT COULD HAVE PUREED FOODS, NECTAR THICK LIQUIDS AND MEDS CRUSHED IN APPLESAUCE HE HAD IN DEPTH CONVERSATION WITH PATIENT AND SHE CONTINUES TO WANT TO EAT AND ACCEPTS RISK OF ASPIRATING. PUREWICK REMAINED IN PLACE, EXCEPT WHEN TAKEN TO BARIUM SWALLOW. MINIMAL URINE OUTPUT THIS SHIFT. DR. RODRIGUES AWARE. NO CHANGES TO SKIN NOTED. PATIENT TURNED Q2H. 1/2 NS REMAINS INFUSING AT 50 MLS/ HOUR. PATIENT RECEIVED 40 MEQ KCL FOR AM POTASSIUM OF 3.4. PATIENT'S DAUGHTER ARRIVED AND PATIENT TRANSFERRED TO PCU, ROOM 11. ALL BELONGINGS SENT WITH PATIENT. DAUGHTER FOLLOWED TO PCU. DAUGHTER CALLED AND INFORMED PATIENT'S SISTER, ELISSA, OF TRANSFER WELL. TRANSFER COMPLETE.
--- NOTE | 2022-12-14 13:50 | NUR ---
ARRIVAL TO UNIT PT TRANSFERRED FROM ICU TO UNIT VIA HOSPITAL BED. TRANSFERRED TO NEW BED VIA SLIDER SHEET. DAUGHTER AT BEDSIDE. PT AOX4, ABLE TO COMMUNICATE NEEDS NONVERBALLY W/ YES AND NO QUESTIONS. ORIENTED TO RM & UNIT. IVF INFUSING PER ORDER. PT COMPLAINING OF HEADACHE, 12/01. PLAN TO MEDICATE PER EMAR. DAUGHTER AT BEDSIDE, RECEPTIVE TO EDUCATION. ATTENDS C/D/I, PUREWICK NOW IN PLACE. CALL LIGHT WITHIN REACH.
[2022-12-14] MEDS ORDERED: ACET325 PO (14:55)
[2022-12-14] MEDS ORDERED: ALPR.5 PO (14:56)
[2022-12-14] MEDS ORDERED: BUSP5 PO (14:57)
[2022-12-14] MEDS ORDERED: BACL10 PO (14:57)
[2022-12-14] MEDS ORDERED: CARBLEV25 SL (14:58)
[2022-12-14] MEDS ORDERED: BUTALB-ACETAMI1 EAC7 PO (14:59)
[2022-12-14] MEDS ORDERED: CELEXA40 M1 PO (14:59)
[2022-12-14] MEDS ORDERED: DICLOFENAC SODI50 GM TOP (15:00)
[2022-12-14] MEDS ORDERED: DIVA125 PO (15:01)
[2022-12-14] MEDS ORDERED: DOCU100 PO (15:01)
[2022-12-14] MEDS ORDERED: FAMO20 PO (15:02)
[2022-12-14] MEDS ORDERED: FURO20 PO (15:02)
[2022-12-14] MEDS ORDERED: IPRAT-ALBUT 0.5-3 ML (15:03)
[2022-12-14] MEDS ORDERED: KEPPRA100 MG/1 M PO (15:05)
[2022-12-14] MEDS ORDERED: NITR100CA PO (15:05)
[2022-12-14] MEDS ORDERED: METO25 PO (15:06)
[2022-12-14] MEDS ORDERED: MIRALAX17 GM PO (15:07)
[2022-12-14] MEDS ORDERED: NYSTRIT TOP (15:07)
[2022-12-14] MEDS ORDERED: TOPI25 PO (15:08)
--- NOTE | 2022-12-14 18:05 | NUR ---
SHIFT SUMMARY NO ACUTE CHANGES SINCE TRANSFER TO UNIT FROM ICU. VSS. AOX4, AROUSABLE TO VERBAL STIMULI. PT DEMONSTRATING USE OF CALL LIGHT, ABLE TO NONVERBALLY COMMUNICATE NEEDS W/ YES AND NO QUESTIONS. IVF INFUSING ORDERED, 150ML OF URINE PRODUCED THIS SHIFT. DR. RODRIGUES AWARE OF DECREASED URINARY OUTPUT. PUREWICK DEVICE IN PLACE. NO BM THIS SHIFT. PAIN MANAGED W/ HOME DOSE OF NORCO. PT TOLERATING PUREE DIET ORDERED W/ FEEDING ASSIST FROM STAFF. PT COOPERATIVE W/ REGULAR REPOSITIONING AND CARE. WILL REPORT TO ONCOMING RN.
[2022-12-15 03:47] VITALS: BP 120/75
[2022-12-15 04:14] LABS: BASOPHILS ABSOLUTE AUTO 0.02 K/mm3 (0.00-0.23); BASOPHILS PERCENT AUTO 1 % (0-2); EOSINOPHILS ABSOLUTE AUTO 0.16 K/mm3 (0.00-0.68); EOSINOPHILS PERCENT AUTO 4 % (0-6); Hematocrit 31.9 % (33.0-51.0); Hemoglobin 10.3 g/dL (11.5-16.0); IMMATURE GRAN ABSOLUTE AUTO 0.02 K/mm3 (0.00-0.10); IMMATURE GRAN PERCENT AUTO 1 % (0-1); LYMPHOCYTES ABSOLUTE AUTO 1.02 K/mm3 (0.84-5.20); LYMPHOCYTES PERCENT AUTO 26 % (21-46); MONOCYTES ABSOLUTE AUTO 0.45 K/mm3 (0.16-1.47); MONOCYTES PERCENT AUTO 12 % (4-13); Mean Corpuscular HGB 29.8 pg (26.0-34.0); Mean Corpuscular HGB Conc 32.3 g/dL (31.5-36.5); Mean Corpuscular Volume 92 fL (80-100); Mean Platelet Volume 10.1 fL (9.1-12.4); NEUTROPHILS ABSOLUTE AUTO 2.25 K/mm3 (1.96-9.15); NEUTROPHILS PERCENT AUTO 57 % (41-73); Platelet Count 183 K/mm3 (150-400); RDW Coefficient Variation 13.9 % (11.7-14.2); RDW Standard Deviation 46.6 fL (35.1-46.3); Red Blood Cell Count 3.46 M/mm3 (3.80-5.20); White Blood Cell Count 3.92 K/mm3 (4.00-11.30)
--- NOTE | 2022-12-15 04:19 | NUR ---
SHIFT SUMMARY PT A&Ox4, NONVERBAL AT BASELINE, COMMUNICATES APPROPRIATELY BY NODDING HEAD YES OR NO AND SAYING SOME SHORT WORDS WHILE MAKING GESTURES. BP STABLE, SINUS 80's, DENIES CP/PRESSURE. SpO2> 92% RA, DENIES SOB. INCONTINENT OF URINE, PUREWICK IN PLACE. NO BM THIS SHIFT. NO SEIZURE LIKE ACTIVITY THIS SHIFT. NO OTHER EVENTS, WILL REPORT TO ONCOMING RN.
[2022-12-15 04:35] LABS: Albumin, Blood 2.8 g/dL (3.4-5.0); Bilirubin, Total 0.3 mg/dL (0.1-1.0); Creatinine, Blood 0.43 mg/dL (0.40-1.00); Globulin, Blood 2.7 g/dL (2.2-4.0); Magnesium, Blood 1.9 mg/dL (1.6-2.4); Phosphorus, Blood 2.8 mg/dL (2.5-4.9); Potassium, Blood 3.2 mmol/L (3.5-5.5); Total Protein, Blood 5.5 g/dL (6.4-8.2)
[2022-12-15 07:34] VITALS: BP 105/71
--- NOTE | 2022-12-15 09:43 | NUR ---
ASSUMPTION OF CARE ASSUMED CARE OF PATIENT AT 0700. VSS. PT AOX4, ABLE TO COMMUNICATE THROUGH SIMPLE, YES AND NO QUESTIONS. EASILY AROUSABLE TO VERBAL STIMULI. PT REPORTING HEAD PAIN, MEDICATED W/ TYLENOL. PT STATED THAT PAIN IS IMPROVING. TOLERATING PO INTAKE W/ FEED ASSIST. IV MAGNESIUM INFUSED THIS MORNING. IV POTASSIUM CHLORIDE CURRENTLY INFUSING. WILL START IV POTASSIUM PHOSPHATE WHEN IV POTASSIUM CHLORIDE COMPLETE INSTRUCTED BY PHARMACY. PT COOPERATIVE W/ MORNING CARE & REPOSITIONING. CALL LIGHT WITHIN REACH.
[2022-12-15 11:16] VITALS: BP 118/68
[2022-12-15 15:28] VITALS: BP 131/83
--- NOTE | 2022-12-15 17:01 | NUR ---
SHIFT SUMMARY NO ACUTE CHANGES THIS SHIFT. VSS. STATUS CHANGED TO MEDICAL W/ TELE. PT PLEASANT, COOPERATIVE W/ REPOSITIONING & CARE. BEDBATH PERFORMED. PUREWICK IN PLACE, DRAINING YELLOW URINE. NO BM THIS SHIFT, ATTENDS IN PLACE. WORKED WITH PHYSICAL AND OCCUPATIONAL THERAPY THIS MORNING. PT IS ABLE TO DANGLE AT SIDE OF BED & IS A PIVOT TRANSFER TO CHAIR W/ 2 PERSON MAX ASSIST FROM STAFF. PT COMPLAINING OF A HEADACHE T/O THE SHIFT, MEDICATED W/ TYLENOL THIS MORNING AND NORCO THIS AFTERNOON. PT EXPRESSED SOME RELIEF, HAS BEEN SLEEPING OFF AND ON T/O SHIFT. [facility] ORDER FOR HOME DOSE OF FIORICET, AWAITING TO ADMINISTER PT IS CURRENTLY SLEEPING. TOLERATING PO INTAKE, LACK OF APPETITE NOTED. FREQUENTLY OFFERED THICKENED LIQUIDS AND APPLESAUCE T/O SHIFT. DAUGHTER VISITED THIS AFTERNOON, RECEPTIVE TO PT NEEDS AND EDUCATION. CALL LIGHT WITHIN REACH. WILL REPORT TO ONCOMING RN.
[2022-12-15 20:10] VITALS: BP 136/89
[2022-12-16 04:07] LABS: BASOPHILS ABSOLUTE AUTO 0.02 K/mm3 (0.00-0.23); BASOPHILS PERCENT AUTO 1 % (0-2); EOSINOPHILS PERCENT AUTO 5 % (0-6); Hematocrit 33.4 % (33.0-51.0); Hemoglobin 11.2 g/dL (11.5-16.0); IMMATURE GRAN ABSOLUTE AUTO 0.03 K/mm3 (0.00-0.10); IMMATURE GRAN PERCENT AUTO 1 % (0-1); LYMPHOCYTES PERCENT AUTO 23 % (21-46); MONOCYTES ABSOLUTE AUTO 0.45 K/mm3 (0.16-1.47); MONOCYTES PERCENT AUTO 12 % (4-13); Mean Corpuscular HGB 30.3 pg (26.0-34.0); Mean Corpuscular HGB Conc 33.5 g/dL (31.5-36.5); Mean Corpuscular Volume 90 fL (80-100); Mean Platelet Volume 9.9 fL (9.1-12.4); NEUTROPHILS ABSOLUTE AUTO 2.31 K/mm3 (1.96-9.15); NEUTROPHILS PERCENT AUTO 59 % (41-73); Platelet Count 185 K/mm3 (150-400); RDW Coefficient Variation 13.8 % (11.7-14.2); RDW Standard Deviation 44.7 fL (35.1-46.3); White Blood Cell Count 3.91 K/mm3 (4.00-11.30)
[2022-12-16 04:09] VITALS: BP 125/70
[2022-12-16 04:34] LABS: Albumin, Blood 3.1 g/dL (3.4-5.0); Anion Gap 6 mmol/L (6-16); Blood Urea Nitrogen 2 mg/dL (8-24); Bun/Creatinine Ratio 4.9 (12.0-20.0); CO2, Blood 28 mmol/L (21-32); Calcium, Blood 8.2 mg/dL (8.5-10.1); Chloride, Blood 109 mmol/L (98-108); Creatinine, Blood 0.41 mg/dL (0.40-1.00); Glomerular Filtration Rate 110 (60-); Glucose, Blood 93 mg/dL (70-99); Magnesium, Blood 2.3 mg/dL (1.6-2.4); Phosphorus, Blood 3.7 mg/dL (2.5-4.9); Potassium, Blood 3.7 mmol/L (3.5-5.5); Sodium, Blood 143 mmol/L (136-145)
--- NOTE | 2022-12-16 05:46 | NUR ---
shift summary NO ACUTE CHANGES THIS SHIFT. VSS. AXO TO BASELINE WITH BASELINE R SIDED CVA DEFICITS. PT COMMUNICATING THROUGH POINTING AND YES/NO. IN SR. ON RA. BEING REPOSITIONED OFTEN WITH STAFF. PT STARTED SHIFT WITH HEADACHE THAT PROVED HARD TO TREAT BUT EVENTUALLY SUBSIDED POST MULTIPLE FIORICET DOSES. PT HAS BEEN RESTING POST ADDRESSING HEADACHE. USES CALL LIGHT AND IS MAKING NEEDS KNOW. BED ALARM ON.
[2022-12-16 08:05] VITALS: BP 119/76
--- NOTE | 2022-12-16 09:35 | NUR ---
PT C/O ABDOMINAL PAIN SHE WAS MEDICATED WITH ZOFRAN AND HAD NO RELIEF SO DR. YO REQUESTED THAT WE GIVE HER 25MCG FENTYNAL. PT DROWSY BUT RESPONDS TO VERBAL STIMULI. NO COMPLAINTS OF PAIN AFTER RECIEVING THE MEDICATION.
[2022-12-16 12:21] VITALS: BP 125/85
[2022-12-16 15:36] VITALS: BP 123/87
--- NOTE | 2022-12-16 17:40 | NUR ---
SHIFT SUMMARY PT IS ALERT AND FOLLOWS COMMANDS. SHE CAN SAY YES AND NO OR NOD HER HEAD YES/NO. PT HAS FULL ROM WITH HER RUE BUT HAS SEVERE UNCONTROLLED TREMORS. HER LUE IS CHRONICALLY CONTRACTED. PT IS NON-VERBAL BUT CAN CALL FOR HER NEEDS WITH THE CALL LIGHT. SHE HAS HAD COMPLAINTS OF A HEADACHE ON AND OFF TODAY. THE PT'S DAUGHTER STATED THAT THE PT HAS CHRONIC HEADACHES. SHE IS BEDREST, Q2 TURN, INC, AND HAS A PW DRAINING TO GRAVITY. VS ARE STABLE. PT IS Impulsiv.
[2022-12-16 20:00] VITALS: BP 125/85
[2022-12-17 03:43] VITALS: BP 95/75
[2022-12-17 04:09] LABS: Albumin, Blood 3.1 g/dL (3.4-5.0); Anion Gap 5 mmol/L (6-16); Blood Urea Nitrogen 3 mg/dL (8-24); Bun/Creatinine Ratio 6.8 (12.0-20.0); CO2, Blood 28 mmol/L (21-32); Calcium, Blood 8.4 mg/dL (8.5-10.1); Chloride, Blood 107 mmol/L (98-108); Creatinine, Blood 0.44 mg/dL (0.40-1.00); Glomerular Filtration Rate 108 (60-); Glucose, Blood 92 mg/dL (70-99); Phosphorus, Blood 3.5 mg/dL (2.5-4.9); Potassium, Blood 3.9 mmol/L (3.5-5.5); Sodium, Blood 140 mmol/L (136-145)
--- NOTE | 2022-12-17 04:36 | NUR ---
SHIFT SUMMARY PT REMAINS A&O X4; ABLE TO ANSWER Y/N QUESTIONS AND POINT TO VERBALIZE NEEDS. VSS. NO ACUTE CHANGES OVERNIGHT. PT C/O HEADACHE, MEDICATION PER EMAR W/ADEQUATE RELIEF. PT DENIES CP OR PRESSURE. DENIES SOB. NO SEIZURE ACTIVITY. PT REPOSITIONED Q2. PW IN PLACE TO SUCTION; CLEAR, YELLOW OUTPUT. NO BM THIS SHIFT. PT RESTED WELL THROUGHOUT SHIFT. WILL UPDATE ONCOMING RN.
[2022-12-17 07:51] VITALS: BP 181/95
[2022-12-17 08:32] VITALS: BP 98/69
[2022-12-17 15:11] VITALS: BP 109/82
--- NOTE | 2022-12-17 15:19 | NUR ---
MORNING SUMMARY PT IS ALERT AND CAN ANSWER YES/NO QUESTIONS. SHE NODS HER HEAD YES/NO, AND CAN ONLY VERBALIZE THOSE TWO WORDS. WE HAVE A COMMUNICATION BOARD IN THE ROOM BUT THE PT HAS NOT BEEN WANTING TO USE IT. SHE MAKES HAND GESTURES TO HELP INDICATE HER NEEDS. SHE WAS COMPLAINING OF BELLY DISCOMFORT THIS AFTERNOON SO SL ZOFRAN WAS OBTAINED. PT HAS NOT C/O AN UPSET STOMACH SINCE MEDICATED. SHE IS BEDREST, WHICH IS HER BASELINE, AND A Q2 TURN. SHE HAS A PURWICK SET UP TO SUCTION, AND IS INC OF BOWEL. HER TELE BOX WAS D/C'D BUT SHE WAS SR W/ NO EVENTS. PT HAS SEVERE TREMORS AND CAUSES DIFFICULT BP READINGS. SHE IS ON RA AND SP02 >93%. SHE IS STILL HAVING HEADACHES AND IS BEING MEDICATED WITH THE FIORCET. PT AND FAMILY EDUCATED ON FIRE IGNITION RISK AND SAFETY.
--- NOTE | 2022-12-17 16:26 | NUR ---
RN NOTE MS FARIAS WAS TRANSFERED FORM PCU TO MEDICAL FLOOR AT ~1555HRS. TRANSFERED ON A BED ON ROOM AIR. SHE IS AWAKE AND RESPONSIVE, REPEATING "NO". SHE WAS ORIENTATED TO HER NEW ROOM. PUREWICK APPLIED. RED AND TENDER TO PERINEAL AREA, ESPECIALLY TENDER WHEN BARRIER CREAM APPLIED. MEPLIEX ON BUTTOCK AND RIGHT ELBOW WAS CHANGED PRIOR TO TRANSFER AND LEFT UNDISTURBED. RIGHT ARM CONTRACTED, SHE IS ABLE TO MOVE HER LEFT ARM AND SHE HAS HER MOBILE PHONE. TURNED ONTO RIGHT SIDE. SCDS ON. SZ PADS IN PLACE. BED LOW, BED ALARM ON, CALL LIGHT IN REACH.
[2022-12-17 20:38] VITALS: BP 111/87
[2022-12-18 05:27] VITALS: BP 99/78
[2022-12-18 07:31] VITALS: BP 99/75
--- NOTE | 2022-12-18 07:47 | NUR ---
PT POINTS TO HEAD AND COMPLAINS OF PAIN. ABLE TO ANSWER YES/NO QUESTIONS. PT TOLERATES THICKENED FLUIDS AND CRUSHED MEDS. INCONTINENT WITH EXCORIATED SKIN IN VILLA AREA. DID NOT USE CALL LIGHT BUT CALLS OUT TO STAFF WE WALK BY THE DOOR. FIRE SAFETY REVIEWED. NO ACUTE CHANGES NOTED.
--- NOTE | 2022-12-18 15:19 | NUR ---
SHIFT SUMMARY MS FARIAS ANSWERS YES/NO QUESTIONS BY SHAKING HER HEAD AND NODDING. HER NO ANSWERS DO NOT ALWAYS CORRESPOND TO SHAKING/NODDING OF THE HEAD BUT HER SISTER ELISSA SAID TO GO WITH THE SHAKING AND NODDING OVER THE VERBAL. SHE POINTED AT THE CLOCK AND THIS INDICATES THAT SHE NEEDS PAIN MEDICATION ACCORDING TO ELISSA AND THIS WAS CONFIRMED BY MS FARIAS. SHE HAS TAKEN NORCO AND FIORICET FOR HEAD PAIN TODAY WHICH SHE INDICATED WAS HELPFUL. SHE HAS HAD NO PROBLEMS SWALLOWING THE THICKENED LIQUID AND PUREE DIET WITH HER HEAD ELEVATED, NO COUGHING. SHE IS ABLE TO HELP TO FEED HERSELF WITH HER LEFT HAND WHEN THE TREMORS ARE NOT SEVERE. TURNED AND REPOSITIONED IN BED, PROPPED UP WITH PILLOWS, PURE WICK IN PLACE AND WORKING. BED LOW, BED ALARM ON, CALL LIGHT IN REACH.
[2022-12-18 19:31] VITALS: BP 103/57
[2022-12-19 04:33] VITALS: BP 101/66
[2022-12-19 05:07] LABS: Albumin, Blood 3.3 g/dL (3.4-5.0); Anion Gap 5 mmol/L (6-16); Blood Urea Nitrogen 4 mg/dL (8-24); Bun/Creatinine Ratio 8.4 (12.0-20.0); CO2, Blood 29 mmol/L (21-32); Calcium, Blood 8.2 mg/dL (8.5-10.1); Chloride, Blood 109 mmol/L (98-108); Creatinine, Blood 0.48 mg/dL (0.40-1.00); Glomerular Filtration Rate 106 (60-); Glucose, Blood 101 mg/dL (70-99); Phosphorus, Blood 3.6 mg/dL (2.5-4.9); Potassium, Blood 3.8 mmol/L (3.5-5.5); Sodium, Blood 143 mmol/L (136-145)
--- NOTE | 2022-12-19 06:13 | NUR ---
NO ACUTE CHANGES NOTED. PAIN MEDS REQUESTED X2. PUREWICK IN PLACE. TOLERATING THICKENED FLUIDS. INCONTINENCE CARE AND REPOSITIONING ASSISTANCE PROVIDED. BLANCHABLE REDNESS TO SACRUM, MEPILEX IN PLACE. FIRE SAFETY REVIEWED.
[2022-12-19 07:56] VITALS: BP 100/70
--- NOTE | 2022-12-19 09:48 | NUR ---
pt called nurse into room then pointed at her head, asked her if she wants pain meds, she shook her head yes, a/o, makes needs known by hand gestures, medicated for pain, lungs clear on r/a, no cough noted, hrr, right hand is contracted, has a rolled up washcloth in it, left hand has a tremor, assisted with taking her medication, tends to suck the food off the spoon, encouraged her to scoop with her lips, and keep chin tucked, Dr. Bonilla in to see her, plan for snf, incont, purwick in place, mepilex on coccyx, bed rest, call light in reach.
[2022-12-19 15:08] VITALS: BP 106/66
--- NOTE | 2022-12-19 18:24 | NUR ---
pt was more aggitated this am, complaining of some discomfort in the pelvic, area, did a bladder scan only had 200mls showing, rested this afternoon much better, no signs of seizure activity this shift. No acute changes this shift. call light in reach.
[2022-12-19 19:15] VITALS: BP 109/75
[2022-12-20 05:49] VITALS: BP 94/64
--- NOTE | 2022-12-20 06:33 | NUR ---
SHIFT SUMMARY PT YELLING OUT AND HOLDING R ARM. NODS YES TO PAIN. PRN NORCO GIVEN WITH NO RELIEF. PT STILL CRYING, UNABLE TO TELL IF PT HAS A HEADACHE BECAUSE SHE IS NOT NODDING APPROPRIATELY AT THIS TIME. PRN FIORICET GIVEN WITH NO RELIEF AND PT HOLDING R ARM, WHICH IS CONTRACTED. LOOKED UP PATIENT'S PRIOR TO ADMISSION MEDICATIONS. ON EMERGENCY ROOM PROVIDER'S H&P NOTE PT WAS GETTING BACLOFEN 10MG TID, AND XANAX 0.25MG NIGHTLY ALONG WITH OTHER MEDICATIONS. CALLED DR. EARL WHO WAS CEREAL POPPER AND EXPLAINED THIS TO HER. SHE PUT IN MOST OF THE MISSING MEDICATIONS, HOWEVER WAS UNSURE ABOUT PATIENTS SINIMET DOSAGE SO THIS MEDICATION WAS NOT ORDERED. BACLOFEN, TOPIMAX, AND PRN XANAX GIVEN. PT FELL ASLEEP AND APPEARED COMFORTABLE SHORLTY AFTER ADMIN. ON VS DRILLING FIELD PROFESSIONAL NOTIFIED OF O2 SAT OF 88%, DID NOT SEE A HISTORY OF COPD, PLACED PT ON 2L NC TO INCREASE O2 SAT TO 92%, PT WAS STILL VERY SLEEPY AT THIS TIME. AROUND 0620 PT CYRING IN PAIN AGAIN HOLDING HER R ARM. PRN BID NORCO GIVEN, WILL PASS ON TO ONCOMING NURSE TO REASSESS EFFECTIVENESS IT IS CHANGE OF SHIFT. FIRE SAFETY REVIEWED, NO IGNITION SOURCES.
[2022-12-20 07:02] LABS: BASOPHILS ABSOLUTE AUTO 0.02 K/mm3 (0.00-0.23); BASOPHILS PERCENT AUTO 0 % (0-2); EOSINOPHILS ABSOLUTE AUTO 0.27 K/mm3 (0.00-0.68); EOSINOPHILS PERCENT AUTO 5 % (0-6); Hematocrit 38.2 % (33.0-51.0); Hemoglobin 12.4 g/dL (11.5-16.0); IMMATURE GRAN ABSOLUTE AUTO 0.03 K/mm3 (0.00-0.10); IMMATURE GRAN PERCENT AUTO 1 % (0-1); LYMPHOCYTES ABSOLUTE AUTO 1.57 K/mm3 (0.84-5.20); LYMPHOCYTES PERCENT AUTO 30 % (21-46); MONOCYTES ABSOLUTE AUTO 0.63 K/mm3 (0.16-1.47); MONOCYTES PERCENT AUTO 12 % (4-13); Mean Corpuscular HGB 29.8 pg (26.0-34.0); Mean Corpuscular HGB Conc 32.5 g/dL (31.5-36.5); Mean Corpuscular Volume 92 fL (80-100); Mean Platelet Volume 9.8 fL (9.1-12.4); NEUTROPHILS ABSOLUTE AUTO 2.73 K/mm3 (1.96-9.15); NEUTROPHILS PERCENT AUTO 52 % (41-73); Platelet Count 204 K/mm3 (150-400); RDW Coefficient Variation 13.8 % (11.7-14.2); RDW Standard Deviation 46.9 fL (35.1-46.3); Red Blood Cell Count 4.16 M/mm3 (3.80-5.20); White Blood Cell Count 5.25 K/mm3 (4.00-11.30)
[2022-12-20 07:24] LABS: Bun/Creatinine Ratio 13.5 (12.0-20.0); Calcium, Blood 8.4 mg/dL (8.5-10.1); Creatinine, Blood 0.52 mg/dL (0.40-1.00); Potassium, Blood 4.1 mmol/L (3.5-5.5)
[2022-12-20 07:52] VITALS: BP 106/69
--- NOTE | 2022-12-20 12:28 | NUR ---
WORKED WITH PT, 1:1 FEEDER, PATIENT DID WELL LETTING HER NEEDS KNOW WITH THE FOOD, NO COUGHING, ASPIRATION PRECAUTIONS IN PLACE
--- NOTE | 2022-12-20 15:17 | NUR ---
FAMILY IN VISITING PATIENT
--- NOTE | 2022-12-20 18:25 | NUR ---
NO ACUTE CHANGES, ERNIE HAD LARGE FIRM STOOL, 2 PERSON TOTAL ASSIST TO BSC, FAMILY IN TODAY. GENERAL MAGISTRATE NAEEM HELPING FAMILY, PATIENT LETS HER NEEDS KNOWN, MEDICATED X3 FOR HEADACHE AND ABD PAIN, BED BOUND, CALL LIGHT WITH IN REACH
[2022-12-20 19:42] VITALS: BP 95/60
[2022-12-21] VITALS (50 sets, daily range): BP systolic 70–148; BP diastolic 42–83
--- NOTE | 2022-12-21 05:19 | NUR ---
SHIFT SUMMARY PT C/O R ARM PAIN, NORCO GIVEN X1 WITH POSITIVE EFFECT. PT SLEPT THE REMAINDER OF THE NIGHT. FIRE SAFETY REVIEWED, NO IGNITION SOURCES
[2022-12-21 06:02] LABS: BASOPHILS ABSOLUTE AUTO 0.03 K/mm3 (0.00-0.23); BASOPHILS PERCENT AUTO 1 % (0-2); EOSINOPHILS ABSOLUTE AUTO 0.23 K/mm3 (0.00-0.68); EOSINOPHILS PERCENT AUTO 4 % (0-6); Hemoglobin 12.2 g/dL (11.5-16.0); IMMATURE GRAN ABSOLUTE AUTO 0.03 K/mm3 (0.00-0.10); IMMATURE GRAN PERCENT AUTO 1 % (0-1); LYMPHOCYTES PERCENT AUTO 25 % (21-46); MONOCYTES ABSOLUTE AUTO 0.69 K/mm3 (0.16-1.47); MONOCYTES PERCENT AUTO 11 % (4-13); Mean Corpuscular HGB 30.3 pg (26.0-34.0); Mean Corpuscular HGB Conc 32.1 g/dL (31.5-36.5); Mean Corpuscular Volume 94 fL (80-100); Mean Platelet Volume 9.8 fL (9.1-12.4); NEUTROPHILS ABSOLUTE AUTO 3.77 K/mm3 (1.96-9.15); NEUTROPHILS PERCENT AUTO 59 % (41-73); Platelet Count 184 K/mm3 (150-400); RDW Coefficient Variation 13.7 % (11.7-14.2); RDW Standard Deviation 48.1 fL (35.1-46.3); Red Blood Cell Count 4.03 M/mm3 (3.80-5.20); White Blood Cell Count 6.35 K/mm3 (4.00-11.30)
[2022-12-21 06:21] LABS: Bun/Creatinine Ratio 14.6 (12.0-20.0); Calcium, Blood 8.3 mg/dL (8.5-10.1); Creatinine, Blood 0.62 mg/dL (0.40-1.00); Potassium, Blood 4.2 mmol/L (3.5-5.5)
--- NOTE | 2022-12-21 10:32 | NUR ---
FAMILY IN VISITNG, POSSIBLE DISCHARGE TO [facility] DIRECTOR NAEEM TO FOLLOW UP WITH FAMILY ON THE OPTIONS FOR FURTHER NEEDS
--- NOTE | 2022-12-21 11:49 | NUR ---
"Spiritual Care | Rapid Response Pt. displayed evidence of seizures. As the RR Team was stablizing the Pt. this service advisor facilitated Spiritual Care support for the family at bedside. After the Pt. was moved back into her bed, the Pt. displayed evidece of being aware and responsive. Pts. daughter verbalized that the Pt. was Mosque. Pt. welcomed prayer. Prayed with Pt. Family verbalized gratitude for the spiritual care support. Will remain available to the Pt. and family."
[2022-12-21 13:02] LABS: Magnesium, Blood 2.3 mg/dL (1.6-2.4); Valproic Acid 65.4 ug/mL (50.0-100.0)
[2022-12-21 13:03] LABS: Alanine Aminotransfer (ALT/SGP 12 U/L (12-78); Albumin, Blood 3.3 g/dL (3.4-5.0); Albumin/Globulin Ratio 1.1 (0.8-1.8); Alk Phos 67 U/L (50-136); Anion Gap 8 mmol/L (6-16); Aspartate Aminotrans (AST/SGOT 6 U/L (12-37); Bilirubin, Total 0.2 mg/dL (0.1-1.0); Blood Urea Nitrogen 9 mg/dL (8-24); Bun/Creatinine Ratio 16.2 (12.0-20.0); CO2, Blood 27 mmol/L (21-32); Calcium, Blood 8.4 mg/dL (8.5-10.1); Chloride, Blood 105 mmol/L (98-108); Creatinine, Blood 0.55 mg/dL (0.40-1.00); Glomerular Filtration Rate 102 (60-); Glucose, Blood 113 mg/dL (70-99); Phosphorus, Blood 3.3 mg/dL (2.5-4.9); Potassium, Blood 3.6 mmol/L (3.5-5.5); Sodium, Blood 140 mmol/L (136-145); Total Protein, Blood 6.3 g/dL (6.4-8.2)
[2022-12-21 15:37] LABS: Valproic Acid 101.1 ug/mL (50.0-100.0)
--- NOTE | 2022-12-21 15:45 | NUR ---
patient to medical floor in room 306
--- NOTE | 2022-12-21 17:40 | NUR ---
PT TRANSFERRED TO PCU 10 FROM MEDICAL FLOOR AT 120 RECEIVED REPORT FROM LIDIA GUAJARDO. PT ARRIVED VIA BED WITH 2ND BAG OF DEPAKOTE FINISHED INFUSING. PT ONLY RESPONSIVE TO PAIN STIMULI MOSTLY WITH PINCHING FINGERTIPS REACTS WITH SOME FACIAL GRIMACES. BP ON THE SOFT SIDE SBP 70-80'S WITH MAP 55-60'S TOTAL ON 1500MLS BOLUS WAS INFUSED WITH NO IMPROVEMENT DR LOPEZ WAS GIVEN UPDATE CAME BY TO SEE PT ORDERED URGENT EEG POST ICTAL SEIZURES, ALSO END TIDAL CO2 MONITORING. SATS KEPT ABOVE 95% ON 2L OF O2 RR RANGING 9-11 SHALLOW BREATH WITH EPISODES OF DEEP BREATHS. FAMILY AT THE BEDSIDE DAUGHTER AND SISTER WHO ALSO TRIED WAKING THE PT UP STILL TIH NO RESPONSE EVEN AFTER REPOSTIONING A COUPLE TIMES. DR LOPEZ ORDER TO TRANSFER PT TO ICU FOR PRESSORS. PT TRANSFERRED TO ICU 5 VIA BED FAMILY WAS STILL AT THE BEDSIDE DURING THE TRANSFER. ALL BELONGINGS SENT WITH THE PT
--- NOTE | 2022-12-21 18:13 | NUR ---
PT TRANSFERED FROM PCU TO ICU FOR CLOSER MONITORING FOLLOWING SEDATION FOR SEIZURE TODAY. PT APPEARS POSTICTAL. SLEEPING, GRIMACES AND WITHDRAWALS LEFT HAND TO PAIN. DOES NOT OPEN EYES OR FOLLOW COMMANDS. PUPILS 4/4MM EQUAL AND REACTIVE. FAMILY AT BEDSIDE. PT HYPOTENSIVE W MAP AROUND 60, BRADYCARDIC W RATE 50'S. HYPOTHERMIC AT 95.6. PT PALE, COOL, AND SLIGHTLY DIAPHORETIC. LEVOPHED AVAILABLE. SENIOR ENVIRONMENTAL SCIENTIST PLACING POWERGLIDE. PT HAS ETCO2; MID 30'S. SATS 100% ON RA. RESP 9-12.
--- NOTE | 2022-12-21 18:26 | NUR ---
LEVOPHED STARTED AT 2MCG
--- NOTE | 2022-12-21 18:37 | NUR ---
Spiritual Care Follow up. Pt. is resting but Pts. daughter is present. Facilitated a life review with daughter at bedside and established rapport. Daughter is supportive. Daughter verbalizes that she feels Pt. wants to give up. Pt. lost her spouse in March. Daughter verbalized gratitude for the spiritual care visit. Will remain available to the family.
--- NOTE | 2022-12-21 19:00 | NUR ---
ASSUMPTION OF CARE CARE OF THE PATIENT WAS ASSUMED AT 1900. REPORT GIVEN BY ALEXANDRA GUAJARDO. PT SLEEPING IN BED WITH SISTER AT BEDSIDE. PT RESPONDS TO VERBAL STIMULI WITHOUT OPENING HER EYES. LEVOPHED RUNNING @1 MCG/MIN. PT ON ROOM AIR AND HAS ETCO2 MONITORING, 31. 02 SATS >93%. SBP IN 120S AT TIME OF REPORT. CARDIAC MONITORING REFLECTING SINUS REBECCA. SCD'S ALREADY APPLIED TO PT'S BLE.
[2022-12-22] VITALS (34 sets, daily range): BP systolic 72–155; BP diastolic 47–92
[2022-12-22 06:11] LABS: BASOPHILS ABSOLUTE AUTO 0.02 K/mm3 (0.00-0.23); BASOPHILS PERCENT AUTO 0 % (0-2); EOSINOPHILS PERCENT AUTO 2 % (0-6); Hematocrit 36.4 % (33.0-51.0); Hemoglobin 11.7 g/dL (11.5-16.0); IMMATURE GRAN ABSOLUTE AUTO 0.03 K/mm3 (0.00-0.10); IMMATURE GRAN PERCENT AUTO 1 % (0-1); LYMPHOCYTES ABSOLUTE AUTO 1.15 K/mm3 (0.84-5.20); LYMPHOCYTES PERCENT AUTO 21 % (21-46); MONOCYTES ABSOLUTE AUTO 0.48 K/mm3 (0.16-1.47); MONOCYTES PERCENT AUTO 9 % (4-13); Mean Corpuscular HGB Conc 32.1 g/dL (31.5-36.5); Mean Corpuscular Volume 93 fL (80-100); Mean Platelet Volume 9.9 fL (9.1-12.4); NEUTROPHILS ABSOLUTE AUTO 3.66 K/mm3 (1.96-9.15); NEUTROPHILS PERCENT AUTO 67 % (41-73); Platelet Count 171 K/mm3 (150-400); RDW Coefficient Variation 13.6 % (11.7-14.2); RDW Standard Deviation 46.2 fL (35.1-46.3); White Blood Cell Count 5.44 K/mm3 (4.00-11.30)
--- NOTE | 2022-12-22 06:21 | NUR ---
SHIFT SUMMARY ADONIS'S ALERTNESS AND RESPONSIVENESS HAS IMPROVED THROUGHOUT THE SHIFT. AT THE BEGINNING OF THE SHIFT THE PT WOULD RESPOND TO VERBAL STIMULI BY MOVING HER HEAD, BUT NOT OPENING HER EYES. THE PT NOW OPENS HER EYES TO VERBAL STIMULI AND NODS HER HEAD YES AND NO TO QUESTIONS. PT HAS NOT HAD ANY SEIZURES THIS SHIFT. CARDIAC MONITORING REFLECTED SINUS REBECCA WITH PT'S SBP RANGING FROM 90s TO 130s, MAINTAINING A MAP >65. PT'S LEVOPHED IS CURRENTLY ON SB. PT HAS BEEN ON ROOM AIR THIS SHIFT, 02 SATS >95%. PT HAS ETCO2 MONITORING, 33. PT HAD A BM THIS SHIFT. appssavvy URINARY DEVICE PATENT AND IN PLACE, 675 OUT THIS SHIFT. PLAN FOR TODAY IS FOR PT TO HAVE AN EEG DONE. WILL CONTINUE TO MONITOR UNTIL CARE IS TRANSITIONED TO DAY SHIFT.
[2022-12-22 06:35] LABS: Valproic Acid 108.2 ug/mL (50.0-100.0)
[2022-12-22 06:36] LABS: Alanine Aminotransfer (ALT/SGP 13 U/L (12-78); Albumin, Blood 2.9 g/dL (3.4-5.0); Alk Phos 64 U/L (50-136); Anion Gap 6 mmol/L (6-16); Aspartate Aminotrans (AST/SGOT 6 U/L (12-37); Bilirubin, Total 0.2 mg/dL (0.1-1.0); Blood Urea Nitrogen 4 mg/dL (8-24); Bun/Creatinine Ratio 7.3 (12.0-20.0); CO2, Blood 27 mmol/L (21-32); Calcium, Blood 7.9 mg/dL (8.5-10.1); Chloride, Blood 110 mmol/L (98-108); Creatinine, Blood 0.55 mg/dL (0.40-1.00); Glomerular Filtration Rate 102 (60-); Glucose, Blood 88 mg/dL (70-99); Potassium, Blood 3.9 mmol/L (3.5-5.5); Sodium, Blood 143 mmol/L (136-145); Total Protein, Blood 5.9 g/dL (6.4-8.2)
--- NOTE | 2022-12-22 09:00 | NUR ---
PT WAS AWAKE AND RESPONDING AT HER BASELINE OF FUNCTION. SPEECH THERAPY WAS IN SEEING PT WHEN SHE BECAME UNRESPONSIVE, NYSTAGMUS IN EYE'S, AND SOME JERKING MOVEMENTS OF L ARM. DR. LOPEZ NOTIFIED AND ONE DOSE OF ATIVAN GIVEN. AFTER ABOUT 15 MINUTES PT WAS ABLE TO OPEN EYE'S AND TRACK AGAIN. DELAYED RESPONSE BUT WAS EVENTUALLY ABLE TO GET BACK TO HER NORMAL RESPONSE. DR. LOPEZ WILL BE IN TO SEE PT. EEG REORDERED.
--- NOTE | 2022-12-22 11:15 | NUR ---
PT BACK TO RESPONDING AT HER BASELINE. DR. LOPEZ OK'D PT TO EAT IF AWAKE. PT ATE HALF A PUDDING WITH FEEDING ASSISTANCE THEN BECAME DIZZY. PT INTERACTIVE WITH SISTER AT BEDSIDE. LOADING DOSE OF KEPPRA STARTED.
--- NOTE | 2022-12-22 14:16 | NUR ---
Pt to begin Comfort Care. She is agreeable to this, and is also agreeable to move to an [facility]. Spoke to [facility] who will screen pt this weekend. Also spoke to her APD worker Jackie Leon, along with pt's healthcare advisory services manager in ICU. Both pt's daughter and sister are on board with the plan as well. They understand the move to [facility] is contigent on Jose accepting her, and [facility]. Received orders for Comfort Care from Dr. Bonilla.
--- NOTE | 2022-12-22 15:48 | NUR ---
Spiritual Care Visit. Pt. is somnolent and mostly non responsive. Pt.s daughter and sister are present at bedside. Facilitate more family life review. Pt. and Family had recently agreed to go Comfort Care (per Pt. chart), though the members present did not mention it is my presence. Family verbalized gratitude for the spiritual care visit.
--- NOTE | 2022-12-22 16:00 | NUR ---
PT DROWSY THIS AFTERNOON BUT ABLE TO REPOND AT HER BASELINE LEVEL. FAMILY IN ROOM HELPS DECIDING PT'S NEEDS. PT HAVING PAIN IN KNEE AND R NECK, GAVE NORCO AND IV MORPHINE WITH GOOD RESULTS. PT WAS MADE COMFORT CARE. PT MOVED TO ROOM 329, REPORT TO MARITZA GUAJARDO. PT TAKEN VIA BED, NO SIGN OF DISTRESS SHE LEAVES THE UNIT.
--- NOTE | 2022-12-22 16:35 | NUR ---
PT ARRIVED TO THE MEDICAL FLOOR VIA BED FROM THE ICU ACCOMPANIED BY HER FAMILY. REPORT TAKEN FROM GORDON GUAJARDO. PT CHANGED AND REPOSITIONED SKIN ASSESSMENT DONE. SECOND NURSE WAS ELOISA GUAJARDO. THE PT AND FAMILY WERE ORIENTED TO THE ROOM CALL SYSTEM. CALL LIGHT IN REACH.
--- NOTE | 2022-12-22 17:28 | NUR ---
PT AWAKE/ALERT, DAUGHTER AT THE BEDSIDE. PT APPEARS TO BE BREATHING EASILY ON RA AT THIS TIME. THE PTS TOOK SOME SMALL THIN LIQUID SIPS FROM HER DAUGHTER. THE PT APPEARS TO BE COMFORTABLE AT THIS TIME. WILL CONTINUE TO MONITO AND ASSESS FOR CHANGES
--- NOTE | 2022-12-23 07:34 | NUR ---
PT IS ON COMFORT CARE, AOX4, CALLS OUT TO MAKE NEEDS KNOWN, REQUESTED PAIN MEDS X1, REFUSED PAIN MEDS DURING SHIFT REPORT. PER DAUGHTER, PT WILL HOPEFULLY [facility] TOMORROW OR MONDAY. NO ACUTE CHANGES NOTED. TOLERATED CRUSHED PILLS IN APPLESAUCE. COCCYX WOUND IS WEEPING SCANT AMOUNTS OF BLOOD, OFFLOADING AND USING MEPILEX.
[2022-12-23 10:44] LABS: Valproic Acid 74.3 ug/mL (50.0-100.0)
--- NOTE | 2022-12-23 14:33 | NUR ---
Spiritual Care Visit. Pt. is comfort care and mostly non reponsive. Pts. daughter is preasent and speaking to a volunteer. Daughter is unsettled about the care the Pt. has received since being made comfort care. Listened with empathy and a calming presence. Attempt to redirect the focus with life review. Pt. would ocassionally "wake up" but was not responsive at all. Sought to normalize the Pt. expereince. Pts. daughter displayed evdience of some understanding and verbalized gratitude for the spiritual care visit.
--- NOTE | 2022-12-23 18:38 | NUR ---
PT PLEASNT TODAY. FAMILY IN TO SEE DURING DAY. PT ATE HOME FOOD FOR LUNCH AND ATE MOST OF DINNER THIS LUCRETIA. KEEPING TURNED AND KEPT DRY. ALSO HAS PUREWICK IN PLACE. REPLACED AT 1830. NO OTHER CONCERNS NOTED. BED IN LOW POSITION, CALL LITE IN REACH, CALL LITE IN REACH/ SISTER STATES AT 1830 SHE LEAVING, BUT PT COMFORTABLE AT THIS TIME. NO OTHER CONCERNS NOTED. BED IN LOW POSITION., CALL LITE IN REACH, CALLS APROP
--- NOTE | 2022-12-24 01:38 | NUR ---
SHIFT SUMMERY, PT APPEARED TO BE VERY UNCOMFORTABLE, PT BECOMING VERY RESLESS AND MAKING NOISES. PT IS NON VERBAL. GAVE PT PAIN MED AND HS XANAX. PT SEEMS VERY COMFORTABLE AT THIS TIME. RESPERATIONS EVEN AND UNLABORED. PT TOOK MEDS CRUSED IN APPLESAUSE WITH OUT DIFFICULTY. CALL LIGHT IN REACH.
[2022-12-24 08:44] VITALS: BP 101/64
--- NOTE | 2022-12-24 09:56 | NUR ---
Patient is total assist for ANY care. Family stated patient needed to use the bedside commode. I told family that if the patient was not safe to transfer, we would need to use the bedpan instead. Patient and family refused the bedpan and were insistent on using the bedside commode. Patient and family were notified by CASANDRA Grant that this is a "No lift faciltiy".
--- NOTE | 2022-12-24 10:25 | NUR ---
PT REQUEST BSC. FAMILY ASKED AIDE TO MOVE TO BSC. A NO LIFT FACILITY, CALLED ME FOR ASSISTANCE. FAMILY UPSET AND STATES WE HAVE ATTITUDE. EXPLAINED TO HER MANY TIMES STAFF IS INJURED WHEN MOVING PATIENTS THAT ARE UNABLE TO BEAR WEIGHT. SISTER WILL HAVE DAUGHTER COME AND LIFT HER HERSELF. EXPLAINED IS NOT OUR POLICY AND COULD INJURE SELF. DAUGHTER STATES NOT A CONCERN. STATES DOES ALL THE TIME. ADVISED AGAINST PERSONAL LIFTING. SHE LIFTED PT AGAINST OUR ADVISE. NO ISSUES NOTED DURING TRANSFERS.
--- NOTE | 2022-12-24 17:30 | NUR ---
PT PLEASANT TODAY. C/OO PAIN THIS DAY EARLIER THIS AFT. GAVE NORCO BID. C/O PAIN LATER THIS AFT/LUCRETIA. TRIED 1 MG MORPHINE. PT STATES BETTER. RESTING PEACEFULLY. FAMLILY IN TODAY, [facility] PROVIDER IN TO VISIT [place]. CARE MGMT STATES LIKELY CANNOT D/C UNTIL TU R/T MONIES THRU AGENCY . NO OTHER CONCERNS NOTED. BED IN LOW POSITION, CALL LITE IN REACH, FAMILY AT BEDSIDE/
--- NOTE | 2022-12-25 06:03 | NUR ---
SHIFT SUMMARY PRN XANAX GIVEN WITH NIGHT MEDICATIONS. NO C/O PAIN. FED PT DINNER, ATE APPROXIMATELY 1/4 OF MEAL. FIRE SAFETY REVIEWED, NO IGNITION SOURCES.
[2022-12-25 07:50] VITALS: BP 99/70
--- NOTE | 2022-12-25 18:39 | NUR ---
SHIFT SUMMARY PT AXO TO SELF AND CAN ANSWER YES/NO QUESTIONS. PT ON COMFORT CARE. REPOSITIONED Q2. MEDICATED FOR PAIN PER EMAR. IV PATENT AND SALINE LOCKED. PT RESTING COMFORTABLY AT THIS TIME. BED IN LOW POSITION, CALL LIGHT WITHIN REACH. PURWICK NOT IN PLACE AT THIS TIME.
[2022-12-26 06:39] VITALS: BP 110/63
--- NOTE | 2022-12-26 06:39 | NUR ---
SHIFT SUMMARY PRN PAIN MEDICATION GIVEN AT BEGNINNIG OF SHIFT WITH POSITIVE EFFECT. PT SLEPT REMAINDER OF SHIFT. FIRE SAFETY REVIEWED, NO IGNITION SOURCES
--- NOTE | 2022-12-26 17:38 | NUR ---
PT IS ALERT, PLESANT AND COOPERATIVE. SHE SLEPT FOR MOST OF THIS SHIFT. DAUGHTER WAS AT BEDSIDE THIS AFTERNOON. HER BED IS IN THE LOW POSTION AND CALL LIGHT IS WITIN REACH.
--- NOTE | 2022-12-27 06:31 | NUR ---
SHIFT SUMMARY NO EVENTS OVERNIGHT, PRN NORCO GIVEN X1 AND PRN XANAX GIVEN AT BEDTIME FOR ANXIETY. SLEPT THROUGH THE NIGHT. FIRE SAFETY REVIEWED NO IGNITION SOURCES
--- NOTE | 2022-12-27 11:01 | NUR ---
Pt's sister Juju called this am. She states the pt is leaving the hospital around 2pm today to [facility]. Juju does agree the pt has been well cared for and received adequate pain control over the long weekend. Pt appears to be resting with eyes closed this am.
[2022-12-27] MEDS ORDERED: VALPROIC A250 MG/53 PO (13:38)
== END 2022-12-27 14:07 | disposition hospice, home (50) | DRG 100 ==
LOC: ER 19:57 → ICUE 19:58 → PCU 12-14 13:40 → MEDS 12-17 15:53 → PCU 12-21 12:30 → ICUE 12-21 17:19 → MEDS 12-22 16:35 → ENPENDDIS 12-27 10:59 → MEDS 12-27 14:07
PROVIDERS: Family Medicine; Internal Medicine; Student in an Organized Health Care Education/Training Program; ADMIT Internal Medicine
PROC: 3E033XZ Introduction of Vasopressor into Peripheral Vein, Percutaneous Approach (ICD-10-PCS; principal; 2022-12-13)
DX: G40.901 Epilepsy, unspecified, not intractable, with status epilepticus (principal); G93.41 Metabolic encephalopathy; I69.351 Hemiplegia and hemiparesis following cerebral infarction affecting right dominant side; J96.11 Chronic respiratory failure with hypoxia; R13.10 Dysphagia, unspecified; E87.6 Hypokalemia; Z51.5 Encounter for palliative care; Z66 Do not resuscitate; I69.320 Aphasia following cerebral infarction; I69.391 Dysphagia following cerebral infarction; G20 Parkinson's disease; F32.A Depression, unspecified; W06.XXXA Fall from bed, initial encounter; F41.9 Anxiety disorder, unspecified; Z79.899 Other long term (current) drug therapy; Z79.51 Long term (current) use of inhaled steroids; Z79.891 Long term (current) use of opiate analgesic; Z87.19 Personal history of other diseases of the digestive system; Z87.01 Personal history of pneumonia (recurrent); Z90.710 Acquired absence of both cervix and uterus; Z98.890 Other specified postprocedural states; Z87.891 Personal history of nicotine dependence; Z86.79 Personal history of other diseases of the circulatory system; Z99.3 Dependence on wheelchair
CPT/HCPCS: 36415; 70450; 70496; 70498; 70551; 73060; 73090; 73120; 74230; 80048; 80053; 80069; 80164; 80177; 82947; 83735; 84100; 85025; 92526; 92610; 92611; 94760; 94762; 95819; 96365; 96366; 96368; 96375; 96376; 97112; 97162; 97166; 97530; 97535; 99285-25; A9270; C1751; J1650; J1953; J2060; J2270; J3475; J3480; J7030; J7040; J7050; J7060; Q9967